=== PATIENT | female | born 1940 | race Hispanic/Latino ===

== ENCOUNTER 2017-06-08 06:16 | Day surgery (SDC) | payer MEDICARE ==
[2017-06-05 08:45] VITALS: BMI 17.8
[2017-06-08] MEDS ORDERED: Lidocaine 2% Inj (20ml) ONE ×3 (06:33→11:09)
[2017-06-08] MEDS ORDERED: Heparin 2,000 ML IV ONE (06:34)
[2017-06-08] MEDS ORDERED: Iodixanol 320 MG/ML 100 ML BOTTLE IV ONE ×2 (06:34→11:11)
[2017-06-08] MEDS ORDERED: Nitroglycerin 50mg in D5W 0 MG/0 ML BOTTLE IV ONE (06:34)
[2017-06-08] MEDS ORDERED: Phenylephrine 10 mg/ml Inj ONE (06:34)
[2017-06-08] MEDS ORDERED: Iodixanol 320 MG/ML 200 ML BOTTLE IV ONE ×2 (06:34→11:11)
[2017-06-08] MEDS ORDERED: Iohexol 350mgl/ml 50 ML ONE (06:34)
[2017-06-08 07:26] LABS: BASO # 0.03 K/mm3 (0.0-2.0); BASO % 0.6 % (0.0-3.0); EOS # 0.1 (0.0-0.7); EOS % 2.6 % (1.5-5.0); GRAN # 3.04 (1.4-6.5); GRAN % 61.6 % (50.0-68.0); HEMATOCRIT 35.4 % (36.0-48.0); LYMPH # 1.3 (1.2-3.4); LYMPH % 25.9 % (22.0-35.0); MEAN CELL VOLUME 95.2 fl (80.0-105.0); MEAN CORPUSCULAR HEMOGLOBIN 32.8 pg (25.0-35.0); MEAN CORPUSCULAR HGB CONC 34.5 g/dl (31.0-37.0); MEAN PLATELET VOLUME 9.6 fl (7.0-11.0); MONO # 0.5 (0.1-0.6); MONO % 9.3 % (1.0-6.0); RED CELL DISTRIBUTION WIDTH 13.3 % (11.5-14.5); WHITE BLOOD COUNT 4.9 10^3/ul (4.5-11.0)
[2017-06-08 07:35] LABS: BLOOD UREA NITROGEN 36 mg/dL (7-21); CALCIUM 9.5 mg/dL (8.4-10.5); CARBON DIOXIDE 40 mmol/L (21-33); CHLORIDE 88 mmol/L (98-107); CHOLESTEROL 169 mg/dL (130-200); GFR AFRICAN-AMERICAN > 60; GLUCOSE,RANDOM 95 mg/dL (70-110); SODIUM 134 mmol/L (132-148)
[2017-06-08 07:39] LABS: INR 1.08 (0.93-1.08); PARTIAL THROMBOPLASTIN TIME 29.1 Seconds (23.7-30.8)
[2017-06-08 07:49] LABS: POTASSIUM 2.6 mmol/L (3.6-5.0)
[2017-06-08] MEDS ORDERED: Potassium Chloride 20 mEq ER Tab PO ONE (07:55)
[2017-06-08] MEDS ORDERED: Midazolam 2 MG/2 ML VIAL ONE ×4 (08:29→12:36)
[2017-06-08] MEDS ORDERED: Sodium Chloride 0.9% 1,000 ML IV SCH (10:00)
[2017-06-08] MEDS ORDERED: Nitroglycerin 50mg in D5W 50 MG/250 ML BOTTLE IV ONE (11:11)
[2017-06-08] MEDS ORDERED: Sodium Chloride 0.45% 1,000 ML IV SCH (13:45)
--- NOTE | 2017-06-08 13:46 | CARDCATH ---
PROCEDURE DATE: 06/08/2017 HISTORY: The patient is a 76-year-old woman who presents with marked shortness of breath. She was found to have critical aortic stenosis on her echocardiogram. She suffers from severe peripheral vascular disease due to her heavy smoking. PROCEDURE: Right and left heart catheterization with coronary angiography and left ventriculogram. The patient accessed through the femoral arteries, unable due to marked calcification and marked atherosclerosis in the femoral arteries. The catheterization was performed with a 6-Irish sheath in the left brachial area. There were no complications. The findings on catheterization including hemodynamic data which revealed normal right heart pressures. No pulmonary retention was noted. Her left ventricle was visualized in the PERSON projection. In the PERSON projection, wall motion is within normal limits. Estimated ejection fraction of 60%. Simultaneous supra-aortic valvular measurement and LV measurement revealed a [id number] gradient of 20 mmHg. Her coronary anatomy revealed a right dominant circulation. The RCA was visualized and found to have intimal irregularities without significant stenoses. The left main artery was unremarkable. The LAD and diagonal vessels revealed intimal irregularities without significant stenoses. The circumflex artery revealed an eccentric and calcified 70% to 80% stenosis in its proximal portion. Manual compression was used to close the femoral artery site as well as left brachial site. 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 Mild aortic stenosis. Normal LV function. No pulmonary hypertension. Severe peripheral vascular disease. Given these findings, it was elected not to do angioplasty and stenting of the proximal circumflex artery. Given her need for eye surgery urgently. Her mild aortic stenosis, we will allow her to undergo the procedure at reasonable risk. I have put her on beta blockers for some cardial protective for anesthesia. I have discussed this with the patient and daughter in detail. The need to stop smoking was emphasized. Sanju Rich MD
[2017-06-08 16:03] VITALS: TEMP 98.4
[2017-06-08 16:44] VITALS: O2SAT 97
[2017-06-08 17:34] VITALS: BP 112/70; PULSE 94; RESP 18
--- NOTE | 2017-06-08 20:30 | VASCULAR ---
PROCEDURE: 1. Arch arteriogram 2. Selective left upper extremity arteriogram. HISTORY: Status post cardiac catheterization via brachial artery approach. Acute left hand ischemia. Evaluate brachial artery puncture site for occlusion. PHYSICIAN(S): Sanju Contrears M.D. TECHNIQUE: The relative risks and indications of the procedure were explained to the patient and consent obtained. The patient was hydrated prior to the procedure and the appropriate labs drawn. The patient was placed supine on the arteriogram table and the right groin prepped and draped in the usual sterile fashion. Conscious sedation and monitoring were provided throughout the procedure by a nurse. Via a right common femoral artery approach, a 5 Estonian sheath was placed in the right groin. Through the sheath and over a guidewire, a 5 Estonian flush catheter was placed in the aortic arch and an LATVIAN DSA arch arteriogram performed. The catheter was exchanged for a 5 Estonian day this catheter placed the origin of the subclavian artery. With some difficulty the elongated arch was negotiated in the catheter placed in the mid left subclavian artery. An overlapping DSA left upper extremity arteriogram was performed. Distal imaging was obtained. The sheath was removed hemostasis obtained. The patient tolerated the procedure well. FINDINGS: The arch and great vessels are heavily calcified. The arch is elongated. The images are degraded by motion. The great vessels appear patent. The left vertebral artery appears to arise directly from the arch. The left subclavian artery is patent. There is slow flow in the left brachial artery initially consistent with a distal occlusion. 0.035 J-wire was advanced distally. At this point the patient noted abrupt change in the perfusion the hand. Imaging revealed a widely patent left brachial artery. No evidence of focal trauma or thrombus was appreciated. Brisk flow is seen into the left radial and ulnar arteries. Distal imaging is normal. The pulmonic she is intact. The metacarpal arteries are normal. IMPRESSION: 1.Normal left upper extremity arteriogram. There is an abrupt change in the clinical dilatation of the left hand as a J wire was advanced into the distal left brachial artery. No thrombus or vessel trauma was appreciated. No distal emboli are seen.
--- NOTE | 2017-06-08 21:30 | CARD ---
APPROVED REPORT EKG Measurement Heart [id number] <Conclusion> Normal sinus rhythm Normal ECG
== END 2017-06-08 18:20 | disposition home or self-care (01) ==
LOC: CATH 06:16
PROVIDERS: ATTEND Internal Medicine Cardiovascular Disease
DX: I25.10 Atherosclerotic heart disease of native coronary artery without angina pectoris (principal); I35.0 Nonrheumatic aortic (valve) stenosis; I73.9 Peripheral vascular disease, unspecified
CPT/HCPCS: 36225; 36415; 80048; 80061; 85025; 85610; 85730; 86850; 86900; 93005; 93460; 99152; 99153; C1769 ×3; C1894; C2629; J1644; J2250; J2405; J3010; J3480; J7030; J7040 ×2; Q9967

== ENCOUNTER 2017-09-08 17:12 | Emergency (ER) | payer MEDICARE ==
[2017-09-08 17:19] VITALS: BMI 19.7
[2017-09-08 17:39] VITALS: RESP 18
--- NOTE | 2017-09-08 18:38 | RAD ---
HISTORY: cough/weakness COMPARISON: 06/16/2016 FINDINGS: LUNGS: Perihilar infiltrate, mass right upper lobe. The finding is marked on the study for review. PLEURA: No significant pleural effusion identified, no pneumothorax apparent. CARDIOVASCULAR: Normal. OSSEOUS STRUCTURES: Degenerative changes right shoulder. Findings related to kyphoplasty lower thoracic vertebral body. VISUALIZED UPPER ABDOMEN: Normal. OTHER FINDINGS: None. IMPRESSION: Right upper lobe infiltrate/ mass. Follow-up to resolution strongly recommended. Please note: If Neoplasm is suspected CT scan of the thorax advised. .
[2017-09-08 18:49] LABS: BASO # 0.01 K/mm3 (0.0-2.0); BASO % 0.1 % (0.0-3.0); GRAN # 9.4 (1.4-6.5); GRAN % 89.4 % (50.0-68.0); HEMOGLOBIN 13.1 g/dL (12.0-16.0); LYMPH # 0.6 (1.2-3.4); LYMPH % 5.2 % (22.0-35.0); MEAN CELL VOLUME 99.5 fl (80.0-105.0); MEAN CORPUSCULAR HEMOGLOBIN 33.6 pg (25.0-35.0); MEAN CORPUSCULAR HGB CONC 33.8 g/dl (31.0-37.0); MEAN PLATELET VOLUME 10.7 fl (7.0-11.0); MONO # 0.6 (0.1-0.6); MONO % 5.3 % (1.0-6.0); RBC 3.9 10^6/uL (3.5-6.1); RED CELL DISTRIBUTION WIDTH 13.2 % (11.5-14.5); WHITE BLOOD COUNT 10.5 10^3/ul (4.5-11.0)
[2017-09-08 19:05] LABS: ALB/GLOB RATIO 1.2 (1.1-1.8); ALBUMIN 4.5 g/dL (3.0-4.8); CALCIUM 10.6 mg/dL (8.4-10.5)
[2017-09-08 19:09] LABS: PARTIAL THROMBOPLASTIN TIME 66.8 Seconds (25.1-36.5); PROTHROMBIN TIME 74.4 SECONDS (9.4-12.5)
--- NOTE | 2017-09-08 19:11 | ED PDOC ---
"Arrival/HPI <Staci Soares - Last Filed: 09/09/17 01:30> - General Historian: Patient <Carolee Carrasquillo - Last Filed: 09/09/17 02:08> - General Chief Complaint: Back Pain Time Seen by Provider: 09/08/17 17:26 - History of Present Illness Narrative History of Present Illness (Text): 09/08/17 19:06 76yr old female presents today with chronic neck and back pain. pt states since she had eye surgery on jun 15 2017 and had to use her walker more she started to develop neck pain on the right side. Pt states over time pain has radiated into the right hand with decreased sensation. pt states she then developed pain to the left side of the neck and tingling sensation into the left hand. pt states he has been dealing with chronic back pain and is on percocet at home. pt states over the past week she has noticed that she has been becoming more weak in the bilateral lower extremities and yesterday had become constipated and noticed numbness to the buttock. pt states she has been having a tingling sensation in the lower legs bilaterally for the week, gradually worsening, and around 11am today the patient states that she has become incontinence of stool. pt denies fever/chill. pt with hx of cough. denies any other complaints. (Carolee Carrasquillo) Past Medical History - Provider Review Nursing Documentation Reviewed: Yes - Travel History Have you recently traveled outside [place] w/in the past 3 mons?: No - Infectious Disease Hx of Infectious Diseases: None - Tetanus Immunization Tetanus Immunization: Unknown - Reproductive Menopause: Yes - Cardiac Hx Pacemaker: No - Pulmonary Hx Chronic Obstructive Pulmonary Disease (COPD): Yes - Neurological Hx Paralysis: No - HEENT Hx Cataracts: Yes (b/l cataracts no sx) Other/Comment: sx for detached retina right eye 2 days ago 2nd sx same eye uses silicone oil, first sx used gas bubble which did not work, visually impaired right eye sees shadows and diminished peripheral vision - Renal Hx Renal Disorder: No - Endocrine/Metabolic Hx Endocrine Disorders: No - Hematological/Oncological Hx Blood Transfusions: Yes Hx Blood Transfusion Reaction: No - Integumentary Hx Dermatological Disorder: No Other/Comment: rle varicone veins, dry skin to feet, buttocks reddened, multiple brown spots on upper back - Musculoskeletal/Rheumatological Hx Musculoskeletal Disorders: Yes - Gastrointestinal Hx Gastrointestinal Disorders: No - Genitourinary/Gynecological Hx Reproductive Disorders: No - Psychiatric Hx Emotional Abuse: No Hx Physical Abuse: No Hx Substance Use: No - Surgical History Hx Musculoskeletal Surgery: Yes (left hip replacement) Other/Comment: kyphoplasty - Anesthesia Hx Anesthesia Reactions: No Hx Malignant Hyperthermia: No - Suicidal Assessment Feels Threatened In Home Enviroment: No <Carolee Carrasquillo - Last Filed: 09/09/17 02:08> Family/Social History - Physician Review Nursing Documentation Reviewed: Yes Family/Social History: Unknown Family HX Smoking Status: Heavy Smoker > 10 Cigarettes Daily Hx Alcohol Use: No Hx Substance Use: No Hx Substance Use Treatment: No <Carolee Carrasquillo - Last Filed: 09/09/17 02:08> Allergies/Home Meds <Staci Soares - Last Filed: 09/09/17 01:30> <Carolee Carrasquillo - Last Filed: 09/09/17 02:08> Allergies/Adverse Reactions: Allergies No Known Allergies Allergy (Verified 06/16/16 19:00) Home Medications: Home Meds Medication Instructions Recorded Confirmed Albuterol Sulfate 2.5 mg IH QID 09/08/17 09/08/17 Alprazolam [Xanax] 0.5 mg PO BID 09/08/17 09/08/17 Docusate [Colace] 100 mg PO DAILY 09/08/17 09/08/17 Furosemide [Lasix] 40 mg PO DAILY 09/08/17 09/08/17 Iron Ps Cmplx/Vit B12/FA 150 mg PO DAILY 09/08/17 09/08/17 [Poly-Iron 150 Forte Capsule] Oxycodone HCl/Acetaminophen 7.5 mg PO PRN PRN 09/08/17 09/08/17 [Percocet 7.5-325 mg Tablet] Potassium Chloride [Klor-Con] 50 mg PO DAILY 09/08/17 09/08/17 Simvastatin 10 mg PO DAILY 09/08/17 09/08/17 Warfarin [Coumadin] 6 mg PO DAILY 09/08/17 09/08/17 metOLazone [Zaroxolyn] 2.5 mg PO DAILY 09/08/17 09/08/17 Review of Systems - Review of Systems Systems not reviewed;Unavailable: Other (weakness) Constitutional: absent: Fatigue, Fevers Respiratory: Cough. absent: SOB, Wheezing Cardiovascular: absent: Chest Pain, Palpitations Gastrointestinal: Constipation, Diarrhea. absent: Abdominal Pain, Nausea, Vomiting Genitourinary Female: absent: Dysuria, Vaginal Bleeding, Vaginal Discharge Musculoskeletal: Arthralgias, Back Pain, Neck Pain Neurological: Gait Changes, Other (bilateral lower leg weakness, saddle paresthesias x2 days). absent: Headache, Dizziness, Speech Changes Psychiatric: absent: Anxiety, Depression <Azoia,Carolee T - Last Filed: 09/09/17 02:08> Physical Exam Vital Signs Reviewed: Yes Temperature: Afebrile Blood Pressure: Normal Pulse: Regular Respiratory Rate: Normal Appearance: Positive for: Well-Appearing, Non-Toxic, Comfortable Pain Distress: None Mental Status: Positive for: Alert and Oriented X 3 - Systems Exam Head: Present: Atraumatic Mouth: Present: Moist Mucous Membranes Neck: Present: Normal Range of Motion Respiratory/Chest: Present: Good Air Exchange, Rhonchi. No: Clear to Auscultation, Respiratory Distress, Accessory Muscle Use, Wheezes, Decreased Breath Sounds Cardiovascular: Present: Regular Rate and Rhythm. No: Murmurs, Tachycardic Abdomen: Present: Normal Bowel Sounds. No: Tenderness, Distention, Peritoneal Signs, Rebound, Guarding Rectal: Present: Other (no). No: Occult Blood, Rectal Tenderness, Melena, Hemorrhoids, Normal Rectal Tone (NO rectal tone), Fissures, Nodule/Mass/Lesions Back: Present: Normal Inspection, Midline Tenderness, Paraspinal Tenderness Upper Extremity: Present: Capillary Refill < 2s. No: Normal ROM (limited abduction of right arm with decreased brick grader strenght. full rom of left arm with limited brick grader strength and decreased sensation. ), Tenderness, Swelling, Erythema, Neurovascularly Intact (+ decreased sensation in both arms bilaterally ), Temperature Abnormalties Lower Extremity: Present: NORMAL PULSES, Capillary Refill < 2 s, Other ( decreased sensation bilaterally ). No: CALF TENDERNESS, Normal ROM, Tenderness , Swelling, Erythema, Deformity Neurological: Present: Speech Normal, Memory Normal. No: Motor Func Grossly Intact (bilateral weakness with straight leg; 3/5 bilateraly. decreased sensation bilaterally.), Normal Sensory Function Skin: Present: Warm, Dry, Normal Color. No: Rashes Psychiatric: Present: Alert, Oriented x 3 <Carolee Carrasquillo T - Last Filed: 09/09/17 02:08> Vital Signs Temp Pulse Resp BP Pulse Ox 09/09/17 00:00 71 18 97/53 L 96 09/08/17 22:47 92 H 18 91/56 L 94 L 09/08/17 22:00 80 18 110/61 95 09/08/17 17:38 98.0 F 78 18 122/78 99 Medical Decision Making <Staci Soares - Last Filed: 09/09/17 01:30> <Carolee Carrasquillo - Last Filed: 09/09/17 02:08> ED Course and Treatment: Dr. Bravo Neurosurgeon trail construction worker after reviewing images stated that there was a rotary subluxation component in her cervical vertebra that would likley demand special neurosurgical equipmant (such as neuro navigator not present at [facility] institution). Furthermore he opined that a spinal cord decompression +/- laminectomy will likley be necessary. He advised [facility] transfer. 09/09/17 01:31 Dr. Goodson, [facility] Neurosurgery resident stated that Dr. Celestin his attending will accept the case upon arrival to [facility] , Dr. Perera the ER doctor acepts the case as an ED to ED traser officially . Pt to be transferred promptly. Serial neurological exams corroborative of earlier noted. (Staci Soares) 76yr old female with chronic neck and back pain- progressively worsening over the past week. no with saddle paresthesias with constipation since yesterday with incontinence of stool today around 11 AM. pt takes coumadin for afib. pt with saddle paresthesias and weakness in the upper and lower extremities that has been chronically worsening. Due to bowel incontinence and no rectal tone MRI of the cervical lumbar and thoracic spines have been ordered. cbc: wnl cMP; bun55/ cr; 1.3 INR: 6.26 UA: + leukocytes cxr; FINDINGS: LUNGS: Perihilar infiltrate, mass right upper lobe. The finding is marked on the study for review. PLEURA: No significant pleural effusion identified, no pneumothorax apparent. CARDIOVASCULAR: Normal. OSSEOUS STRUCTURES: Degenerative changes right shoulder. Findings related to kyphoplasty lower thoracic vertebral body. VISUALIZED UPPER ABDOMEN: Normal. OTHER FINDINGS: None. IMPRESSION: Right upper lobe infiltrate/ mass. Follow-up to resolution strongly recommended. Please note: If Neoplasm is suspected CT scan of the thorax advised. . 09/08/17 19:38 pt with Right upper lobe infiltrate vs mass; will do CT. pt completed LSpine MRI but pt refused cervical and thoracic spine MRIs due to agitation/anxiety despite valium 09/08/17 20:46 pt now agreed to Cspine and T spine MRI. Lumbar MRI; FINDINGS: Vertebrae: There is grade 3, 2 cm anterolisthesis of L5 with bilateral pars defects. Moderate compression deformity of L5. Post vertebroplasty of T12 and L4. Mild L3 and L4 compression deformities without evidence of acuity. Biconcave severe endplate compression deformities of L1 with large Schmorl's nodes. There is 3 mm retropulsion of the bony fragments and mild posterior bone marrow edema of L1, suggesting a subacute component. Spinal cord: The conus terminates at L1-L2. The visualized cord signal is within normal limits. Soft tissues: Unremarkable. Kidneys and ureters: Bilateral renal cysts. Bladder: Significantly distended urinary bladder. DISCS/SPINAL CANAL/NEURAL FORAMINA: Moderate and severe degenerative disc disease in the visualized thoracic spine without significant posterior disc contour abnormality. SULEMA ROCHA | Preliminary Radiology Report L1-L2: No significant posterior disc contour abnormality. No spinal canal or foraminal stenosis. Mild bilateral facet arthropathy. L2-L3: Diffuse disc bulge with narrowing of the bilateral lateral recess, contacting the traversing right nerve root and approaching but not definite contacting the traversing left nerve. No spinal canal stenosis. Mild bilateral facet arthropathy. L3-L4: Posterior and right foraminal disc protrusion causing mild narrowing of the right neural foramen and effacement of the right lateral recess. No spinal canal stenosis. L4-L5: Diffuse disc bulge and superimposed left lateral recess and biforaminal disc protrusion causing mild right foraminal stenosis. Moderate bilateral facet arthropathy. No spinal canal stenosis. L5-S1: Significant disc uncovering and 2 cm L5 anterolisthesis combine to cause severe spinal canal stenosis at L5-S1. Moderate bilateral foraminal stenosis. IMPRESSION: 1. Significant disc uncovering and 2 cm L5 anterolisthesis combine to cause severe spinal canal stenosis at L5-S1. Other less severe degenerative changes are described above. 2. Biconcave severe endplate compression deformities of L1 with large superior and inferior endplate Schmorl's nodes. There is 3 mm retropulsion of the bony fragments and mild posterior bone marrow edema of L1, suggesting a subacute component. Small focus of posterior bone marrow edema of the L1 vertebral body suggests a subacute component. 3. Significantly distended urinary bladder. Please correlate clinically. 09/08/17 22:05 MRI thoracic; FINDINGS: Vertebrae: Moderate sigmoid scoliosis. No thoracic spinal listhesis. Multilevel mild superior endplate compression deformities, without evidence of acute fracture. Discs/spinal canal/neural foramina: No abnormal cord signal or spinal canal stenosis in the thoracic spine. No significant foraminal stenosis. Spinal cord: No abnormal cord signal or cord compression in the thoracic spine. Soft tissues: Unremarkable. Other findings: There is a focal right midlung opacity measuring approximately 2.4 cm, suspicious for mass or consolidation. IMPRESSION: No abnormal cord signal or spinal canal stenosis in the thoracic spine. There is a focal right midlung opacity measuring approximately 2.4 cm, suspicious for mass or consolidation. Please correlate with dedicated chest imaging such as CT or x- ray. MRI: cervical spine; FINDINGS: Vertebrae: 0.8 cm anterolisthesis of C3, without adjacent soft tissue swelling or bone marrow edema to suggest acuity. The neck is held in left lateral flexion and a degree of cervical scoliosis is not excluded. No acute fracture. Spinal cord: 0.4 cm focus of increased T2 signal in the cervical cord at the level of C4-C5 is not confirmed on the axial views, but a focus of compression related myelomalacia is considered, less likely an mass lesion. Soft tissues: No prevertebral soft tissue swelling. DISCS/SPINAL CANAL/NEURAL FORAMINA: C2-C3: No significant posterior disc contour abnormality. No spinal canal or foraminal stenosis. C3-C4: Disc uncovering. Mild spinal canal stenosis and deformity of the cervical cord. Mild bilateral foraminal stenosis. C4-C5: Multifactorial moderate spinal canal stenosis with mild compression of the cervical cord at C4-C5. No significant foraminal stenosis. C5-C6: Small posterior disc osteophyte complex without significant mass effect. C6-C7: Small posterior disc osteophyte complex without significant mass effect. C7-T1: No significant posterior disc contour abnormality. No spinal canal or foraminal stenosis. IMPRESSION: 1. 0.8 cm anterolisthesis of C3, without adjacent soft tissue swelling or bone marrow edema to suggest acuity. Please correlate clinically. 2. Mild compression of the cervical cord at C4-C5. 3. 0.4 cm focus of increased T2 signal in the cervical cord at the level of C4- C5 is not confirmed on the axial views, but a focus of compression related myelomalacia is considered, less likely a mass or other white matter lesion. CT chest FINDINGS: Lungs: Partial opacification tracheobronchial tree, predominantly within the left lower lobe. Moderate centrilobular emphysema. 3.4 x 3.0 CM mass containing foci of gas within the superior segment of the right lower lobe, highly suspicious for malignancy. Consider biopsy. Prominence of the interstitial markings at left lung base with filling of the left basilar bronchial system with mucous secretions. Atelectasis posteriorly at left lung base. Pleural space: No pneumothorax. No pleural effusion. Heart: Unremarkable. No cardiomegaly. No significant pericardial effusion. Bones/joints: Severe osteoporosis. Kyphoscoliosis. Multiple compression deformities, likely old. Previous vertebroplasty at approximately T. 12. No dislocation. Soft tissues: Unremarkable. Vasculature: Advanced carotid artery calcifications. Atherosclerotic vascular disease. No thoracic aortic aneurysm. Lymph nodes: No axillary adenopathy. Coronary artery calcifications. Heart size is normal. No pericardial effusion. Enlarged pulmonary artery consistent with pulmonary artery hypertension. No significant mediastinal, or hilar adenopathy. Upper abdomen: No significant abnormality in the upper abdomen. Other findings: No mass at the base of the neck. IMPRESSION: 1. 3.4 x 3.0 CM mass in superior segment right lower lobe with partial cavitation. Biopsy suggested to exclude the possibility of malignancy. 2. Moderate centrilobular emphysema. 3. Severe osteoporosis with multiple compression fractures. 4. Remainder of findings as above. 09/08/17 22:09 I discussed the results in depth with the patient and her daughter. Her daughter states that the patient had a known abnormal cervical spine x-ray and a known lung mass found on prior chest x-ray and was scheduled for a neurology appointment yesterday but due to the snow they canceled. pt given 10mg decadron IV. dr. soares; discussed case in depth with neurosurgeon dr. naylor who reviewed ALL MRI images. suggests transfer to [facility]. dr soares saw and evaluated patient at bedside. dr. soares spoke with neurosurgeon at [facility]. agrees to transfer. impression; cord compression, neck pain, back pain, bowel incontinence. transfer to [facility] (NeidaCarolee Estefania) - Lab Interpretations Lab Results: 09/08/17 18:15 09/08/17 18:15 Lab Results 09/08/17 19:35: Urine Color Yellow, Urine Appearance Sl cloudy, Urine pH 7.0, Ur Specific [place] 1.010, Urine Protein Negative, Urine Glucose (UA) Negative, Urine Ketones Negative, Urine Blood Small H, Urine Nitrate Negative, Urine Bilirubin Negative, Urine Urobilinogen 0.2, Ur Leukocyte Esterase Small H, Urine RBC 2 - 5, Urine WBC 2 - 5, Ur Epithelial Cells 0 - 2, Urine Bacteria Mod 09/08/17 19:00: Blood Type A POSITIVE, Antibody Screen Negative, BBK History Checked Patient has bt 09/08/17 18:15: WBC 10.5 D, RBC 3.90, Hgb 13.1, Hct 38.8, MCV 99.5 D, MCH 33.6 , MCHC 33.8, RDW 13.2, Plt Count 146, MPV 10.7, Gran % 89.4 H, Lymph % (Auto) 5.2 L, Barnes % (Auto) 5.3, Eos % (Auto) 0.0 L, Baso % (Auto) 0.1, Gran # 9.40 H, Lymph # 0.6 L, Barnes # 0.6, Eos # 0.0, Baso # 0.01 09/08/17 18:15: Sodium 139, Potassium 3.4 L, Chloride 94 L, Carbon Dioxide 32, Anion Gap 17, BUN 55 H, Creatinine 1.3 H, Est GFR ( Amer) 48, Est GFR ( Non-Af Amer) 40, Random Glucose 115 H, Calcium 10.6 H, Total Bilirubin 1.0, AST 26, ALT 30, Alkaline Phosphatase 60, Total Protein 8.0, Albumin 4.5, Globulin 3.6, Albumin/Globulin Ratio 1.2 09/08/17 18:15: PT 74.4 H, INR 6.29 H*, APTT 66.8 H - RAD Interpretation Radiology Orders: 09/08/17 17:57 SPINAL CANAL LUMBAR W/O CONT [MRI] Stat 09/08/17 18:08 CHEST PORTABLE [RAD] Stat 09/08/17 19:54 CHEST W/O CONTRAST [CT] Stat 09/08/17 20:02 SPINAL CANAL CERVICAL W/O CONT [MRI] Stat SPINAL CANAL THORACIC W/O CONT [MRI] Stat - Medication Orders Current Medication Orders: Sodium Chloride (Sodium Chloride 0.9%) 500 mls @ 100 mls/hr IV .Q5H ANUJA Discontinued Medications Alprazolam (Xanax) 1 mg PO ONCE ONE PRN Reason: Protocol Stop: 09/08/17 20:06 Last Admin: 09/08/17 20:20 Dose: 1 mg Dexamethasone (Decadron Inj) 10 mg IVP STAT STA Stop: 09/08/17 20:47 Last Admin: 09/08/17 21:30 Dose: 10 mg IVP Administration Document 09/08/17 21:30 JOL (Rec: 09/09/17 00:49 JOL [facility] [id number]) Charges for Administration # of IVP Administrations 1 Diazepam (Valium) 5 mg PO ONCE ONE Stop: 09/08/17 18:07 Last Admin: 09/08/17 18:19 Dose: 5 mg Oxycodone/Acetaminophen (Percocet 5/325 Mg Tab) 1 tab PO STAT STA Stop: 09/08/17 22:44 Last Admin: 09/08/17 22:55 Dose: Not Given Non-Admin Reason: Allergy - PA / INTERCHANGE AGENT / Resident Statement / has reviewed & agrees with the documentation as recorded. <Staci Soares - Last Filed: 09/09/17 01:30> Disposition/Present on Arrival <Staci Soares - Last Filed: 09/09/17 01:30> - Present on Arrival Any Indicators Present on Arrival: No History of DVT/PE: No History of Uncontrolled Diabetes: No Urinary Catheter: No History of Decub. Ulcer: No History Surgical Site Infection Following: None - Disposition Have Diagnosis and Disposition been Completed?: Yes Disposition Time: 02:00 Patient Plan: Other (transfer) <Carolee Carrasquillo - Last Filed: 09/09/17 02:08> - Disposition Diagnosis: Spinal cord compression, Neck pain, Bowel incontinence, Back pain, Lung mass, Supratherapeutic INR, Renal insufficiency Disposition: Transfer [facility] Patient Problems: Current Active Problems Problem Status Onset Back pain Acute Bowel incontinence Acute Lung mass Acute Neck pain Acute Renal insufficiency Acute Spinal cord compression Acute Supratherapeutic INR Acute Condition: CRITICAL Referrals: Hellen Shipman MD [Primary Care Provider] - Follow up with primary Forms: [employer] (Surinamese)"
[2017-09-08 19:12] LABS: INR 6.29 (0.93-1.08)
[2017-09-08 20:40] LABS: URINE BILIRUBIN NEGATIVE (NEGATIVE); URINE BLOOD SMALL (NEGATIVE); URINE GLUCOSE (UA) NEGATIVE (NEGATIVE); URINE LEUKOCYTE ESTERASE SMALL Leu/uL (NEGATIVE); URINE NITRATE NEGATIVE (NEGATIVE); URINE PROTEIN NEGATIVE mg/dL (<30 mg/dL); URINE UROBILINOGEN 0.2 E.U./dL (<1 E.U./dL)
[2017-09-08 20:56] LABS: URINE APPEARANCE SL CLOUDY (CLEAR); URINE COLOR YELLOW (YELLOW)
[2017-09-08 21:23] LABS: URINE BACTERIA MOD (NEG); URINE EPITHELIAL CELLS 0 - 2 /hpf (0-5)
--- NOTE | 2017-09-08 22:35 | CT ---
EXAM: CT Chest Without Intravenous Contrast CLINICAL HISTORY: 76 years old, female; Abnormal findings; Lung mass or nodule; Single or solitary nodule; Additional info: Right upper lung mass TECHNIQUE: Axial computed tomography images of the chest without intravenous contrast. All CT scans at this facility use one or more dose reduction techniques, viz.: automated exposure control; ma/kV adjustment per patient size (including targeted exams where dose is matched to indication; i.e. head); or iterative reconstruction technique. Coronal and sagittal reformatted images were created and reviewed. COMPARISON: CT - CHEST W/O CONTRAST 2016-06-19 17:23 FINDINGS: Lungs: Partial opacification tracheobronchial tree, predominantly within the left lower lobe. Moderate centrilobular emphysema. 3.4 x 3.0 CM mass containing foci of gas within the superior segment of the right lower lobe, highly suspicious for malignancy. Consider biopsy. Prominence of the interstitial markings at left lung base with filling of the left basilar bronchial system with mucous secretions. Atelectasis posteriorly at left lung base. Pleural space: No pneumothorax. No pleural effusion. Heart: Unremarkable. No cardiomegaly. No significant pericardial effusion. Bones/joints: Severe osteoporosis. Kyphoscoliosis. Multiple compression deformities, likely old. Previous vertebroplasty at approximately T. 12. No dislocation. Soft tissues: Unremarkable. Vasculature: Advanced carotid artery calcifications. Atherosclerotic vascular disease. No thoracic aortic aneurysm. Lymph nodes: No axillary adenopathy. Coronary artery calcifications. Heart size is normal. No pericardial effusion. Enlarged pulmonary artery consistent with pulmonary artery hypertension. No significant mediastinal, or hilar adenopathy. Upper abdomen: No significant abnormality in the upper abdomen. Other findings: No mass at the base of the neck. IMPRESSION: 1. 3.4 x 3.0 CM mass in superior segment right lower lobe with partial cavitation. Biopsy suggested to exclude the possibility of malignancy. 2. Moderate centrilobular emphysema. 3. Severe osteoporosis with multiple compression fractures. 4. Remainder of findings as above.
[2017-09-08] MEDS ORDERED: Oxycodone/Acetaminophen 5/325 mg Tab PO STA (22:43)
[2017-09-09 00:46] VITALS: PULSE 71
[2017-09-09] MEDS ORDERED: Sodium Chloride 0.9% 1,000 ML IV STA (01:22)
[2017-09-09] MEDS ORDERED: Sodium Chloride 0.9% 500 ML IV SCH (01:45)
[2017-09-09 04:30] VITALS: BP 96/50; O2SAT 98
[2017-09-09] MEDS ORDERED: Albuterol-Ipratrop 3 mg / 0.5 (3 ml) UD ONE (04:38)
[2017-09-09 05:21] VITALS: TEMP 98.2
--- NOTE | 2017-09-09 07:36 | MRI ---
PROCEDURE: MR LUMBAR SPINE WITHOUT CONTRAST HISTORY: weakness lower legs, incontinence COMPARISON: Comparison is made with the previous CT of the chest abdomen pelvis dated 10/09/2012 TECHNIQUE: Multiecho multiplanar sequences were performed through the lumbar spine without the use of intravenous contrast. FINDINGS: There is greatly 3 2.2 centimeter anterior spondylolisthesis of L5 relative to S1. There are multilevel moderate compression deformity noted at the lumbar spine more prominent at L1 and L5. The patient is again status post vertebroplasty of T12 and L4 there are [id number] compression deformity of L4. Jcmn-hr-aeniirmm compression deformities are also noted at the lower thoracic spine. Diffuse bone marrow heterogeneous signal noted. Focal bone marrow edema at the posterior aspect of L1 may represent subacute fracture. Conus medullaris unremarkable at the level of T12 There are multiple cystic lesions seen in the kidneys. The urinary bladder is distended. T12-L1: Small osteophyte disc bulging seen associated with mild posterior ligament hypertrophy without evidence of significant spinal or neural foraminal narrowing. L1-2: Small osteophyte disc bulge complex associated with posterior ligament and facet joint hypertrophy which resulting in mild spinal narrowing. L2-3: There is small osteophyte disc bulge complex associated with posterior ligament and facet joint hypertrophy without evidence of significant spinal or neural foraminal narrowing. L3-4: Small disc protrusion associated with posterior ligament and facet joint hypertrophy which resulting in mild thecal sac stenosis. No evidence of significant neural foraminal narrowing. L4-5: There is a central and right paracentral moderate-sized disc protrusion associated with posterior ligament and facet joint hypertrophy which resulting in [id number] right paracentral at spinal stenosis and moderate right neural foraminal narrowing L5-S1: There is large uncovered disc herniation associated with posterior ligament and facet joint hypertrophy which resulting in severe spinal stenosis. OTHER FINDINGS: None. IMPRESSION: Multilevel moderate compression deformities without evidence of significant bone marrow edema suggestive of old fractures. Foci of bone marrow edema noted at the posterior and superior aspect of L1 likely represents acute or subacute fracture. Large uncovered disc herniation at L5-S1 associated with severe narrowing of the spinal canal. Moderately distended urinary bladder. Please correlate clinically. Preliminary report was submitted by [facility].
--- NOTE | 2017-09-09 08:14 | MRI ---
PROCEDURE: MR CERVICAL SPINE WITHOUT CONTRAST HISTORY: r/o spinal cord compromise COMPARISON: None available. TECHNIQUE: Multiecho multiplanar sequences were performed through the cervical spine without the use of intravenous contrast. FINDINGS: There is moderate grade 2-3 anterior spondylolisthesis of C3 related to C4 measures 9.5 millimeter. Craniocervical junction unremarkable. Yhfd-bi-bizjwknt posterior C1-C2 articulation hypertrophy noted without evidence of significant spinal canal stenosis No evidence of acute compression deformity at the cervical spine. No evidence of significant bone marrow edema or destructive bony lesion. There is severe narrowing of the cervical canal at C4 level associated with heterogeneous mild increased T2 signal in the cervical cord at this level. Findings suspicious for cord compression and mild myelomalacia could be subacute or chronic. No paraspinal abnormality. C2-C3: No disc herniation, spinal canal stenosis or neural foraminal narrowing. C3-C4: There is small to moderate uncovered disc bulge associated with posterior ligament hypertrophy which resulting in moderate spinal stenosis. Severe narrowing at the level of C4 noted. C4-C5: Osteophyte disc protrusion at C4-C5 associated with posterior ligament hypertrophy which resulting in moderate spinal stenosis. C5-C6: Small osteophyte disc bulge complex associated with mild posterior ligament hypertrophy without evidence of significant spinal stenosis. Mild right neural from noted at this level. C6-C7: Small to moderate size osteophyte disc bulge complex associated with posterior ligament hypertrophy which resulting in zktf-ty-vyhiqcbo spinal and neural foraminal narrowing. C7-T1: No disc herniation, spinal canal stenosis or neural foraminal narrowing. OTHER FINDINGS: None. IMPRESSION: Moderate grade 2-3 anterior spondylolisthesis of C3 relative to C4, measures 9.5 millimeter. No MRI evidence of acute fracture. Severe narrowing of the spinal canal at C4 level associated with heterogeneous mild increased T2 signal in the cervical cord suggestive of cord compression with mild myelomalacia. Preliminary report was submitted by [facility].
--- NOTE | 2017-09-09 09:54 | MRI ---
PROCEDURE: MR THORACIC SPINE WITHOUT CONTRAST HISTORY: r/o spinal cord compromise COMPARISON: None available. TECHNIQUE: Multiecho multiplanar sequences were performed through the thoracic spine without the use of intravenous contrast. FINDINGS: ALIGNMENT: There is exaggeration of the thoracic kyphosis with a dextroscoliosis. VERTEBRA: No fracture is observed. MARROW: Marrow signal unremarkable. PARASPINAL SOFT TISSUES: Unremarkable. CORD: Unremarkable thoracic cord. No volume loss, signal abnormality or syrinx. DISCS: Multilevel disc dehydration and minimal disc bulge is noted particularly at T10-11 with posterior ridging. OTHER FINDINGS: None. IMPRESSION: Exaggeration of the thoracic kyphosis with severe dextroscoliosis. Multilevel disc dehydration and degenerative spondylosis. No disc herniation or significant stenosis.
== END 2017-09-09 04:45 | disposition short-term general hospital (02) ==
LOC: ED 17:12
DX: G95.20 Unspecified cord compression (principal); R91.8 Other nonspecific abnormal finding of lung field; N28.9 Disorder of kidney and ureter, unspecified; R79.1 Abnormal coagulation profile; M54.2 Cervicalgia; M54.9 Dorsalgia, unspecified; R15.9 Full incontinence of feces
CPT/HCPCS: 71045; 71250; 72141; 72146; 72148; 80053; 81001; 85025; 85610; 85730; 86850; 86900; 87086; 96374; 99285; J1100; J7040

== ENCOUNTER 2017-09-25 03:59 | Inpatient (IN) | payer MEDICARE ==
--- NOTE | 2017-09-25 04:16 | ED PDOC ---
Arrival/HPI <RalphNilesh - Last Filed: 09/25/17 17:53> - General Historian: Patient, Snf, EMS - History of Present Illness Symptom Onset: Gradual Symptom Course: Unchanged Activities at Onset: Light Context: Home (long-term) <Akin Bernard - Last Filed: 09/27/17 17:16> - General Time Seen by Provider: 09/25/17 04:03 - History of Present Illness Narrative History of Present Illness (Text): 09/25/17 04:15 Dalila Coles is a 76 year old female, whose past medical history includes recent cervical spine surgery at [facility], chronic atrial fibrillation, COPD, hypertension, hyperlipidemia, compression fracture of L1/L2, and osteoarthritis , who presents to the Emergency department transferred from skilled nursing for shortness of breath tonight. Limited HPI and ROS secondary to patient's acuity of condition. (Akin Bernard) Past Medical History - Provider Review Nursing Documentation Reviewed: Yes - Infectious Disease Hx of Infectious Diseases: None - Tetanus Immunization Tetanus Immunization: Unknown - Cardiac Hx Pacemaker: No - Pulmonary Hx Chronic Obstructive Pulmonary Disease (COPD): Yes - Neurological Hx Paralysis: No - HEENT Hx Cataracts: Yes (b/l cataracts no sx) Other/Comment: sx for detached retina right eye 2 days ago 2nd sx same eye uses silicone oil, first sx used gas bubble which did not work, visually impaired right eye sees shadows and diminished peripheral vision - Renal Hx Renal Disorder: No - Endocrine/Metabolic Hx Endocrine Disorders: No - Hematological/Oncological Hx Blood Transfusions: Yes Hx Blood Transfusion Reaction: No - Integumentary Hx Dermatological Disorder: No Other/Comment: rle varicone veins, dry skin to feet, buttocks reddened, multiple brown spots on upper back - Musculoskeletal/Rheumatological Hx Musculoskeletal Disorders: Yes - Gastrointestinal Hx Gastrointestinal Disorders: No - Genitourinary/Gynecological Hx Reproductive Disorders: No - Psychiatric Hx Emotional Abuse: No Hx Physical Abuse: No Hx Substance Use: No - Surgical History Hx Musculoskeletal Surgery: Yes (left hip replacement) Other/Comment: kyphoplasty - Anesthesia Hx Anesthesia Reactions: No Hx Malignant Hyperthermia: No - Suicidal Assessment Feels Threatened In Home Enviroment: No <Akin Bernard - Last Filed: 09/27/17 17:16> Family/Social History - Physician Review Nursing Documentation Reviewed: Yes Family/Social History: Unknown Family HX Smoking Status: Heavy Smoker > 10 Cigarettes Daily Hx Alcohol Use: No Hx Substance Use: No Hx Substance Use Treatment: No <Akin Bernard - Last Filed: 09/27/17 17:16> Allergies/Home Meds <RalphNilesh - Last Filed: 09/25/17 17:53> <Akin Bernard - Last Filed: 09/27/17 17:16> Allergies/Adverse Reactions: Allergies No Known Allergies Allergy (Verified 09/25/17 04:14) Home Medications: Home Meds Medication Instructions Recorded Confirmed Albuterol Sulfate 2.5 mg IH Q6 09/08/17 09/25/17 Alprazolam [Xanax] 0.5 mg PO Q8 09/08/17 09/25/17 Docusate [Colace] 200 mg PO HS 09/08/17 09/25/17 Potassium Chloride [Klor-Con] 50 mg PO DAILY 09/08/17 09/25/17 Warfarin [Coumadin] 5 mg PO DAILY 09/08/17 09/25/17 Acetaminophen [Non-Aspirin Pain 620 mg PO Q6 09/25/17 09/25/17 Relief] Aspirin [Adult Low Dose Aspirin EC] 81 mg PO DAILY 09/25/17 09/25/17 Atorvastatin [Lipitor] 40 mg PO HS 09/25/17 09/25/17 Budesonide/Formoterol Fumarate 2 puff INH BID 09/25/17 09/25/17 [Symbicort 160-4.5 Mcg Inhaler] Ferrous Sulfate [Ferosul] 300 mg PO DAILY 09/25/17 09/25/17 Folic Acid 1 mg PO DAILY 09/25/17 09/25/17 Sennosides [Senna] 8.6 mg PO HS 09/25/17 09/25/17 Thiamine HCl [Thiamine HCl] 100 mg PO DAILY 09/25/17 09/25/17 oxyCODONE/Acetaminophen [Percocet 1 tab PO Q6 09/25/17 09/25/17 5/325 mg Tab] Review of Systems - Review of Systems Systems not reviewed;Unavailable: Acuity of Condition Respiratory: SOB <Akin Bernard - Last Filed: 09/27/17 17:16> Physical Exam Vital Signs Reviewed: Yes Temperature: Febrile Blood Pressure: Normal Pulse: Regular Respiratory Rate: Normal Appearance: Positive for: Well-Appearing, Non-Toxic, Comfortable Pain Distress: None Mental Status: Positive for: other (Alert) - Systems Exam Head: Present: Atraumatic, Normocephalic Pupils: Present: PERRL Extroacular Muscles: Present: EOMI Conjunctiva: Present: Normal Mouth: Present: Moist Mucous Membranes Respiratory/Chest: Present: Decreased Breath Sounds. No: Respiratory Distress, Accessory Muscle Use Cardiovascular: Present: Regular Rate and Rhythm, Normal S1, S2. No: Murmurs Abdomen: Present: Normal Bowel Sounds. No: Tenderness, Distention, Peritoneal Signs Upper Extremity: Present: Normal Inspection. No: Cyanosis, Edema Lower Extremity: Present: Normal Inspection. No: Edema Neurological: Present: GCS=15, CN II-XII Intact, Speech Normal Skin: Present: Warm, Dry, Normal Color. No: Rashes <Akin Bernard - Last Filed: 09/27/17 17:16> Vital Signs Temp Pulse Resp BP Pulse Ox 09/25/17 19:49 76 18 93/49 L 100 09/25/17 17:55 90 20 99/78 L 100 09/25/17 08:18 98 F 104 H 20 104/57 L 97 09/25/17 07:22 108 H 20 109/62 97 09/25/17 06:25 91 H 96 H 107/68 18 L 09/25/17 05:09 137/66 09/25/17 04:55 20 96 09/25/17 04:14 100.2 F H 104 H 18 137/66 97 Medical Decision Making - Critical Care Critical Care Minutes: 30 minutes <Nilesh Rosas - Last Filed: 09/25/17 17:53> - Lab Interpretations I have reviewed the lab results: Yes - RAD Interpretation Contamination Consultant: ED Physician - EKG Interpretation Interpreted by ED Physician: Yes Type: 12 lead EKG <Akin Bernard - Last Filed: 09/27/17 17:16> ED Course and Treatment: 09/25/17 04:15 Impression: 76 year old female sent from skilled nursing for shortness of breath tonight. Differential Diagnosis included but are not limited to: CHF vs. pneumonia vs. COPD Plan: -- EKG -- CXR -- Labs, VBG, BNP, cardiac enzymes, blood cultures -- Reassess and disposition Progress Notes: 09/25/17 04:34 Reviewed EKG, sinus tachycardia at [address]/T wave changes. 09/25/17 04:45 CXR reviewed, shows CHF and pneumonia 09/25/17 05:[address] Campbell, who is aware and agrees with plan. Accepts pt in to his service. Pt admitted to Telemetry for CHF. (Akin Bernard) - Critical Care Narrative Critical Care (Text): 09/25/17 17:54 Called for pulseless patient, agonal respirations, very pale. Patient was emergently intubated with 7.5mm ETT. CPR started. Patient regained rhythm and pulse. Increasing responsiveness. Vent settings ordered and Portable cxr. (Nilesh Rosas) - Lab Interpretations Microbiology Results: Microbiology Results 09/25/17 04:35 Blood-Venous Blood Culture - Preliminary NO GROWTH AFTER 48 HOURS 09/25/17 04:23 Blood-Venous Blood Culture - Preliminary NO GROWTH AFTER 48 HOURS Lab Results: 09/25/17 04:23 09/25/17 04:23 Lab Results 09/25/17 04:23: Sodium 135, Chloride 99, Potassium 4.1, Carbon Dioxide 30, Anion Gap 11, BUN 14, Creatinine 0.5 L, Est GFR ( Amer) > 60, Est GFR ( Non-Af Amer) > 60, Random Glucose 156 H, Calcium 8.7, Total Bilirubin 0.4, AST 33, ALT 37, Alkaline Phosphatase 48, Lactate Dehydrogenase 695, Total Creatine Kinase 22 L, Troponin I 0.06 D, NT-Pro-B Natriuret Pep 5440 H, Total Protein 6.1, Albumin 3.0, Globulin 3.1, Albumin/Globulin Ratio 1.0 L 09/25/17 04:23: pO2 103 H, VBG pH 7.17 L*, VBG pCO2 97.0 H*, VBG HCO3 35.4 H, VBG Total CO2 38.4 H, VBG O2 Sat (Calc) 99.1 H, VBG Base Excess 3.5 H, VBG Potassium 3.9, Sodium 134.0, Chloride 103.0, Glucose 169 H, Lactate 0.6 L, FiO2 21.0, Venous Blood Potassium 3.9 09/25/17 04:23: PT 11.9, INR 1.04, APTT 31.9 09/25/17 04:23: WBC 10.2, RBC 2.60 L, Hgb 8.7 L D, Hct 26.6 L, MCV 102.3, MCH 33.5, MCHC 32.7, RDW 13.5, Plt Count 285, MPV 9.2, Gran % 92.2 H, Lymph % (Auto ) 3.9 L, Barrow % (Auto) 3.7, Eos % (Auto) 0.0 L, Baso % (Auto) 0.2, Gran # 9.43 H , Lymph # 0.4 L, Barrow # 0.4, Eos # 0.0, Baso # 0.02, Neutrophils % (Manual) 83 H , Band Neutrophils % 9 H, Lymphocytes % (Manual) 5 L, Monocytes % (Manual) 3, Platelet Evaluation Normal - RAD Interpretation Radiology Orders: 09/25/17 04:20 CHEST PORTABLE [RAD] Stat - Medication Orders Current Medication Orders: Acetylcysteine (Acetylcysteine 20%) 4 ml IH [id number] [facility] Last Admin: 09/27/17 13:35 Dose: 4 ml Albuterol Sulfate (Albuterol 0.083% Inhal Lesley (2.5 Mg/3 Ml) Ud) 2.5 mg IH [id number] [facility] Last Admin: 09/27/17 13:35 Dose: 2.5 mg Aspirin (Ecotrin) 81 mg PO DAILY [facility] Last Admin: 09/27/17 09:18 Dose: 81 mg Atorvastatin Calcium (Lipitor) 40 mg PO HS [facility] Last Admin: 09/26/17 22:00 Dose: 40 mg Budesonide (Pulmicort Respules) 0.5 mg IH [id number] [facility] Last Admin: 09/27/17 08:05 Dose: 0.5 mg Furosemide (Lasix) 40 mg IVP DAILY [facility] Last Admin: 09/27/17 09:20 Dose: 40 mg MAR Blood Pressure Document 09/27/17 09:20 AE (Rec: 09/27/17 09:21 AE [id number]) Blood Pressure Blood Pressure (100/60-150/90) 104/56 IVP Administration Document 09/27/17 09:20 AE (Rec: 09/27/17 09:21 AE [id number]) Charges for Administration # of IVP Administrations 1 Gabapentin (Neurontin) 300 mg PO HS ANUJA PRN Reason: Protocol Cefepime HCl (Maxipime 2gm) 2 gm in 100 mls @ 100 mls/hr IVPB Q8 ANUJA PRN Reason: Protocol Stop: 09/30/17 22:01 Last Admin: 09/27/17 15:47 Dose: 100 mls/hr eMAR Start Stop Document 09/27/17 15:47 AE (Rec: 09/27/17 15:47 AE [id number]) Intravenous Solution Start Date 09/27/17 Start Time 15:47 End Date 09/27/17 End time 16:57 Total Infusion Time 70 Heparin Sodium/Sodium Chloride (Heparin 14981 Units/250ml 1/2 Normal Saline) 25 ,000 units in 250 mls @ 8.073 mls/hr IV .Q24H ANUJA; 14 UNITS/KG/HR PRN Reason: Protocol Last Admin: 09/27/17 09:19 Dose: 14 units/kg/hr, 8.073 mls/hr eMAR Start Stop Document 09/27/17 09:19 AE (Rec: 09/27/17 09:19 AE [id number]) Intravenous Solution Start Date 09/27/17 Start Time 09:19 End Date 09/27/17 End time 23:00 Total Infusion Time 821 MAR aPTT Document 09/27/17 09:19 AE (Rec: 09/27/17 09:19 AE [id number]) aPTT aPTT (secs) 84.9 Titration Intervention Document 09/27/17 09:19 AE (Rec: 09/27/17 09:19 AE [id number]) Titration Intake Waste Amount 0 Container Volume 250 Titration Dosing Titration Dose 14 IV Rate 8.073 Intake/Decrease Started Doxycycline Hyclate 100 mg/ (Sodium Chloride) 100 mls @ 100 mls/hr IVPB Q12 ANUJA PRN Reason: Protocol Vancomycin HCl (Vancomycin 1gm) 1 gm in 250 mls @ 167 mls/hr IVPB Q12 ANUJA PRN Reason: Protocol Methylprednisolone (Solu-Medrol) 30 mg IVP Q12 ANUJA Last Admin: 09/27/17 09:21 Dose: 30 mg IVP Administration Document 09/27/17 09:21 AE (Rec: 09/27/17 09:21 AE [id number]) Charges for Administration # of IVP Administrations 1 Morphine Sulfate (Morphine) 1 mg IVP Q4H PRN PRN Reason: Pain, severe (8-10) Pantoprazole Sodium (Protonix Inj) 40 mg IVP DAILY [facility] Last Admin: 09/27/17 09:21 Dose: 40 mg IVP Administration Document 09/27/17 09:21 AE (Rec: 09/27/17 09:21 AE [id number]) Charges for Administration # of IVP Administrations 1 Discontinued Medications Acetylcysteine (Acetylcysteine 20%) 4 ml IH Q6 ANUJA Last Admin: 09/27/17 08:05 Dose: 4 ml Albuterol Sulfate (Albuterol 0.083% Inhal Lesley (2.5 Mg/3 Ml) Ud) 2.5 mg IH Q6 ANUJA Last Admin: 09/27/17 08:05 Dose: 2.5 mg Albuterol/Ipratropium (Duoneb 3 Mg/0.5 Mg (3 Ml) Ud) 3 ml IH Q15M ANUJA Stop: 09/25/17 05:16 Last Admin: 09/25/17 05:08 Dose: 3 ml Alprazolam (Xanax) 0.5 mg PO BID ANUJA PRN Reason: Protocol Last Admin: 09/25/17 17:10 Dose: 0.5 mg Behavioural Document 09/25/17 17:10 RDS (Rec: 09/25/17 17:10 RDS [id number]) Maintenance Maintenance Dose Yes Nonmedicinal Nonmedicinal Interventions Therapeutic Communication Behavior Behavior for Medication: Anxiety Epinephrine Bitartrate (Epinephrine) 1 mg IV STAT STA Stop: 09/25/17 17:59 Last Admin: 09/25/17 17:54 Dose: 1 mg eMAR Start Stop Document 09/25/17 17:54 WIRE RIGGER (Rec: 09/25/17 18:48 WIRE RIGGER [id number]) Intravenous Solution Start Date 09/25/17 Start Time 17:54 Folic Acid (Folic Acid) 1 mg PO DAILY [facility] Last Admin: 09/25/17 12:21 Dose: 1 mg Furosemide (Lasix) 20 mg IVP ONCE ONE Stop: 09/25/17 05:03 Last Admin: 09/25/17 05:09 Dose: 20 mg MAR Blood Pressure Document 09/25/17 05:09 IT (Rec: 09/25/17 05:09 IT [id number]) Blood Pressure Blood Pressure (100/60-150/90) 137/66 IVP Administration Document 09/25/17 05:09 IT (Rec: 09/25/17 05:09 IT [id number]) Charges for Administration # of IVP Administrations 1 Heparin Sodium (Porcine) (Heparin) 4,160 units IVP STAT STA PRN Reason: Protocol Stop: 09/26/17 07:05 Last Admin: 09/26/17 07:27 Dose: 4,160 units IVP Administration Document 09/26/17 07:27 MPD (Rec: 09/26/17 07:27 MPD [id number]) Charges for Administration # of IVP Administrations 1 Vancomycin HCl (Vancomycin 1gm) 1 gm in 250 mls @ 167 mls/hr IVPB STAT STA PRN Reason: Protocol Stop: 09/25/17 07:05 Last Admin: 09/25/17 07:29 Dose: 167 mls/hr eMAR Start Stop Document 09/25/17 07:29 IT (Rec: 09/25/17 07:29 IT [id number]) Intravenous Solution Start Date 09/25/17 Start Time 07:29 Piperacillin Sod/Tazobactam Sod (Zosyn 3.375 In Ns 100ml) 100 mls @ 200 mls/hr IVPB STAT STA PRN Reason: Protocol Stop: 09/25/17 06:05 Last Admin: 09/25/17 05:59 Dose: 200 mls/hr eMAR Start Stop Document 09/25/17 05:59 IT (Rec: 09/25/17 05:59 IT [id number]) Intravenous Solution Start Date 09/25/17 Start Time 05:59 End Date 09/25/17 Sodium Chloride (Sodium Chloride 0.9%) 500 mls @ 999 mls/hr IV .Q31M STA Stop: 09/25/17 18:29 Last Admin: 09/25/17 17:54 Dose: 999 mls/hr eMAR Start Stop Document 09/25/17 17:54 WIRE RIGGER (Rec: 09/25/17 18:49 WIRE RIGGER [id number]) Intravenous Solution Start Date 09/25/17 Start Time 17:54 End Date 09/25/17 End time 18:26 Total Infusion Time 32 Vancomycin HCl (Vancomycin 1gm) 1 gm in 250 mls @ 167 mls/hr IVPB DAILY ANUJA PRN Reason: Protocol Midazolam 100 mg/100ml in NS (Midazolam 100 Mg/100ml In Ns) 100 mg in 100 mls @ 1 mls/hr IV .Q24H PRN; Protocol; 1 MG/HR PRN Reason: Agitation Last Titration: 09/27/17 07:21 Dose: 1 mg/hr, 1 mls/hr Titration Intervention Document 09/27/17 07:21 JBO (Rec: 09/27/17 07:22 JBO [id number]) Titration Intake Titration Intake 24 Cumulative Intake 29 Cumulative Intake (Rx) 29 Waste Amount 0 Container Volume 71 Titration Dosing Titration Dose 1 IV Rate 1 Intake/Decrease Decreased Cumulative Dose 29 Azithromycin (Zithromax 500mg In Ns) 500 mg in 250 mls @ 167 mls/hr IVPB DAILY ANUJA PRN Reason: Protocol Last Admin: 09/27/17 09:22 Dose: 167 mls/hr eMAR Start Stop Document 09/27/17 09:22 AE (Rec: 09/27/17 09:23 AE [id number]) Intravenous Solution Start Date 09/27/17 Start Time 11:00 End Date 09/27/17 End time 12:30 Total Infusion Time 90 Sodium Chloride (Sodium Chloride 0.9%) 1,000 mls @ 100 mls/hr IV .Q10H ANUJA Last Admin: 09/27/17 02:00 Dose: 100 mls/hr eMAR Start Stop Document 09/27/17 02:00 JBO (Rec: 09/27/17 02:45 JBO [id number]) Intravenous Solution Start Date 09/27/17 Start Time 02:00 End Date 09/27/17 End time 12:00 Total Infusion Time 600 Heparin Sodium/Sodium Chloride (Heparin 72710 Units/250ml 1/2 Normal Saline) 25 ,000 units in 250 mls @ 9.36 mls/hr IV .Q24H PRN; Protocol; 18 UNITS/KG/HR PRN Reason: ADJUST RATE PER PROTOCOL Last Titration: 09/27/17 02:00 Dose: 16 units/kg/hr, 8.32 mls/hr Titration Intervention Document 09/27/17 02:00 JBO (Rec: 09/27/17 07:21 JBO [id number]) Titration Intake Titration Intake 0 Cumulative Intake 30 Cumulative Intake (Rx) 280 Waste Amount 0 Container Volume 220 Titration Dosing Titration Dose 16 IV Rate 8.32 Intake/Decrease Resumed/Decreased Cumulative Dose 25288 Sodium Chloride (Sodium Chloride 0.9%) 500 mls @ 999 mls/hr IV .Q31M STA Stop: 09/25/17 21:58 Last Admin: 09/25/17 21:15 Dose: 999 mls/hr eMAR Start Stop Document 09/25/17 21:15 MPD (Rec: 09/25/17 22:06 MPD [id number]) Intravenous Solution Start Date 09/25/17 Start Time 21:15 End Date 09/25/17 End time 21:45 Total Infusion Time 30 Vancomycin HCl (Vancomycin 1gm) 1 gm in 250 mls @ 167 mls/hr IVPB BID ANUJA PRN Reason: Protocol Last Admin: 09/27/17 09:22 Dose: 167 mls/hr eMAR Start Stop Document 09/27/17 09:22 AE (Rec: 09/27/17 09:22 AE [id number]) Intravenous Solution Start Date 09/27/17 Start Time 09:22 End Date 09/27/17 End time 11:00 Total Infusion Time 98 Potassium Chloride (Potassium Chloride 10 Meq/100 Ml) 10 meq in 100 mls @ 50 mls/hr IVPB ONCE ONE Stop: 09/26/17 10:48 Last Admin: 09/26/17 09:58 Dose: 50 mls/hr eMAR Start Stop Document 09/26/17 09:58 ID (Rec: 09/26/17 09:59 ID [id number]) Intravenous Solution Start Date 09/26/17 Start Time 09:59 End Date 09/26/17 Heparin Sodium/Sodium Chloride (Heparin 86162 Units/250ml 1/2 Normal Saline) 25 ,000 units in 250 mls @ 7.28 mls/hr IV .Q24H PRN; Protocol; 14 UNITS/KG/HR PRN Reason: ADJUST RATE PER PROTOCOL Last Admin: 09/27/17 08:47 Dose: 14 units/kg/hr, 7.28 mls/hr eMAR Start Stop Document 09/27/17 08:47 AE (Rec: 09/27/17 08:48 AE [id number]) Intravenous Solution Start Date 09/27/17 Start Time 08:48 End Date 09/27/17 End time 23:00 Total Infusion Time 852 MAR aPTT Document 09/27/17 08:47 AE (Rec: 09/27/17 08:48 AE [id number]) aPTT aPTT (secs) 84.9 Titration Intervention Document 09/27/17 08:47 AE (Rec: 09/27/17 08:48 AE [id number]) Titration Intake Waste Amount 0 Container Volume 250 Titration Dosing Titration Dose 14 IV Rate 7.28 Intake/Decrease Started Potassium Chloride (Potassium Chloride 10 Meq/100 Ml) 10 meq in 100 mls @ 50 mls/hr IVPB ONCE ONE Stop: 09/27/17 12:46 Last Admin: 09/27/17 11:12 Dose: 50 mls/hr eMAR Start Stop Document 09/27/17 11:12 AE (Rec: 09/27/17 11:12 AE [id number]) Intravenous Solution Start Date 09/27/17 Start Time 11:12 End Date 09/27/17 End time 12:12 Total Infusion Time 60 Oxycodone/Acetaminophen (Percocet 5/325 Mg Tab) 1 tab PO Q4H PRN PRN Reason: Pain, moderate (4-7) Stop: 09/28/17 14:20 Oxycodone/Acetaminophen (Percocet 5/325 Mg Tab) 1 tab PO Q6H PRN PRN Reason: Pain, moderate (4-7) Stop: 09/28/17 14:20 Last Admin: 09/25/17 14:43 Dose: 1 tab [facility] Pain Assessment Document 09/25/17 14:43 RDS (Rec: 09/25/17 14:43 RDS [facility] [place] [facility] Pain Reassessment Is this a pain reassessment? No Presence of Pain Presence of Pain Yes Pain Scale Used Pain Scale Used Numeric Location Pain Location Body Site Generalized Description Intensity of Pain at present 9 Re-Assess: [facility] Pain Assessment Document 09/25/17 15:43 RDS (Rec: 09/25/17 16:18 RDS [facility] [place] [facility] Pain Reassessment Is this a pain reassessment? Yes Sleep Is patient sleeping during reassessment? No Presence of Pain Presence of Pain No Potassium Chloride (Potassium Chloride Oral Soln) 40 meq PO ONCE ONE Stop: 09/27/17 07:53 Last Admin: 09/27/17 08:08 Dose: 40 meq <Nilesh Rosas - Last Filed: 09/25/17 17:53> - Scribe Statement The provider has reviewed the documentation as recorded by the Scribe <Akin Bernard - Last Filed: 09/27/17 17:16> - Scribe Statement Sana Arthur All medical record entries made by the Scribe were at my direction and personally dictated by me. I have reviewed the chart and agree that the record accurately reflects my personal performance of the history, physical exam, medical decision making, and the department course for this patient. I have also personally directed, reviewed, and agree with the discharge instructions and disposition. (Akin Benrard) Disposition/Present on Arrival <Nilesh Rosas - Last Filed: 09/25/17 17:53> - Present on Arrival Any Indicators Present on Arrival: No History of DVT/PE: No History of Uncontrolled Diabetes: No Urinary Catheter: No History Surgical Site Infection Following: None - Disposition Have Diagnosis and Disposition been Completed?: Yes Disposition Time: 06:00 <Akin Bernard - Last Filed: 09/27/17 17:16> - Disposition Diagnosis: Pneumonia, CHF (congestive heart failure) Disposition: HOSPITALIZED Condition: GOOD
[2017-09-25 04:36] LABS: VENOUS BLOOD GAS BASE EXCESS 3.5 mmol/L (0.0-2.0); VENOUS BLOOD GAS PO2 103 mm/Hg (30-55); VENOUS BLOOD PH 7.17 (7.32-7.43)
[2017-09-25 04:48] LABS: ALT/SGPT 37 U/L (7-56); AST/SGOT 33 U/L (14-36); BLOOD UREA NITROGEN 14 mg/dL (7-21); CALCIUM 8.7 mg/dL (8.4-10.5); GFR AFRICAN-AMERICAN > 60; GFR NON-AFRICAN AMERICAN > 60; INR 1.04 (0.93-1.08); PARTIAL THROMBOPLASTIN TIME 31.9 Seconds (25.1-36.5); PROTHROMBIN TIME 11.9 SECONDS (9.4-12.5)
[2017-09-25] MEDS: Albuterol-Ipratrop 3 mg / 0.5 (3 ml) UD IH SCH ×3 (04:48→05:08)
[2017-09-25 04:58] LABS: B-TYPE NATRIURETIC PEPTIDE 5440 pg/mL (0-450); TROPONIN I 0.06 ng/mL
[2017-09-25 05:10] LABS: BASO # 0.02 K/mm3 (0.0-2.0); BASO % 0.2 % (0.0-3.0); GRAN # 9.43 (1.4-6.5); GRAN % 92.2 % (50.0-68.0); LYMPH # 0.4 (1.2-3.4); LYMPH % 3.9 % (22.0-35.0); MEAN CELL VOLUME 102.3 fl (80.0-105.0); MEAN CORPUSCULAR HEMOGLOBIN 33.5 pg (25.0-35.0); MEAN CORPUSCULAR HGB CONC 32.7 g/dl (31.0-37.0); MEAN PLATELET VOLUME 9.2 fl (7.0-11.0); MONO # 0.4 (0.1-0.6); MONO % 3.7 % (1.0-6.0); PLATELET COUNT 285 10^3/uL (120.0-450.0); RED CELL DISTRIBUTION WIDTH 13.5 % (11.5-14.5); WHITE BLOOD COUNT 10.2 10^3/ul (4.5-11.0)
[2017-09-25 05:20] LABS: HEMOGLOBIN 8.7 g/dL (12.0-16.0)
[2017-09-25] MEDS ORDERED: Vancomycin 1gm in NS 250ml 1 GM/250 ML BAG IVPB STA (05:36)
[2017-09-25] MEDS ORDERED: Piperacillin/Tazobact 3.375 gm 100 ML IVPB STA (05:36)
[2017-09-25 06:31] LABS: BAND 9 % (0-2); LYMPHOCYTE 5 % (22.0-35.0); MONOCYTE 3 % (1.0-6.0); NEUTROPHIL 83 % (50.0-70.0); PLATELET ESTIMATE NORMAL (NORMAL)
--- NOTE | 2017-09-25 09:41 | RAD ---
HISTORY: sob COMPARISON: 09/08/2017 FINDINGS: LUNGS: The patient is rotated to the left. There are new bilateral infiltrates and effusions. Findings could be due to CHF or bilateral pneumonia PLEURA: No significant pleural effusion identified, no pneumothorax apparent. CARDIOVASCULAR: Normal. OSSEOUS STRUCTURES: No significant abnormalities. VISUALIZED UPPER ABDOMEN: Normal. OTHER FINDINGS: None. IMPRESSION: The patient is rotated to the left. There are new bilateral infiltrates and effusions. Findings could be due to CHF or bilateral pneumonia
[2017-09-25 12:34] LABS: ARTERIAL BLOOD GAS HCO3 35.3 mmol/L (21-28); ARTERIAL BLOOD GAS HEMOGLOBIN 8.3 g/dL (11.7-17.4); ARTERIAL BLOOD GAS O2 CAPACITY 11.5 mL/dl (16-24); ARTERIAL BLOOD GAS O2 CONTENT 11.5 ML/dl (15-23); ARTERIAL BLOOD GAS O2 SAT 99.7 % (95-98); ARTERIAL BLOOD GAS PCO2 64 mm/Hg (35-45); ARTERIAL BLOOD GAS PH 7.35 (7.35-7.45); ARTERIAL BLOOD GAS TCO2 37.3 mmol.L (22-28)
[2017-09-25] MEDS: Acetylcysteine 20% Inhal Soln (4ml) IH SCH ×2 (14:13→17:10)
[2017-09-25] MEDS: Albuterol 0.083% Inhal Sol (2.5 mg/3 mL) UD IH SCH ×2 (14:13→17:10)
[2017-09-25] MEDS ORDERED: Oxycodone/Acetaminophen 5/325 mg Tab PO PRN ×2 (14:19→14:21)
--- NOTE | 2017-09-25 16:45 | CARD ---
APPROVED REPORT EKG Measurement Heart [id number] <Conclusion> Sinus tachycardia with premature supraventricular complexes Otherwise normal ECG
[2017-09-25] MEDS ORDERED: Sodium Chloride 0.9% 500 ML IV STA ×2 (17:59→21:28)
[2017-09-25] MEDS ORDERED: Midazolam 100 mg/100ml in NS 100 MG/100 ML SOL IV PRN (18:42)
--- NOTE | 2017-09-25 18:54 | CP.PCM.CON ---
History of Present Illness - History of Present Illness History of Present Illness: CRITICAL CARE CONSULT NOTE HPI Patient is 76yo female, with PMHx of chronic atrial fibrillation, COPD, hypertension, hyperlipidemia, compression fracture of L1/L2, presented from [place] earlier this morning for SOB. Initially admitted to telemetry for presumed CHF and PNA. This evening patient became unresponsive, code blue was called, rhythm was asystole as per ER staff, 90second of CPR done, 1mg Epi given, patient then had ROSC. Currently the patient is awake, alert, intubated, following commands, in NAD. History is extremely limited. PMHx as above PSHx as above Allergies NKDA Meds as per EMR ROS as above FHx NC Review of Systems - Review of Systems Review of Systems: as per HPI Past Patient History - Infectious Disease Hx of Infectious Diseases: None - Tetanus Immunizations Tetanus Immunization: Unknown - Past Medical History & Family History Past Medical History?: Yes - Past Social History Smoking Status: Heavy Smoker > 10 Cigarettes Daily - CARDIAC Hx Pacemaker: No - PULMONARY Hx Chronic Obstructive Pulmonary Disease (COPD): Yes - NEUROLOGICAL Hx Paralysis: No - HEENT Hx Cataracts: Yes (b/l cataracts no sx) Other/Comment: sx for detached retina right eye 2 days ago 2nd sx same eye uses silicone oil, first sx used gas bubble which did not work, visually impaired right eye sees shadows and diminished peripheral vision - RENAL Hx Chronic Kidney Disease: No - ENDOCRINE/METABOLIC Hx Endocrine Disorders: No - HEMATOLOGICAL/ONCOLOGICAL Hx Blood Transfusions: Yes Hx Blood Transfusion Reaction: No - INTEGUMENTARY Hx Dermatological Problems: No Other/Comment: rle varicone veins, dry skin to feet, buttocks reddened, multiple brown spots on upper back - MUSCULOSKELETAL/RHEUMATOLOGICAL Hx Musculoskeletal Disorders: Yes - GASTROINTESTINAL Hx Gastrointestinal Disorders: No - GENITOURINARY/GYNECOLOGICAL Hx Reproductive Disorders: No - PSYCHIATRIC Hx Emotional Abuse: No Hx Physical Abuse: No Hx Substance Use: No - SURGICAL HISTORY Hx Musculoskeletal Surgery: Yes (left hip replacement) Other/Comment: kyphoplasty - ANESTHESIA Hx Anesthesia Reactions: No Hx Malignant Hyperthermia: No Meds Allergies/Adverse Reactions: Allergies Allergy/AdvReac Type Severity Reaction Status Date / Time No Known Allergies Allergy Verified 09/25/17 04:14 - Medications Medications: Current Medications Acetylcysteine (Acetylcysteine 20%) 4 ml IH Q6 [facility] Last Admin: 09/25/17 17:10 Dose: 4 ml Albuterol Sulfate (Albuterol 0.083% Inhal Lesley (2.5 Mg/3 Ml) Ud) 2.5 mg IH Q6 [facility] Last Admin: 09/25/17 17:10 Dose: 2.5 mg Alprazolam (Xanax) 0.5 mg PO BID [facility] PRN Reason: Protocol Last Admin: 09/25/17 17:10 Dose: 0.5 mg Aspirin (Ecotrin) 81 mg PO DAILY [facility] Last Admin: 09/25/17 12:21 Dose: 81 mg Atorvastatin Calcium (Lipitor) 40 mg PO HS [facility] Budesonide (Pulmicort Respules) 0.5 mg IH [id number] [facility] Docusate Sodium (Colace) 200 mg PO HS [facility] Folic Acid (Folic Acid) 1 mg PO DAILY [facility] Last Admin: 09/25/17 12:21 Dose: 1 mg Furosemide (Lasix) 40 mg IVP DAILY [facility] Cefepime HCl (Maxipime 1gm) 1 gm in 100 mls @ 100 mls/hr IVPB Q12 [facility] PRN Reason: Protocol Vancomycin HCl (Vancomycin 1gm) 1 gm in 250 mls @ 167 mls/hr IVPB DAILY [facility] PRN Reason: Protocol Midazolam 100 mg/100ml in NS (Midazolam 100 Mg/100ml In Ns) 100 mg in 100 mls @ 1 mls/hr IV .Q24H PRN; Protocol; 1 MG/HR PRN Reason: Agitation Azithromycin (Zithromax 500mg In Ns) 500 mg in 250 mls @ 167 mls/hr IVPB DAILY [facility] PRN Reason: Protocol Oxycodone/Acetaminophen (Percocet 5/325 Mg Tab) 1 tab PO Q6H PRN PRN Reason: Pain, moderate (4-7) Stop: 09/28/17 14:20 Last Admin: 09/25/17 14:43 Dose: 1 tab Pantoprazole Sodium (Protonix Inj) 40 mg IVP DAILY [facility] Physical Exam - Constitutional Appears: Non-toxic, No Acute Distress, Older Than Stated Age, Cachectic - Eye Exam Eye Exam: Normal appearance - ENT Exam ENT Exam: Mucous Membranes Moist - Respiratory Exam Respiratory Exam: NORMAL BREATHING PATTERN Additional comments: decreased breath sounds bilaterally - Cardiovascular Exam Cardiovascular Exam: REGULAR RHYTHM, +S1, +S2 - Extremities Exam Extremities exam: Positive for: normal inspection - Neurological Exam Neurological exam: Alert - Skin Skin Exam: Normal Color, Warm Results - Vital Signs Recent Vital Signs: Last Vital Signs Temp 98 F 09/25/17 08:18 Pulse 90 09/25/17 17:55 Resp 20 09/25/17 17:55 BP 99/78 L 09/25/17 17:55 Pulse Ox 100 09/25/17 17:55 - Labs Result Diagrams: 09/25/17 04:23 09/25/17 04:23 Labs: Laboratory Results - last 24 hr 09/25/17 09/25/17 05:50 12:31 pCO2 64 H pO2 103.0 H HCO3 35.3 H ABG pH 7.35 ABG Total CO2 37.3 H ABG O2 Saturation 99.7 H ABG O2 Content 11.5 L ABG Base Excess 8.4 H ABG Hemoglobin 8.3 L ABG Carboxyhemoglobin 2.4 H POC ABG HHb (Measured) 0.3 ABG Methemoglobin 0.8 ABG O2 Capacity 11.5 L Hgb O2 Saturation 96.5 FiO2 36.0 Blood Type A POSITIVE Antibody Screen Negative Crossmatch See Detail BBK History Checked Patient has bt Assessment & Plan - Assessment and Plan (Free Text) Assessment: 76yo female admitted s/p cardiac arrest Cardiac Arrest CHF PNA Severe Sepsis COPD Afib - currently afebrile, HD stable MAP 65, awake, alert, follows simple commands - labs pending, EKG pending - ABG pending - CT head pending - would likely not benefit from hypothermic protocol, as patient is awake, alert , and had asystole rhythm Recommend: - cont with ventilatory support, low tidal vol ventilation, obtain ABG - broad spectrum antibiotics, Vanco, Cefepime, Azithro - check Procal, Urine Lg, Strep - sputum culture - ID consult - Cardio consult - Obtain EKG, troponin - repeat CBC, CMP - Obtain CT head - Duonebs PRN - Sedation Versed - ECHO - FS control - GI ppx - DVT ppx - notify PMD - Admit to MICU Critically ill, remains at high risk for morbidity and mortality critical care time 45 minutes
--- NOTE | 2017-09-25 19:27 | CARD ---
APPROVED REPORT EKG Measurement Heart [id number] <Conclusion> Normal sinus rhythm Possible Anterior infarct, age undetermined Abnormal ECG
[2017-09-25 19:33] LABS: MEAN CELL VOLUME 104.1 fl (80.0-105.0); MEAN CORPUSCULAR HEMOGLOBIN 33.3 pg (25.0-35.0); MEAN PLATELET VOLUME 9.1 fl (7.0-11.0); RBC 2.19 10^6/uL (3.5-6.1); RED CELL DISTRIBUTION WIDTH 13.8 % (11.5-14.5); WHITE BLOOD COUNT 12.4 10^3/ul (4.5-11.0)
[2017-09-25 19:34] LABS: URINE BILIRUBIN NEGATIVE (NEGATIVE); URINE BLOOD SMALL (NEGATIVE); URINE GLUCOSE (UA) NEGATIVE (NEGATIVE); URINE LEUKOCYTE ESTERASE NEGATIVE Leu/uL (NEGATIVE); URINE NITRATE NEGATIVE (NEGATIVE); URINE PROTEIN 30 mg/dL (<30 mg/dL); URINE UROBILINOGEN 0.2 E.U./dL (<1 E.U./dL)
[2017-09-25 19:39] LABS: URINE APPEARANCE CLEAR (CLEAR); URINE COLOR LIGHT YELLOW (YELLOW)
[2017-09-25 19:51] LABS: HEMOGLOBIN 7.3 g/dL (12.0-16.0)
[2017-09-25 20:02] LABS: ALB/GLOB RATIO 0.9 (1.1-1.8); ALBUMIN 2.6 g/dL (3.0-4.8); ALT/SGPT 40 U/L (7-56); AST/SGOT 48 U/L (14-36); BLOOD UREA NITROGEN 13 mg/dL (7-21); CALCIUM 8.1 mg/dL (8.4-10.5); GFR AFRICAN-AMERICAN > 60; GFR NON-AFRICAN AMERICAN > 60; TROPONIN I 0.14 ng/mL
[2017-09-25] MEDS: Sodium Chloride 0.9% 1,000 ML IV SCH (20:28)
[2017-09-25] MEDS: Budesonide 0.5 mg/2 ml Inhal Susp UD IH SCH (20:30)
[2017-09-25 20:39] LABS: URINE BACTERIA MOD (NEG); URINE RBC 0 - 2 /hpf (0-2); URINE WBC 0 - 2 /hpf (0-6)
[2017-09-25] MEDS: Heparin25000 units/250ml 1/2NS 25,000 UNITS/250 ML BAG IV PRN (22:00)
[2017-09-25] MEDS ORDERED: Cefepime 1gm in NS 100ml 1 GM/100 ML BAG IVPB SCH (22:00)
[2017-09-25] MEDS: Cefepime IV 2 gm in NS 2 GM/100 ML BAG IVPB SCH (22:30)
[2017-09-25 23:06] LABS: ARTERIAL BLOOD GAS HCO3 28.2 mmol/L (21-28); ARTERIAL BLOOD GAS O2 SAT 100.2 % (95-98); ARTERIAL BLOOD GAS PCO2 51 mm/Hg (35-45); ARTERIAL BLOOD GAS PH 7.35 (7.35-7.45); ARTERIAL BLOOD GAS TCO2 29.8 mmol.L (22-28)
--- NOTE | 2017-09-26 00:27 | HP ---
HISTORY OF PRESENT ILLNESS: The patient is a 76-year-old known to me from previous admission, who was sent from [facility] because of spiking fever, cough, and congestion. She is also having shortness of breath. According to daughter who was at bedside, the patient has been increasingly lethargic, short of breath, and fever in the long-term. PAST MEDICAL HISTORY: Significant for; 1. Recent hospitalization for cervical spine diskectomy . 2. Chronic AFib. 3. COPD. 4. Hypertension. 5. Hyperlipidemia. 6. History of compression fracture of L1 and L2. 7. Generalized osteoarthritis. 8. History of congestive heart failure. 9. Chronic anemia. ALLERGIES: NOT ALLERGIC TO ANY MEDICATIONS. SOCIAL HISTORY: She is single and lives with her daughter. She usually heavy smoker and history of smoking from more than 50 years. MEDICATIONS AT HOME: She is on Symbicort, atorvastatin 40 mg daily, aspirin 81 mg daily, folic acid 1 mg daily, ferrous sulfate 300 daily, Percocet 1 tablet daily, thiamine 100 mg daily, Colace 200 daily, alprazolam 0.5 q. 8 h., and Coumadin 5 mg daily. REVIEW OF SYSTEMS: Generalized weakness, difficulty walking and shortness of breath. PHYSICAL EXAMINATION: GENERAL: She is lethargic, but response to verbal commands, shortness of breath. VITAL SIGNS: She is afebrile, pulse 91, respirations 18, and blood pressure 107/68. LUNGS: Bilaterally diffusely decreased breath sounds and soft crackles at bases. HEART: S1 and S2, audible, irregular. ABDOMEN: Soft, nontender. No rebound. No guarding. NEUROLOGIC: She is lethargic, but open eye on verbal commands. LABORATORY DATA: WBC 10.2, hemoglobin 8.7, hematocrit 26, platelets of 285. Chemistries; sodium 135, potassium 4.1, chloride 99, CO2 of 30, BUN 14, creatinine 0.5, blood sugar of 156. BNP 5450. X-ray of chest shows bilateral infiltrate and effusion consistent with bilateral infiltrate and congestive heart failure. EKG sinus tachycardia with premature supraventricular complexes. I saw the patient earlier in the ER; however, later on I got a call, the patient became unresponsive, pulseless, short of breath. Ej gonsalez was called. The patient was intubated and being transferred to ICU. ASSESSMENT: 1. Bilateral pneumonia. 2. Recent cervical diskectomy. 3. Chronic obstructive pulmonary disease. 4. Hypertension. 5. History of atrial fibrillation, currently has sinus tachycardia. PLAN: The patient will be transferred to ICU. She will be on vent support. We will start on her Zithromax. She is on vancomycin and cefepime. We will monitor her blood work. Continue nebulizer treatment. Cardiology consult by Dr. Rich, ID consult by Dr. Dawn, and pulmonary consult by Dr. Keys has been requested. We will followup this patient in a.m. Hellen Shipman MD
[2017-09-26 02:19] VITALS: BMI 19.5
[2017-09-26] MEDS: Acetylcysteine 20% Inhal Soln (4ml) IH SCH ×4 (03:20→19:34)
[2017-09-26] MEDS: Albuterol 0.083% Inhal Sol (2.5 mg/3 mL) UD IH SCH ×4 (03:20→19:35)
[2017-09-26] MEDS: Cefepime IV 2 gm in NS 2 GM/100 ML BAG IVPB SCH ×3 (06:11→22:15)
[2017-09-26 07:16] LABS: ARTERIAL BLOOD GAS HCO3 26.1 mmol/L (21-28); ARTERIAL BLOOD GAS HEMOGLOBIN 8.4 g/dL (11.7-17.4); ARTERIAL BLOOD GAS O2 CAPACITY 11.5 mL/dl (16-24); ARTERIAL BLOOD GAS O2 CONTENT 11.1 ML/dl (15-23); ARTERIAL BLOOD GAS O2 SAT 96.8 % (95-98); ARTERIAL BLOOD GAS PCO2 53 mm/Hg (35-45); ARTERIAL BLOOD GAS TCO2 27.7 mmol.L (22-28)
[2017-09-26 07:35] LABS: BASO # 0.01 K/mm3 (0.0-2.0); BASO % 0.1 % (0.0-3.0); GRAN # 8.29 (1.4-6.5); GRAN % 89.9 % (50.0-68.0); HEMOGLOBIN 9.5 g/dL (12.0-16.0); LYMPH # 0.6 (1.2-3.4); LYMPH % 6.2 % (22.0-35.0); MEAN CELL VOLUME 97.4 fl (80.0-105.0); MEAN CORPUSCULAR HEMOGLOBIN 31.5 pg (25.0-35.0); MEAN CORPUSCULAR HGB CONC 32.3 g/dl (31.0-37.0); MEAN PLATELET VOLUME 9.6 fl (7.0-11.0); MONO # 0.4 (0.1-0.6); MONO % 3.8 % (1.0-6.0); RBC 3.02 10^6/uL (3.5-6.1); RED CELL DISTRIBUTION WIDTH 16.7 % (11.5-14.5); WHITE BLOOD COUNT 9.2 10^3/ul (4.5-11.0)
[2017-09-26 07:40] LABS: INR 1.07 (0.93-1.08); PROTHROMBIN TIME 12.3 SECONDS (9.4-12.5)
[2017-09-26 07:41] LABS: PARTIAL THROMBOPLASTIN TIME 79.2 Seconds (25.1-36.5)
[2017-09-26 07:51] LABS: ALBUMIN 2.8 g/dL (3.0-4.8); ALT/SGPT 40 U/L (7-56); AST/SGOT 47 U/L (14-36); BLOOD UREA NITROGEN 14 mg/dL (7-21); CALCIUM 8.2 mg/dL (8.4-10.5); GFR AFRICAN-AMERICAN > 60; GFR NON-AFRICAN AMERICAN > 60
[2017-09-26 08:08] LABS: TROPONIN I 0.12 ng/mL
[2017-09-26] MEDS: Budesonide 0.5 mg/2 ml Inhal Susp UD IH SCH ×2 (08:41→19:35)
--- NOTE | 2017-09-26 08:55 | CT ---
PROCEDURE: CT HEAD WITHOUT CONTRAST. HISTORY: s/p cardiac arrest COMPARISON: None available. TECHNIQUE: Axial computed tomography images were obtained through the head/brain without intravenous contrast. Radiation dose: Total exam DLP = 1577.32 mGy-cm. This CT exam was performed using one or more of the following dose reduction techniques: Automated exposure control, adjustment of the mA and/or kV according to patient size, and/or use of iterative reconstruction technique. FINDINGS: HEMORRHAGE: No intracranial hemorrhage. BRAIN: No mass effect or edema. Mild diffuse atrophy. Mild to moderate periventricular white matter lucency consistent with chronic microvascular ischemic change. No evidence of acute infarct. VENTRICLES: Unremarkable. No hydrocephalus. CALVARIUM: Unremarkable. PARANASAL SINUSES: Chronic ethmoid sinusitis. MASTOID AIR CELLS: Unremarkable as visualized. No inflammatory changes. OTHER FINDINGS: Prosthetic right globe IMPRESSION: No evidence of acute infarct. No intracranial mass or hemorrhage. Age related involutional change. Chronic ethmoid sinusitis. Preliminary interpretation of this examination was reported by [facility] at 9:44 p.m. on 09/25/2017. There is concurrence of this report with the preliminary interpretation.
--- NOTE | 2017-09-26 09:27 | RAD ---
HISTORY: ETT COMPARISON: 09/25/2017 FINDINGS: LUNGS: Ill-defined opacity right upper steve thorax and right base. Possible pneumonia. PLEURA: Small bilateral pleural effusion. No pneumothorax. CARDIOVASCULAR: Normal heart size. No congestive change. Endotracheal tube appropriately positioned. OSSEOUS STRUCTURES: Deformity of right humeral head with coarse chronic calcification medial to humerus head, uncertain significance. VISUALIZED UPPER ABDOMEN: Normal. OTHER FINDINGS: None. IMPRESSION: Right upper and lower lobe opacity, possible pneumonia. Small bilateral pleural effusion.
--- NOTE | 2017-09-26 09:40 | RAD ---
HISTORY: intubation COMPARISON: 09/25/2017 at 4:34 a.m. FINDINGS: LUNGS: Extensive right-sided pulmonary opacity. No abnormal left-sided opacity. PLEURA: Small bilateral pleural effusion. No pneumothorax. CARDIOVASCULAR: ET tube appropriately positioned 3.0 cm above tracheal ryan. OSSEOUS STRUCTURES: No significant abnormalities. VISUALIZED UPPER ABDOMEN: Normal. OTHER FINDINGS: None. IMPRESSION: Extensive right-sided pulmonary opacity. Small bilateral pleural effusion. ET tube appropriately positioned.
[2017-09-26] MEDS: MethylPREDNISolone 40 mg Vial IVP SCH ×2 (09:59→21:42)
[2017-09-26] MEDS: Vancomycin 1gm in NS 250ml 1 GM/250 ML BAG IVPB SCH ×2 (10:00→19:00)
[2017-09-26] MEDS ORDERED: Vancomycin 1gm in NS 250ml 1 GM/250 ML BAG IVPB SCH (10:00)
--- NOTE | 2017-09-26 10:37 | CP.PCM.PN ---
Subjective - Date & Time of Evaluation Date of Evaluation: 09/26/17 Time of Evaluation: 07:30 - Subjective Subjective: Pt seen and examined, remains intubated, off sedation, follows simple commands. Objective - Vital Signs/Intake and Output Vital Signs (last 24 hours): Temp Pulse Resp BP Pulse Ox 98.9 F 90 23 108/49 L 93 L 09/26/17 06:00 09/26/17 06:00 09/26/17 06:00 09/26/17 09:58 09/26/17 06:00 Intake and Output: 09/26/17 09/26/17 06:59 18:59 Intake Total 781 Balance 781 - Medications Medications: Current Medications Acetylcysteine (Acetylcysteine 20%) 4 ml IH Q6 [facility] Last Admin: 09/26/17 08:40 Dose: 4 ml Albuterol Sulfate (Albuterol 0.083% Inhal Lesley (2.5 Mg/3 Ml) Ud) 2.5 mg IH Q6 [facility] Last Admin: 09/26/17 08:41 Dose: 2.5 mg Aspirin (Ecotrin) 81 mg PO DAILY [facility] Last Admin: 09/26/17 10:01 Dose: Not Given Atorvastatin Calcium (Lipitor) 40 mg PO HS [facility] Last Admin: 09/25/17 22:02 Dose: Not Given Budesonide (Pulmicort Respules) 0.5 mg IH [id number] [facility] Last Admin: 09/26/17 08:41 Dose: 0.5 mg Furosemide (Lasix) 40 mg IVP DAILY [facility] Last Admin: 09/26/17 09:58 Dose: 40 mg Midazolam 100 mg/100ml in NS (Midazolam 100 Mg/100ml In Ns) 100 mg in 100 mls @ 1 mls/hr IV .Q24H PRN; Protocol; 1 MG/HR PRN Reason: Agitation Azithromycin (Zithromax 500mg In Ns) 500 mg in 250 mls @ 167 mls/hr IVPB DAILY [facility] PRN Reason: Protocol Sodium Chloride (Sodium Chloride 0.9%) 1,000 mls @ 100 mls/hr IV .Q10H [facility] Last Admin: 09/25/17 20:28 Dose: 100 mls/hr Heparin Sodium/Sodium Chloride (Heparin 90979 Units/250ml 1/2 Normal Saline) 25 ,000 units in 250 mls @ 9.36 mls/hr IV .Q24H PRN; Protocol; 18 UNITS/KG/HR PRN Reason: ADJUST RATE PER PROTOCOL Last Titration: 09/26/17 06:57 Dose: 22 units/kg/hr, 11.44 mls/hr Vancomycin HCl (Vancomycin 1gm) 1 gm in 250 mls @ 167 mls/hr IVPB BID [facility] PRN Reason: Protocol Last Admin: 09/26/17 10:00 Dose: 167 mls/hr Cefepime HCl (Maxipime 2gm) 2 gm in 100 mls @ 100 mls/hr IVPB Q8 [facility] PRN Reason: Protocol Stop: 09/30/17 22:01 Last Admin: 09/26/17 06:11 Dose: 100 mls/hr Potassium Chloride (Potassium Chloride 10 Meq/100 Ml) 10 meq in 100 mls @ 50 mls/hr IVPB ONCE ONE Stop: 09/26/17 10:48 Last Admin: 09/26/17 09:58 Dose: 50 mls/hr Methylprednisolone (Solu-Medrol) 30 mg IVP Q12 [facility] Last Admin: 09/26/17 09:59 Dose: 30 mg Pantoprazole Sodium (Protonix Inj) 40 mg IVP DAILY [facility] Last Admin: 09/26/17 09:58 Dose: 40 mg Warfarin Sodium (Coumadin) 6 mg PO DAILY [facility] PRN Reason: Protocol - Labs Labs: 09/26/17 06:00 09/26/17 06:00 PT 12.3 SECONDS (9.4-12.5) 09/26/17 06:00 INR 1.07 (0.93-1.08) 09/26/17 06:00 APTT 79.2 Seconds (25.1-36.5) H 09/26/17 06:00 - Constitutional Appears: Non-toxic, Confused, Cachectic - Eye Exam Eye Exam: Normal appearance - ENT Exam ENT Exam: Mucous Membranes Moist - Respiratory Exam Respiratory Exam: Clear to Ausculation Bilateral, NORMAL BREATHING PATTERN - Cardiovascular Exam Cardiovascular Exam: Irregular Rhythm, +S1, +S2 - GI/Abdominal Exam GI & Abdominal Exam: Soft, Normal Bowel Sounds - Extremities Exam Extremities Exam: Normal Inspection - Neurological Exam Neurological Exam: Alert, Awake Assessment and Plan - Assessment and Plan (Free Text) Assessment: 76yo female admitted s/p cardiac arrest Cardiac Arrest CHF PNA Severe Sepsis COPD Afib - currently afebrile, HD stable awake, alert, follows simple commands - placed on CPAP trial earlier this morning Pressure Support 10, PEEP 5, failed , started becoming tachypneic, desaturated to 84%, placed back on PRVC - CT head negative Recommend: - cont with ventilatory support, low tidal vol ventilation, daily CPAP trials - antibiotics, Vanco, Cefepime, Azithro - check Procal, Urine Lg, Strep - sputum culture - Lasix 40mg IV daily - heparin drip for Afib, would hold bridging to Coumadin for now - ID consult - Cardio consult - Hema PRN - ECHO - FS control - GI ppx - DVT ppx Critical Care time 40 minutes
--- NOTE | 2017-09-26 11:20 | CON ---
DATE: 09/26/2017 PULMONARY CONSULTATION REASON FOR CONSULTATION: Chronic obstructive pulmonary disease. REFERRING PHYSICIAN: Hellen Shipman MD IDENTIFICATION DATA: History is obtained via extensive discussion with the night nurse (ICU). I also had a lengthy discussion with the daughter yesterday. I have also reviewed the chart at length. The patient is currently intubated. HISTORY OF PRESENT ILLNESS: The patient is a 76-year-old female, with past medical history significant for advanced chronic obstructive pulmonary disease, positive extensive smoking history - still smokes, chronic atrial fibrillation, hypertension, congestive heart failure, recent cervical disk surgery at [facility], right lower lobe lung mass (seen on outpatient CT scan), who presents to [facility] - transferred from [facility] - for increasing shortness of breath, cough, and fevers. The patient was also noted to be congested with minimal sputum production. There is no history of chest pain, coughing up of blood, or chest pain - made worse with deep respirations. The patient did present to [facility] with low grade fevers (100.2). No history of chills or infectious exposure. No history of night sweat, weight loss or appetite change prior to the above events. No history of leg or calf pains. No history of recent travel or trauma. Again, I did discuss the case with the night nurse at length. Apparently, the patient did lose blood pressure and pulse in the Emergency Room. She was successfully resuscitated and intubated. She was then transferred to the medical ICU for additional management. I am thus asked to evaluate on this case for additional management, treatment. REVIEW OF SYSTEMS: No history of nausea, vomiting or diarrhea. No acute urinary symptoms. Rest of the review of systems is negative. ALLERGIES: NO KNOWN ALLERGIES. SOCIAL HISTORY: Positive for extensive tobacco usage - still smokes, no alcohol. FAMILY HISTORY: No inheritable diseases. HOME MEDICATIONS: Include Symbicort Lipitor, Feosol, Percocet, thiamine albuterol sulfate, Colace, Xanax, potassium and warfarin. PHYSICAL EXAMINATION: GENERAL: The patient is currently intubated. She is awake and alert. She appears extremely weak. VITAL SIGNS: Temperature is 98.9, pulse is 90, respirations are 23/16, and blood pressure is 117/47. HEENT: Normocephalic and atraumatic. NECK: No JVD. CARDIOVASCULAR: Systolic ejection murmur at the lower left sternal border. Positive S3 gallop. LUNGS: Decreased breath sounds with crackles at both bases. Minimal bilateral rhonchi. No wheezing. EXTREMITIES: Positive for mild edema. No cyanosis and no clubbing. Calves are nontender to palpation. GASTROINTESTINAL: Abdomen is soft, nontender and nondistended. Bowel sounds are positive. SKIN: No acute rash. NEUROLOGIC: Exam is limited at the present time. PERTINENT LABORATORY DATA Pertinent laboratory data: Chest x-ray was done this morning and reviewed. There are bilateral pulmonary infiltrates noted - most consistent with pulmonary edema. However, I can not rule out underlying infiltrates/pneumonia.. Compared to the initial film done in the Emergency Room, there appears to be less pulmonary edema on today's film. The patient also had a CT scan of the chest done on 09/08/2017. There is a large right lower lobe lung mass noted. There is also minimal changes at the left base consistent with minimal atelectasis. There is no lymphadenopathy. There is moderately severe central lobular emphysema. Initial arterial blood gas - was done on nasal cannula. Results are: PH of 7.35, pCO2 of 64, and pO2 of 103. We are awaiting a repeat arterial blood gas this morning. CBC: White count of 12.4, hemoglobin of 7.3, hematocrit of 22.8, and platelets of 200,000. Complete metabolic profile: Creatinine of 0.6, glucose of 116, calcium of 8.1, and AST of 48. Troponin of 0.14. Total protein of 5.5 and albumin of 2.6. Rest of the metabolic profile is within normal limits. Initial B-type nature peptide - 5440. IMPRESSION 1. Status post cardiopulmonary resuscitation. 2. Respiratory failure. 3. Advanced chronic obstructive pulmonary disease. 4. Congestive heart failure. 5. Rule out underlying pneumonia. 6. Right lower lobe lung mass. 7. Anemia. PLAN: Again, I did discuss the case with the night nurse at length. I have also discussed the case with the daughter at length yesterday. I have also reviewed the chart at length. The patient presents to [facility] - transferred from [facility] - because of increasing pulmonary symptoms and fever. I did review the initial chest x-ray done in the Emergency Room. This x-ray was most consistent with congestive heart failure and bilateral pleural effusions. I have also reviewed the chest x-ray from this morning. The chest x-ray shows bilateral pulmonary infiltrates(somewhat less) most consistent with pulmonary edema. However, again, I cannot rule out underlying pneumonia. Procalcitonin has been ordered. The patient has been started on antibiotic therapy as per Infectious Diseases. Inputs are noted. On physical exam, there is mild bronchospasm noted. I will continue the current nebulizer treatments and inhaled steroids. I will also add low-dose intravenous steroids. Cardiology evaluation with Dr. Rich has also been ordered. As above, the patient did have an outpatient CT scan of the chest. The CT scan showed a large right lower lobe lung mass. At our meeting yesterday, the daughter is well aware of this lung mass. We are awaiting additional family decisions. Unfortunately, the overall status/prognosis for this patient is poor. I will discuss the above with the entire ICU team in the next few moments. I will also discuss the above with the attending physician later this morning. Thank you very much for this pulmonary consultation. Iván Keys MD MINDY
[2017-09-26] MEDS: Azithromycin 500MG/NS 250ml 500 MG/250 ML BAG IVPB SCH (11:41)
[2017-09-26 12:10] LABS: PROLACTIN 29.4 ng/mL (3.0-18.9)
[2017-09-26] MEDS: Sodium Chloride 0.9% 1,000 ML IV SCH (15:48)
--- NOTE | 2017-09-26 18:04 | CARD ---
APPROVED REPORT EXAM: Two-dimensional and M-mode echocardiogram with Doppler and color Doppler. INDICATION CODED IN ED/CHF 2D DIMENSIONS Left Atrium (2D)5.2 (1.6-4.0cm)IVSd0.9 (0.7-1.1cm) LVDd4.6 (3.9-5.9cm)LVOT Diameter1.7 (1.8-2.4cm) PWd1.1 (0.7-1.1cm)LVDs2.8 (2.5-4.0cm) FS (%) 38.7 %LVEF (%)69.1 (>50%) M-Mode DIMENSIONS Aortic Root2.70 (2.2-3.7cm)Aortic Cusp Exc.0.70 (1.5-2.0cm) Aortic Valve AoV Peak Nuvqejpb719.0cm/sAoV VTI94.3cmAO Peak GR.76mmHg LVOT Peak Cxripbsk427.0cm/sLVOT VTI23.90cmAO Mean GR.39mmHg ALEIDA (VMAX)0.62am4UFQ (VTI)0.58cm2 Mitral Valve MV E Qumuejef013.0cm/sMV A Fcfowqnq811.0cm/sMV GRA659th E/A ratio0.9MVA (PHT)2.02cm2 TDI Lateral E' Peak V8.09cm/sMedial E' Peak V5.26cm/sE/Lateral E'16.4 E/Medial E'25.3 Pulmonary Valve PV Peak Kekpqkum45.6cm/sPV Peak Grad.4mmHg Tricuspid Valve TR Peak Wabsxrui319rt/sRAP QYFHDORF92whNfWC Peak Gr.44mmHg [id number] LEFT VENTRICLE The left ventricle is normal size. There is borderline concentric left ventricular hypertrophy. The left ventricular function is normal. The left ventricular ejection fraction is within the normal range. There is normal LV segmental wall motion. Transmitral Doppler flow pattern is Grade I-abnormal relaxation pattern. RIGHT VENTRICLE The right ventricle is normal size. There is normal right ventricular wall thickness. The right ventricular systolic function is normal. ATRIA The left atrium is mildly dilated. The right atrium is mildly dilated. AORTIC VALVE The aortic valve is moderately calcified. There is severe valvular aortic stenosis. MITRAL VALVE Mitral annular calcification is severe Consider a mitral valve vegitation Mitral regurgitation is moderate. TRICUSPID VALVE There is moderate pulmonary hypertension. GREAT VESSELS The aortic root is normal in size. PERICARDIAL EFFUSION There is moderate left pleural effusion. There is a trace circumferential pericardial effusion. <Conclusion> The left ventricle is normal size. The left ventricular function is normal. The left ventricular ejection fraction is within the normal range. There is normal LV segmental wall motion. Transmitral Doppler flow pattern is Grade I-abnormal relaxation pattern. The aortic valve is moderately calcified. The aortic valve is moderately calcified. There is severe valvular aortic stenosis. Mitral regurgitation is moderate. Consider a mitral valve vegitation There is moderate pulmonary hypertension.
[2017-09-26] MEDS: Heparin25000 units/250ml 1/2NS 25,000 UNITS/250 ML BAG IV PRN (22:00)
--- NOTE | 2017-09-26 23:52 | CON ---
DATE: 09/26/2017 CARDIOLOGY CONSULTATION HISTORY OF PRESENT ILLNESS: The patient is a 76-year-old woman who presented to the emergency room with a cardiopulmonary arrest. She was placed on a ventilator. The patient's past medical history is notable for a recent spinal surgery. In addition, a cardiac catheterization performed in June of last year revealed mild aortic stenosis as well as single vessel CAD of the circumflex artery. Currently, the patient is on a ventilator and unresponsive. PHYSICAL EXAMINATION: VITAL SIGNS: Blood pressure 108/49, heart rate is in the 80s. NECK: Negative JVD. LUNGS: Decreased breath sounds bilaterally. HEART: Reveal S1, S2. 2/6 systolic ejection murmur. EXTREMITIES: Without edema. NEUROLOGIC: The patient is unresponsive. EKG reveals sinus rhythm with poor R-wave progression. LABORATORY DATA: Hemoglobin is 9.5. Chemistries, BUN and creatinine unremarkable. Troponin was 0.14. IMPRESSION: 1. [id number] myocardial infarction. 2. Status post cardiopulmonary arrest. 3. History of mild aortic stenosis. 4. Respiratory failure. Given these findings, the patient is currently a DNR. An echo was done. We will review the findings. Sanju Rich MD
[2017-09-27] MEDS: Acetylcysteine 20% Inhal Soln (4ml) IH SCH ×4 (01:42→20:05)
[2017-09-27] MEDS: Albuterol 0.083% Inhal Sol (2.5 mg/3 mL) UD IH SCH ×4 (01:42→20:06)
--- NOTE | 2017-09-27 01:57 | CON ---
DATE: 09/26/2017 LOCATION: The patient was seen early this morning in room 129, bed 1. CHIEF COMPLAINT: The patient is intubated on ventilator and was unable to give the history. HISTORY OF PRESENT ILLNESS: This is a 76-year-old female with past medical history significant for end-stage COPD and longtime smoker, atrial fibrillation, osteoarthritis, compression fracture L1 and L2, history of Streptococcus pneumonia, bacteremia, which is recurrent, bone marrow biopsy was done in the past, multiple myeloma was . The patient now admitted with a diagnosis of congestive heart failure, intubated on a ventilator, Infectious Disease consultation was requested. The patient was seen early this morning, intubated, on a ventilator and the patient was seen in the Emergency Room yesterday by Dr. Bernard, who stated that the patient had recent cervical spine surgery at [facility] and admitted to the Emergency Room from the half-way because of shortness of breath. The patient was intubated on ventilator. REVIEW OF SYSTEMS: A 12-point review of systems is noted. PAST MEDICAL HISTORY: Significant for end-stage chronic obstructive lung disease, atrial fibrillation, hypertension, hyperlipidemia, compression fracture in L1 and L2, history of recurrent strep pneumonia, bacteremia and history of osteoarthritis, anxiety, and tobacco use. PAST SURGICAL HISTORY: Significant for colonoscopy, bilateral cataract surgery and recent cervical spine surgery and left hip surgery. ALLERGIES: THE PATIENT HAS NO KNOWN ALLERGIES. MEDICATIONS: At home include; oxycodone inhalers, Xanax, Coumadin, Lipitor, and aspirin. PHYSICAL EXAMINATION GENERAL: The patient is seen, intubated on ventilator. Much, much older than her stated age. VITAL SIGNS: Temperature of 98, T-Max was 100.2, heart rate of 80, was up to 91, and in the Emergency Room it was up to 104, the patient had a respiratory rate of 25 to 30, blood pressure is 104/57. HEENT: Unremarkable. NECK: Supple. LUNGS: Decreased breath sounds. HEART: Normal S1 and S2. ABDOMEN: Soft, nontender. LABORATORY DATA: Revealed the white count of 4400, hemoglobin of 7 and platelets of 200, 9% bandemia, and coagulation is noted. Blood gases are noted. BUN of 14, creatinine 0.4. The patient's procalcitonin is 1.0 with troponin of 0.14, and BNP is 5440. Urinalysis is noted and unremarkable serology. Urine for legionella antigen is negative. Blood cultures have no growth. Sputum cultures are pending. The patient had an echo with an ejection fraction of 59% and chest x-ray that shows an ill-defined opacity in the right upper hemithorax, possible pneumonia, and another chest x-ray yesterday was reviewed. ASSESSMENT AND PLAN: A 76-year-old female with end-stage chronic obstructive lung disease, atrial fibrillation, osteoarthritis, hypertension, compression fracture L1 and L2, hypertension, Streptococcus bacteremia by history x2 and anxiety, admitted after recent surgery of cervical spine surgery, now with shortness of breath and low grade fevers. 1. Severe sepsis with healthcare hospital acquired probable gram-positive cocci versus gram-negative chapito and pneumonia in the right upper lobe because of elevated procalcitonin in the patient with an acute diastolic congestive heart failure on top of chronic congestive heart failure and we are currently treating the patient with cefepime and vancomycin. We will follow closely with you. The patient also on azithromycin. We also order influenza. Jean Dawn MD
[2017-09-27] MEDS: Sodium Chloride 0.9% 1,000 ML IV SCH (02:00)
[2017-09-27] MEDS: Cefepime IV 2 gm in NS 2 GM/100 ML BAG IVPB SCH ×3 (05:10→21:22)
[2017-09-27 05:42] LABS: ARTERIAL BLOOD GAS HCO3 25.1 mmol/L (21-28); ARTERIAL BLOOD GAS HEMOGLOBIN 8.8 g/dL (11.7-17.4); ARTERIAL BLOOD GAS O2 CAPACITY 12.4 mL/dl (16-24); ARTERIAL BLOOD GAS O2 CONTENT 12.4 ML/dl (15-23); ARTERIAL BLOOD GAS O2 SAT 100.2 % (95-98); ARTERIAL BLOOD GAS PCO2 51 mm/Hg (35-45); ARTERIAL BLOOD GAS TCO2 26.7 mmol.L (22-28)
[2017-09-27 06:28] LABS: BASO # 0.01 K/mm3 (0.0-2.0); BASO % 0.1 % (0.0-3.0); GRAN # 6.34 (1.4-6.5); GRAN % 88.7 % (50.0-68.0); HEMOGLOBIN 9.8 g/dL (12.0-16.0); LYMPH # 0.6 (1.2-3.4); LYMPH % 8.5 % (22.0-35.0); MEAN CELL VOLUME 95.4 fl (80.0-105.0); MEAN CORPUSCULAR HGB CONC 33.6 g/dl (31.0-37.0); MEAN PLATELET VOLUME 9.9 fl (7.0-11.0); MONO # 0.2 (0.1-0.6); MONO % 2.7 % (1.0-6.0); RBC 3.06 10^6/uL (3.5-6.1); WHITE BLOOD COUNT 7.2 10^3/ul (4.5-11.0)
[2017-09-27 06:49] LABS: ALBUMIN 2.7 g/dL (3.0-4.8); ALT/SGPT 40 U/L (7-56); AST/SGOT 36 U/L (14-36); BLOOD UREA NITROGEN 24 mg/dL (7-21); CALCIUM 8.7 mg/dL (8.4-10.5); GFR AFRICAN-AMERICAN > 60; GFR NON-AFRICAN AMERICAN > 60; INR 1.03 (0.93-1.08); PROTHROMBIN TIME 11.8 SECONDS (9.4-12.5)
[2017-09-27] MEDS ORDERED: Potassium Chloride 40 mEq/30 ml LIQ UD PO ONE (07:52)
--- NOTE | 2017-09-27 07:56 | PN ---
DATE: 09/27/2017(635am-725am) PULMONARY NOTE SUBJECTIVE: The patient remains on the ventilator. She is currently sedated. PHYSICAL EXAMINATION: VITAL SIGNS: Temperature is 97.8, pulse 74, respirations 17/16, blood pressure 100/50. HEENT: Normocephalic, atraumatic. NECK: No JVD. CARDIOVASCULAR: Systolic ejection murmur at the lower left sternal border. Positive S3 gallop. LUNGS: Decreased breath sounds with crackles at both bases. Less rhonchi. No wheezing. EXTREMITIES: Positive for mild edema. No cyanosis or clubbing. GI: Abdomen is soft, nondistended. Bowel sounds are positive. SKIN: No acute rash. NEUROLOGIC: Exam limited at the present time. PERTINENT LABORATORY DATA: Chest x-ray was done this morning and reviewed. There are less bilateral pulmonary infiltrates on today's film. There is less pulmonary edema. There are small bilateral pleural effusions. The right lower lobe mass remains. Arterial blood gas was done on assist control 16, tidal volume 400, FiO2 60%. Results are: pH 7.30, pCO2 of 51, pO2 of 157. IMPRESSION: 1. Status post cardiopulmonary resuscitation. 2. Respiratory failure. 3. Advanced chronic obstructive pulmonary disease. 4. Congestive heart failure. 5. Probable underlying pneumonia. 6. Non-ST elevation myocardial infarction. 7. Right lower lobe lung mass. PLAN: The patient remains on the ventilator. She is currently sedated. I discussed the case with the night nurse at length. The night nurse stated that the patient had an uneventful night. I have also reviewed the chest x-ray - as above. There are less pulmonary infiltrates on today's film. I have also reviewed the arterial blood gas. The arterial blood gas reveals a mild respiratory acidosis with quite adequate oxygenation. I would consider decreasing the FiO2 at this point in time. I have also reviewed the laboratory data from yesterday. The procalcitonin is slightly elevated. I would continue with the antibiotic coverage as per Infectious Disease. Input by Dr. Dawn is noted. The temperatures have now fully resolved. The leukocytosis has also fully resolved. Input by Cardiology (Dr. Rich) is also noted. On physical exam, there is less bronchospasm noted. I will continue with the current nebulizer treatments and low-dose intravenous steroids for now. The clinical status of the patient is certainly improved - compared to a few days ago. However, unfortunately, the future status/prognosis for this patient remains poor. I did discuss the case with Dr. Shipman at length yesterday. We are awaiting additional family decisions. The patient is now a DNR/DNI status. I will also discuss the above with the entire ICU team in the next few moments. Iván Keys MD [id number]
[2017-09-27] MEDS: Budesonide 0.5 mg/2 ml Inhal Susp UD IH SCH ×2 (08:05→20:06)
--- NOTE | 2017-09-27 08:35 | CP.PCM.PN ---
Addendum entered and electronically signed by Mora Morales DO 09/27/17 11: 05: Once patient was extubated patient reports that she changed her mind and wants to have CPR done if her heart were to stop. She reports she is not sure about being re-intubated. Patient will be full code as of now. She states she wants to discuss her code status again once her children are present. Daughter is aware. Original Note: <Mora Morales - Last Filed: 09/27/17 10:44> Subjective - Date & Time of Evaluation Date of Evaluation: 09/27/17 Time of Evaluation: 08:32 - Subjective Subjective: ICU Progress Note for Xochitl Aguilar PGY2 Patient seen and examined at bedside. As per nursing staff, there were no acute overnight events. Patient is intubated and on mild sedation. ROS was limited. Patient was nodding yes and no to ROS. She reports having pain in her neck, but is able to follow commands. She denies chest pain, shortness of breath, fever/ chills, nausea/vomiting or diarrhea. Objective - Vital Signs/Intake and Output Vital Signs (last 24 hours): Temp Pulse Resp BP Pulse Ox 97.8 F 74 17 100/50 L 100 09/27/17 06:00 09/27/17 06:00 09/27/17 06:00 09/27/17 06:00 09/27/17 06:00 Intake and Output: 09/27/17 09/27/17 06:59 18:59 Intake Total 2465 24 Output Total 2700 Balance -235 24 - Medications Medications: Current Medications Acetylcysteine (Acetylcysteine 20%) 4 ml IH Q6 [facility] Last Admin: 09/27/17 08:05 Dose: 4 ml Albuterol Sulfate (Albuterol 0.083% Inhal Lesley (2.5 Mg/3 Ml) Ud) 2.5 mg IH Q6 [facility] Last Admin: 09/27/17 08:05 Dose: 2.5 mg Aspirin (Ecotrin) 81 mg PO DAILY [facility] Last Admin: 09/26/17 10:01 Dose: Not Given Atorvastatin Calcium (Lipitor) 40 mg PO HS [facility] Last Admin: 09/26/17 22:00 Dose: 40 mg Budesonide (Pulmicort Respules) 0.5 mg IH [id number] [facility] Last Admin: 09/27/17 08:05 Dose: 0.5 mg Furosemide (Lasix) 40 mg IVP DAILY [facility] Last Admin: 09/26/17 09:58 Dose: 40 mg Midazolam 100 mg/100ml in NS (Midazolam 100 Mg/100ml In Ns) 100 mg in 100 mls @ 1 mls/hr IV .Q24H PRN; Protocol; 1 MG/HR PRN Reason: Agitation Last Titration: 09/27/17 07:21 Dose: 1 mg/hr, 1 mls/hr Azithromycin (Zithromax 500mg In Ns) 500 mg in 250 mls @ 167 mls/hr IVPB DAILY [facility] PRN Reason: Protocol Last Admin: 09/26/17 11:41 Dose: 167 mls/hr Sodium Chloride (Sodium Chloride 0.9%) 1,000 mls @ 100 mls/hr IV .Q10H [facility] Last Admin: 09/27/17 02:00 Dose: 100 mls/hr Heparin Sodium/Sodium Chloride (Heparin 69859 Units/250ml 1/2 Normal Saline) 25 ,000 units in 250 mls @ 9.36 mls/hr IV .Q24H PRN; Protocol; 18 UNITS/KG/HR PRN Reason: ADJUST RATE PER PROTOCOL Last Titration: 09/27/17 02:00 Dose: 16 units/kg/hr, 8.32 mls/hr Vancomycin HCl (Vancomycin 1gm) 1 gm in 250 mls @ 167 mls/hr IVPB BID [facility] PRN Reason: Protocol Last Admin: 09/26/17 19:00 Dose: 167 mls/hr Cefepime HCl (Maxipime 2gm) 2 gm in 100 mls @ 100 mls/hr IVPB Q8 [facility] PRN Reason: Protocol Stop: 09/30/17 22:01 Last Admin: 09/27/17 05:10 Dose: 100 mls/hr Methylprednisolone (Solu-Medrol) 30 mg IVP Q12 [facility] Last Admin: 09/26/17 21:42 Dose: 30 mg Pantoprazole Sodium (Protonix Inj) 40 mg IVP DAILY [facility] Last Admin: 09/26/17 09:58 Dose: 40 mg Warfarin Sodium (Coumadin) 6 mg PO DAILY [facility] PRN Reason: Protocol - Labs Labs: 09/27/17 06:00 09/27/17 06:00 PT 11.8 SECONDS (9.4-12.5) 09/27/17 06:00 INR 1.03 (0.93-1.08) 09/27/17 06:00 APTT 84.9 Seconds (25.1-36.5) H 09/27/17 07:05 - Constitutional Appears: No Acute Distress, Chronically Ill - Head Exam Head Exam: ATRAUMATIC, NORMAL INSPECTION, NORMOCEPHALIC - Eye Exam Eye Exam: Normal appearance Pupil Exam: NORMAL ACCOMODATION, PERRL - ENT Exam ENT Exam: Mucous Membranes Moist - Neck Exam Neck Exam: Tenderness (to posterior palpation ) Additional comments: sutures in posterior cervical spine in place- crusted over. - Respiratory Exam Respiratory Exam: Rhonchi (bilateral ), NORMAL BREATHING PATTERN. absent: Rales , Wheezes, Stridor - Cardiovascular Exam Cardiovascular Exam: Irregular Rhythm, +S1, +S2. absent: Gallop, Rubs, Murmur - GI/Abdominal Exam GI & Abdominal Exam: Soft, Normal Bowel Sounds. 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 She is also found to have NSTEMI as well as R lower lung mass. Plan: Neuro: Pt intubated and sedated- but awake alert and following commands B/L upper extremity weakness which is chronic Head CT negative for acute pathology Continue neuro check Maintain normothermia CV: Hx of a.fib and CHF NSTEMI Pt on Hep drip Was not on Coumadin due to recent surgery consider starting eliquis once swallow eval done Monitor PTT and INR Continue Lasix IVP Monitor I&O Maintain MAP >65 Echo showed EF of 69% with severe aortic stenosis, mild MR, mod pulm HTN and possible mitral valve vegetation? Cardio Consulted- recs appreciated Pulm: Hx of COPD R lung mass found on CXR Intubated on PRVC- will extubate today Continue Pulmicort, Albuterol, Mucomyst Continue Solumedrol- will wean as tolerated Protective lung ventilation strategy Aspiration precaution Maintain SpO2>92% Pulm consulted- recs appreciated GI: Swallow eval pending Continue GI ppx Heme: Hx of chronic anemia s/p 2U PRBC Hgb stable- no overt signs of bleeding Nephro: Mild hypokalemia Will continue to monitor electrolytes and replace as needed ID: Sepsis secondary to HCAP Afebrile, no leukocytosis ID consulted- recs appreciated Continue cefepime and Vanco Will change zithromax to doxycycline for prolonged Qtc Legionella negative Influenza pending Endo: Maintain euglycemia GI ppx: PTX DVT ppx: Heparin drip Dispo: Patient is DNR/DNI as per patient and family. Palliative on consult. Prognosis is guarded. Case seen, discussed and reviewed with attending. Xochitl Morales PGY2 <Jaiden Gregory - Last Filed: 09/27/17 12:25> Objective - Vital Signs/Intake and Output Vital Signs (last 24 hours): Temp Pulse Resp BP Pulse Ox 97.3 F L 90 17 104/56 L 100 09/27/17 12:00 09/27/17 11:04 09/27/17 06:00 09/27/17 09:20 09/27/17 06:00 Intake and Output: 09/27/17 09/27/17 06:59 18:59 Intake Total 2465 24 Output Total 2700 Balance -235 24 - Medications Medications: Current Medications Acetylcysteine (Acetylcysteine 20%) 4 ml IH [id number] [facility] Albuterol Sulfate (Albuterol 0.083% Inhal Lesley (2.5 Mg/3 Ml) Ud) 2.5 mg IH [id number] [facility] Aspirin (Ecotrin) 81 mg PO DAILY [facility] Last Admin: 09/27/17 09:18 Dose: 81 mg Atorvastatin Calcium (Lipitor) 40 mg PO HS [facility] Last Admin: 09/26/17 22:00 Dose: 40 mg Budesonide (Pulmicort Respules) 0.5 mg IH [id number] [facility] Last Admin: 09/27/17 08:05 Dose: 0.5 mg Furosemide (Lasix) 40 mg IVP DAILY [facility] Last Admin: 09/27/17 09:20 Dose: 40 mg Vancomycin HCl (Vancomycin 1gm) 1 gm in 250 mls @ 167 mls/hr IVPB BID [facility] PRN Reason: Protocol Last Admin: 09/27/17 09:22 Dose: 167 mls/hr Cefepime HCl (Maxipime 2gm) 2 gm in 100 mls @ 100 mls/hr IVPB Q8 [facility] PRN Reason: Protocol Stop: 09/30/17 22:01 Last Admin: 09/27/17 05:10 Dose: 100 mls/hr Heparin Sodium/Sodium Chloride (Heparin 10976 Units/250ml 1/2 Normal Saline) 25 ,000 units in 250 mls @ 8.073 mls/hr IV .Q24H [facility]; 14 UNITS/KG/HR PRN Reason: Protocol Last Admin: 09/27/17 09:19 Dose: 14 units/kg/hr, 8.073 mls/hr Doxycycline Hyclate 100 mg/ (Sodium Chloride) 100 mls @ 100 mls/hr IVPB Q12 [facility] PRN Reason: Protocol Potassium Chloride (Potassium Chloride 10 Meq/100 Ml) 10 meq in 100 mls @ 50 mls/hr IVPB ONCE ONE Stop: 09/27/17 12:46 Last Admin: 09/27/17 11:12 Dose: 50 mls/hr Methylprednisolone (Solu-Medrol) 30 mg IVP Q12 [facility] Last Admin: 09/27/17 09:21 Dose: 30 mg Pantoprazole Sodium (Protonix Inj) 40 mg IVP DAILY [facility] Last Admin: 09/27/17 09:21 Dose: 40 mg - Labs Labs: 09/27/17 06:00 09/27/17 06:00 PT 11.8 SECONDS (9.4-12.5) 09/27/17 06:00 INR 1.03 (0.93-1.08) 09/27/17 06:00 APTT 84.9 Seconds (25.1-36.5) H 09/27/17 07:05 Attending/Attestation - Attestation I have personally seen and examined this patient.: Yes I have fully participated in the care of the patient.: Yes I have reviewed all pertinent clinical information, including history, physical exam and plan: Yes Notes (Text): 09/27/17 12:21 The patient was seen and examined at the bedside. Patient care was discussed with resident Medical records, lab studies, and imaging were reviewed and management issues were discussed and formulated. Last 24H events reviewed. Agree with above treatment plans as outlined in 's note with addition of the following: -hemodynamic monitoring to maintain MAP>65; cardiology team f\u; consider STEFANO -mechanical ventilation and o2 supplementation to maintain Spo2 >90 Pao2>60 -monitor for TV 6ml\kg IBW and plateau pressure <30 -ABG in AM reviewed and CXR reviewed -pt tolerated PS and we will proceed with extubation directly to Bipap as pt has a h\o chronic COPD -continue nebs and steroids -continue broad spectrum Abx as per ID team ; f\u cultures -f\u Bun\Cr and U\o; d\c IVF; continue diuresis with lasix -NPO pending dysphagia eval if successfully extubated; continue aspiration precautions -heparin drip and monitor PTT and for bleeding -DVT \ PUD prophylaxis CCM time 35min
[2017-09-27] MEDS ORDERED: Heparin25000 units/250ml 1/2NS 25,000 UNITS/250 ML BAG IV PRN (08:44)
[2017-09-27] MEDS: Heparin25000 units/250ml 1/2NS 25,000 UNITS/250 ML BAG IV SCH (09:19)
[2017-09-27] MEDS: MethylPREDNISolone 40 mg Vial IVP SCH ×2 (09:21→21:27)
[2017-09-27] MEDS: Azithromycin 500MG/NS 250ml 500 MG/250 ML BAG IVPB SCH (09:22)
[2017-09-27] MEDS: Vancomycin 1gm in NS 250ml 1 GM/250 ML BAG IVPB SCH ×2 (09:22→21:25)
--- NOTE | 2017-09-27 09:26 | PN ---
DATE: 09/26/2017 SUBJECTIVE: The patient is 76 years old, seen and examined in ICU, intubated, daughter by the bedside, seems to be awake and alert. PHYSICAL EXAMINATION: VITAL SIGNS: She is afebrile, pulse 90, respirations 23, blood pressure 117/47. LUNGS: Bilateral soft crackles at bases. HEART: S1 and S2 audible. ABDOMEN: Soft, nontender, no rebound, no guarding. NEUROLOGIC: The patient is awake and alert, but not communicative because of intubation. EXTREMITIES: Bilateral leg, no edema. SCDs in place. LABORATORY DATA: WBC is 9.2, hemoglobin 9.5, hematocrit 29.4, platelet of 198. Chemistry: Sodium 138, potassium 3.3, chloride 104, CO2 of 29, BUN 14, creatinine 0.5, blood sugar 74. Blood cultures are negative. X-ray of chest shows bilateral infiltrate also in the right upper and lower lobe with bilateral pleural effusion. ASSESSMENT: 1. Respiratory failure, on ventilation. 2. Right upper and lower lobe pneumonia. 3. Hypoxia. 4. Chronic atrial fibrillation. PLAN: The patient's potassium is being supplemented. Currently she is on Zithromax, vancomycin and cefepime and continue that. Continue vent support. Continue nebulizer treatment. Daughter by the bedside, she made DNR. Recent cervical discectomy seems to be healing. We will continue her on diuretics and we will re-evaluate the patient in a.m. Hellen Shipman MD
--- NOTE | 2017-09-27 11:31 | CP.PCM.CON ---
<Pam Levy - Last Filed: 09/27/17 14:05> History of Present Illness - History of Present Illness History of Present Illness: PGY-[address] Presley Consult: Cervical radiculopathy Ms Dalila Coles, 76 F, heavy smoker with PMHx of chronic atrial fibrillation , COPD, hypertension, hyperlipidemia, recent cervical spine diskectomy due to C4 cord compression, compression fracture of L1/L2, and anemia presented from [place] c/o fever, cough, and increasing SOB. Initially admitted to telemetry for healthcare associated pneumona. Patient later became unresponsive, code blue was called, rhythm was asystole as per ER staff, 90 second of CPR done, 1mg Epi given, patient then had ROSC. Currently, Pt is status post cardiopulmonary resuscitation. Pt has a NSTEMI and on heparin gtt. She is just extubated to Bipap. PMH C4 spinal cord compression s/p diskectomy Chronic A fib, THN, HLD CHF COPD, end stage Chronic anemia Compression fracture L1, L2 Hx R lower lobe lung mass PSH cervical spine diskectomy due to C4 cord compression, 09/08/2017, [facility], rehab at [facility] Non-contributory SH Single, live with daughter Heavy smoker, more than 50 years Allergies NKDA Meds ASA 81. Atorvastatin 40 thiamine 100 dailyt Alprazolam Coumadin Past Patient History - Infectious Disease Hx of Infectious Diseases: None - Tetanus Immunizations Tetanus Immunization: Unknown - Past Medical History & Family History Past Medical History?: Yes - Past Social History Smoking Status: Never Smoked - CARDIAC Hx Congestive Heart Failure: Yes Hx Pacemaker: No - PULMONARY Hx Chronic Obstructive Pulmonary Disease (COPD): Yes - NEUROLOGICAL Hx Neurological Disorder: No - HEENT Hx Cataracts: Yes (b/l cataracts no sx) Other/Comment: sx for detached retina right eye 2 days ago 2nd sx same eye uses silicone oil, first sx used gas bubble which did not work, visually impaired right eye sees shadows and diminished peripheral vision - RENAL Hx Chronic Kidney Disease: No - ENDOCRINE/METABOLIC Hx Endocrine Disorders: No - HEMATOLOGICAL/ONCOLOGICAL Hx Anemia: No (pt denies) - INTEGUMENTARY Hx Dermatological Problems: No Other/Comment: rle varicone veins, dry skin to feet, buttocks reddened, multiple brown spots on upper back - MUSCULOSKELETAL/RHEUMATOLOGICAL Hx Falls: Yes - GASTROINTESTINAL Hx Gastrointestinal Disorders: No - GENITOURINARY/GYNECOLOGICAL Hx Incontinence: Yes - PSYCHIATRIC Hx Emotional Abuse: No Hx Physical Abuse: No - SURGICAL HISTORY Hx Musculoskeletal Surgery: Yes (left hip replacement) Other/Comment: kyphoplasty. history of cervical surgery for cord compression fracture - ANESTHESIA Hx Anesthesia Reactions: No Hx Malignant Hyperthermia: No Meds Allergies/Adverse Reactions: Allergies Allergy/AdvReac Type Severity Reaction Status Date / Time No Known Allergies Allergy Verified 09/25/17 04:14 - Medications Medications: Current Medications Acetylcysteine (Acetylcysteine 20%) 4 ml IH Q6 [facility] Last Admin: 09/27/17 08:05 Dose: 4 ml Albuterol Sulfate (Albuterol 0.083% Inhal Lesley (2.5 Mg/3 Ml) Ud) 2.5 mg IH [id number] [facility] Aspirin (Ecotrin) 81 mg PO DAILY [facility] Last Admin: 09/27/17 09:18 Dose: 81 mg Atorvastatin Calcium (Lipitor) 40 mg PO HS [facility] Last Admin: 09/26/17 22:00 Dose: 40 mg Budesonide (Pulmicort Respules) 0.5 mg IH [id number] [facility] Last Admin: 09/27/17 08:05 Dose: 0.5 mg Furosemide (Lasix) 40 mg IVP DAILY [facility] Last Admin: 09/27/17 09:20 Dose: 40 mg Vancomycin HCl (Vancomycin 1gm) 1 gm in 250 mls @ 167 mls/hr IVPB BID [facility] PRN Reason: Protocol Last Admin: 09/27/17 09:22 Dose: 167 mls/hr Cefepime HCl (Maxipime 2gm) 2 gm in 100 mls @ 100 mls/hr IVPB Q8 [facility] PRN Reason: Protocol Stop: 09/30/17 22:01 Last Admin: 09/27/17 05:10 Dose: 100 mls/hr Heparin Sodium/Sodium Chloride (Heparin 00085 Units/250ml 1/2 Normal Saline) 25 ,000 units in 250 mls @ 8.073 mls/hr IV .Q24H [facility]; 14 UNITS/KG/HR PRN Reason: Protocol Last Admin: 09/27/17 09:19 Dose: 14 units/kg/hr, 8.073 mls/hr Doxycycline Hyclate 100 mg/ (Sodium Chloride) 100 mls @ 100 mls/hr IVPB Q12 [facility] PRN Reason: Protocol Potassium Chloride (Potassium Chloride 10 Meq/100 Ml) 10 meq in 100 mls @ 50 mls/hr IVPB ONCE ONE Stop: 09/27/17 12:46 Last Admin: 09/27/17 11:12 Dose: 50 mls/hr Methylprednisolone (Solu-Medrol) 30 mg IVP Q12 [facility] Last Admin: 09/27/17 09:21 Dose: 30 mg Pantoprazole Sodium (Protonix Inj) 40 mg IVP DAILY [facility] Last Admin: 09/27/17 09:21 Dose: 40 mg Physical Exam - Constitutional Appears: No Acute Distress Additional comments: On bipap - Head Exam Head Exam: ATRAUMATIC, NORMAL INSPECTION, NORMOCEPHALIC - Eye Exam Eye Exam: EOMI, Normal appearance, PERRL. absent: Scleral icterus Pupil Exam: NORMAL ACCOMODATION - ENT Exam ENT Exam: Mucous Membranes Dry - Neck Exam Additional comments: supple. sutures intact - Respiratory Exam Respiratory Exam: Rhonchi - Cardiovascular Exam Cardiovascular Exam: REGULAR RHYTHM, +S1, +S2 - GI/Abdominal Exam GI & Abdominal Exam: Normal Bowel Sounds, Soft. absent: Tenderness - Neurological Exam Neurological exam: Alert, CN II-XII Intact Additional comments: Speech: Hypophonic voice with hoarseness, extubated to bipap. Hypervonic. 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 Sensory: intact Reflex: 2+ thoughout except 1+ ankles - Psychiatric Exam Psychiatric exam: Flat Affect, Normal Mood - Skin Skin Exam: Dry, Warm Results - Vital Signs Recent Vital Signs: Last Vital Signs Temp 97.8 F 09/27/17 06:00 Pulse 90 09/27/17 11:04 Resp 17 09/27/17 06:00 BP 104/56 L 09/27/17 09:20 Pulse Ox 100 09/27/17 06:00 - Labs Result Diagrams: 09/27/17 06:00 09/27/17 06:00 Labs: Laboratory Results - last 24 hr 09/25/17 09/25/17 09/26/17 19:20 19:20 06:00 WBC RBC Hgb Hct MCV MCH MCHC RDW Plt Count MPV Gran % Lymph % (Auto) [place] % (Auto) Eos % (Auto) Baso % (Auto) Gran # Lymph # [place] # Eos # Baso # PT INR APTT pCO2 pO2 HCO3 ABG pH ABG Total CO2 ABG O2 Saturation ABG O2 Content ABG Base Excess ABG Hemoglobin ABG Carboxyhemoglobin POC ABG HHb (Measured) ABG Methemoglobin ABG O2 Capacity Hgb O2 Saturation FiO2 Sodium Potassium Chloride Carbon Dioxide Anion Gap BUN Creatinine Est GFR ( Amer) Est GFR (Non-Af Amer) Random Glucose Calcium Total Bilirubin AST ALT Alkaline Phosphatase Total Protein Albumin Globulin Albumin/Globulin Ratio Procalcitonin 1.00 H Prolactin 29.4 H Ur L.pneumophila Ag Negative 09/26/17 09/27/17 09/27/17 16:35 00:20 05:25 WBC RBC Hgb Hct MCV MCH MCHC RDW Plt Count MPV Gran % Lymph % (Auto) [place] % (Auto) Eos % (Auto) Baso % (Auto) Gran # Lymph # [place] # Eos # Baso # PT INR APTT 252.4 H* 164.1 H* pCO2 51 H pO2 157.0 H HCO3 25.1 ABG pH 7.30 L ABG Total CO2 26.7 ABG O2 Saturation 100.2 H ABG O2 Content 12.4 L ABG Base Excess -1.5 ABG Hemoglobin 8.8 L ABG Carboxyhemoglobin 1.8 H POC ABG HHb (Measured) -0.2 L ABG Methemoglobin 0.9 ABG O2 Capacity 12.4 L Hgb O2 Saturation 97.5 FiO2 60.0 Sodium Potassium Chloride Carbon Dioxide Anion Gap BUN Creatinine Est GFR ( Amer) Est GFR (Non-Af Amer) Random Glucose Calcium Total Bilirubin AST ALT Alkaline Phosphatase Total Protein Albumin Globulin Albumin/Globulin Ratio Procalcitonin Prolactin Ur L.pneumophila Ag 09/27/17 09/27/17 09/27/17 06:00 06:00 06:00 WBC 7.2 D RBC 3.06 L Hgb 9.8 L Hct 29.2 L MCV 95.4 MCH 32.0 MCHC 33.6 RDW 17.0 H Plt Count 181 MPV 9.9 Gran % 88.7 H Lymph % (Auto) 8.5 L [place] % (Auto) 2.7 Eos % (Auto) 0.0 L Baso % (Auto) 0.1 Gran # 6.34 Lymph # 0.6 L [place] # 0.2 Eos # 0.0 Baso # 0.01 PT 11.8 INR 1.03 APTT pCO2 pO2 HCO3 ABG pH ABG Total CO2 ABG O2 Saturation ABG O2 Content ABG Base Excess ABG Hemoglobin ABG Carboxyhemoglobin POC ABG HHb (Measured) ABG Methemoglobin ABG O2 Capacity Hgb O2 Saturation FiO2 Sodium 140 Potassium 3.5 L Chloride 106 Carbon Dioxide 24 Anion Gap 14 BUN 24 H Creatinine 0.7 Est GFR ( Amer) > 60 Est GFR (Non-Af Amer) > 60 Random Glucose 74 Calcium 8.7 Total Bilirubin 0.5 AST 36 D ALT 40 Alkaline Phosphatase 44 Total Protein 5.5 L Albumin 2.7 L Globulin 2.8 Albumin/Globulin Ratio 1.0 L Procalcitonin Prolactin Ur L.pneumophila Ag 09/27/17 07:05 WBC RBC Hgb Hct MCV MCH MCHC RDW Plt Count MPV Gran % Lymph % (Auto) [place] % (Auto) Eos % (Auto) Baso % (Auto) Gran # Lymph # [place] # Eos # Baso # PT INR APTT 84.9 H pCO2 pO2 HCO3 ABG pH ABG Total CO2 ABG O2 Saturation ABG O2 Content ABG Base Excess ABG Hemoglobin ABG Carboxyhemoglobin POC ABG HHb (Measured) ABG Methemoglobin ABG O2 Capacity Hgb O2 Saturation FiO2 Sodium Potassium Chloride Carbon Dioxide Anion Gap BUN Creatinine Est GFR ( Amer) Est GFR (Non-Af Amer) Random Glucose Calcium Total Bilirubin AST ALT Alkaline Phosphatase Total Protein Albumin Globulin Albumin/Globulin Ratio Procalcitonin Prolactin Ur L.pneumophila Ag Assessment & Plan - Assessment and Plan (Free Text) Plan: Consult: Cervical radiculopathy Ms Dalila Coles, 76 F, has a recent cervical spine diskectomy due to C4 cord compression on 09/08/17 and went to [facility] rehab. She is a heavy smoker with PMHx of chronic atrial fibrillation, COPD, hypertension, hyperlipidemia, anemia and compression fracture of L1/L2. She was admitted to the hospital for HCAP. Patient has a code blue for asystole possibly due to CHF vs respiratory failure vs NSTEMI. Pt was ROSC after 90 seconds of CPR. Pt is now status post cardiopulmonary resuscitation, just extubated to bipap this morning. Acute on chronic cervical radiculopathy s/p cervical spine diskectomy - Gabapentin 300 HS for neuropathic pain - PT/OT eval for muscle stretching, therapeutic exercise and TENS unit - Continue underlying treatment of CHF and medical conditions - continue ASA 81 and Atorvastatin 40. s/r/d/w Dr. Presley <Odin Presley - Last Filed: 09/27/17 15:06> Meds - Medications Medications: Current Medications Acetylcysteine (Acetylcysteine 20%) 4 ml IH [id number] [facility] Last Admin: 09/27/17 13:35 Dose: 4 ml Albuterol Sulfate (Albuterol 0.083% Inhal Lesley (2.5 Mg/3 Ml) Ud) 2.5 mg IH [id number] [facility] Last Admin: 09/27/17 13:35 Dose: 2.5 mg Aspirin (Ecotrin) 81 mg PO DAILY [facility] Last Admin: 09/27/17 09:18 Dose: 81 mg Atorvastatin Calcium (Lipitor) 40 mg PO HS [facility] Last Admin: 09/26/17 22:00 Dose: 40 mg Budesonide (Pulmicort Respules) 0.5 mg IH [id number] [facility] Last Admin: 09/27/17 08:05 Dose: 0.5 mg Furosemide (Lasix) 40 mg IVP DAILY [facility] Last Admin: 09/27/17 09:20 Dose: 40 mg Gabapentin (Neurontin) 300 mg PO HS [facility] PRN Reason: Protocol Cefepime HCl (Maxipime 2gm) 2 gm in 100 mls @ 100 mls/hr IVPB Q8 [facility] PRN Reason: Protocol Stop: 09/30/17 22:01 Last Admin: 09/27/17 05:10 Dose: 100 mls/hr Heparin Sodium/Sodium Chloride (Heparin 67129 Units/250ml 1/2 Normal Saline) 25 ,000 units in 250 mls @ 8.073 mls/hr IV .Q24H [facility]; 14 UNITS/KG/HR PRN Reason: Protocol Last Admin: 09/27/17 09:19 Dose: 14 units/kg/hr, 8.073 mls/hr Doxycycline Hyclate 100 mg/ (Sodium Chloride) 100 mls @ 100 mls/hr IVPB Q12 [facility] PRN Reason: Protocol Vancomycin HCl (Vancomycin 1gm) 1 gm in 250 mls @ 167 mls/hr IVPB Q12 [facility] PRN Reason: Protocol Methylprednisolone (Solu-Medrol) 30 mg IVP Q12 [facility] Last Admin: 09/27/17 09:21 Dose: 30 mg Pantoprazole Sodium (Protonix Inj) 40 mg IVP DAILY [facility] Last Admin: 09/27/17 09:21 Dose: 40 mg Results - Vital Signs Recent Vital Signs: Last Vital Signs Temp 97.3 F L 09/27/17 12:00 Pulse 85 09/27/17 13:40 Resp 25 H 09/27/17 12:50 BP 104/43 L 09/27/17 12:31 Pulse Ox 96 09/27/17 12:50 - Labs Result Diagrams: 09/27/17 06:00 09/27/17 06:00 Labs: Laboratory Results - last 24 hr 09/26/17 09/27/17 09/27/17 16:35 00:20 05:25 WBC RBC Hgb Hct MCV MCH MCHC RDW Plt Count MPV Gran % Lymph % (Auto) [place] % (Auto) Eos % (Auto) Baso % (Auto) Gran # Lymph # [place] # Eos # Baso # PT INR APTT 252.4 H* 164.1 H* pCO2 51 H pO2 157.0 H HCO3 25.1 ABG pH 7.30 L ABG Total CO2 26.7 ABG O2 Saturation 100.2 H ABG O2 Content 12.4 L ABG Base Excess -1.5 ABG Hemoglobin 8.8 L ABG Carboxyhemoglobin 1.8 H POC ABG HHb (Measured) -0.2 L ABG Methemoglobin 0.9 ABG O2 Capacity 12.4 L Hgb O2 Saturation 97.5 FiO2 60.0 Sodium Potassium Chloride Carbon Dioxide Anion Gap BUN Creatinine Est GFR ( Amer) Est GFR (Non-Af Amer) Random Glucose Calcium Total Bilirubin AST ALT Alkaline Phosphatase Total Protein Albumin Globulin Albumin/Globulin Ratio 09/27/17 09/27/17 09/27/17 06:00 06:00 06:00 WBC 7.2 D RBC 3.06 L Hgb 9.8 L Hct 29.2 L MCV 95.4 MCH 32.0 MCHC 33.6 RDW 17.0 H Plt Count 181 MPV 9.9 Gran % 88.7 H Lymph % (Auto) 8.5 L [place] % (Auto) 2.7 Eos % (Auto) 0.0 L Baso % (Auto) 0.1 Gran # 6.34 Lymph # 0.6 L [place] # 0.2 Eos # 0.0 Baso # 0.01 PT 11.8 INR 1.03 APTT pCO2 pO2 HCO3 ABG pH ABG Total CO2 ABG O2 Saturation ABG O2 Content ABG Base Excess ABG Hemoglobin ABG Carboxyhemoglobin POC ABG HHb (Measured) ABG Methemoglobin ABG O2 Capacity Hgb O2 Saturation FiO2 Sodium 140 Potassium 3.5 L Chloride 106 Carbon Dioxide 24 Anion Gap 14 BUN 24 H Creatinine 0.7 Est GFR ( Amer) > 60 Est GFR (Non-Af Amer) > 60 Random Glucose 74 Calcium 8.7 Total Bilirubin 0.5 AST 36 D ALT 40 Alkaline Phosphatase 44 Total Protein 5.5 L Albumin 2.7 L Globulin 2.8 Albumin/Globulin Ratio 1.0 L 09/27/17 07:05 WBC RBC Hgb Hct MCV MCH MCHC RDW Plt Count MPV Gran % Lymph % (Auto) [place] % (Auto) Eos % (Auto) Baso % (Auto) Gran # Lymph # [place] # Eos # Baso # PT INR APTT 84.9 H pCO2 pO2 HCO3 ABG pH ABG Total CO2 ABG O2 Saturation ABG O2 Content ABG Base Excess ABG Hemoglobin ABG Carboxyhemoglobin POC ABG HHb (Measured) ABG Methemoglobin ABG O2 Capacity Hgb O2 Saturation FiO2 Sodium Potassium Chloride Carbon Dioxide Anion Gap BUN Creatinine Est GFR ( Amer) Est GFR (Non-Af Amer) Random Glucose Calcium Total Bilirubin AST ALT Alkaline Phosphatase Total Protein Albumin Globulin Albumin/Globulin Ratio Attending/Attestation - Attestation I have personally seen and examined this patient.: Yes I have fully participated in the care of the patient.: Yes I have reviewed all pertinent clinical information: Yes
--- NOTE | 2017-09-27 11:58 | CP.PCM.CON ---
History of Present Illness - History of Present Illness History of Present Illness: Palliative consult requested by copied to Dr Shipman Reason: Goals of care 76 year old female with history of COPD, A Fib, HTN who was sent from [facility] with shortness of breath,weakness. She later become unresponsive and progressed to cardiopulmonary arrest> CPR> Epi> ROSC in 2 minutes. Chest x ray RUL pneumonia, bilateral lower lobe infiltrates.EKG possible anterior wall WI, age undetermined. CT findings of 3.4cm X 3.0 cm mass in superior segment of RLL with partial cavitation revealed CT of chest done 09/08/17. PMHx: COPD,CHF, A Fib, HTN, HLD, compression fracture of L1 and L2, cervical stenosis s/p kyphoplasty, left hip replacement, right eye visually impaired.. Social History:Former heavy smoker, no alcohol or drug abuse. Lives with daughter, Carolee Valencia Family History: Non contributory. Advance Care Planning: The patient does not have an Advanced Directive. Review of Systems: As per HPI, complains of low back pain and cervical neck pain , ROS otherwise limited Past Patient History - Infectious Disease Hx of Infectious Diseases: None - Tetanus Immunizations Tetanus Immunization: Unknown - Past Medical History & Family History Past Medical History?: Yes - Past Social History Smoking Status: Never Smoked - CARDIAC Hx Congestive Heart Failure: Yes Hx Pacemaker: No - PULMONARY Hx Chronic Obstructive Pulmonary Disease (COPD): Yes - NEUROLOGICAL Hx Neurological Disorder: No - HEENT Hx Cataracts: Yes (b/l cataracts no sx) Other/Comment: sx for detached retina right eye 2 days ago 2nd sx same eye uses silicone oil, first sx used gas bubble which did not work, visually impaired right eye sees shadows and diminished peripheral vision - RENAL Hx Chronic Kidney Disease: No - ENDOCRINE/METABOLIC Hx Endocrine Disorders: No - HEMATOLOGICAL/ONCOLOGICAL Hx Anemia: No (pt denies) - INTEGUMENTARY Hx Dermatological Problems: No Other/Comment: rle varicone veins, dry skin to feet, buttocks reddened, multiple brown spots on upper back - MUSCULOSKELETAL/RHEUMATOLOGICAL Hx Falls: Yes - GASTROINTESTINAL Hx Gastrointestinal Disorders: No - GENITOURINARY/GYNECOLOGICAL Hx Incontinence: Yes - PSYCHIATRIC Hx Emotional Abuse: No Hx Physical Abuse: No - SURGICAL HISTORY Hx Musculoskeletal Surgery: Yes (left hip replacement) Other/Comment: kyphoplasty. history of cervical surgery for cord compression fracture - ANESTHESIA Hx Anesthesia Reactions: No Hx Malignant Hyperthermia: No Meds Allergies/Adverse Reactions: Allergies Allergy/AdvReac Type Severity Reaction Status Date / Time No Known Allergies Allergy Verified 09/25/17 04:14 - Medications Medications: Current Medications Acetylcysteine (Acetylcysteine 20%) 4 ml IH Q6 [facility] Last Admin: 09/27/17 08:05 Dose: 4 ml Albuterol Sulfate (Albuterol 0.083% Inhal Lesley (2.5 Mg/3 Ml) Ud) 2.5 mg IH [id number] [facility] Aspirin (Ecotrin) 81 mg PO DAILY [facility] Last Admin: 09/27/17 09:18 Dose: 81 mg Atorvastatin Calcium (Lipitor) 40 mg PO HS [facility] Last Admin: 09/26/17 22:00 Dose: 40 mg Budesonide (Pulmicort Respules) 0.5 mg IH [id number] [facility] Last Admin: 09/27/17 08:05 Dose: 0.5 mg Furosemide (Lasix) 40 mg IVP DAILY [facility] Last Admin: 09/27/17 09:20 Dose: 40 mg Vancomycin HCl (Vancomycin 1gm) 1 gm in 250 mls @ 167 mls/hr IVPB BID [facility] PRN Reason: Protocol Last Admin: 09/27/17 09:22 Dose: 167 mls/hr Cefepime HCl (Maxipime 2gm) 2 gm in 100 mls @ 100 mls/hr IVPB Q8 [facility] PRN Reason: Protocol Stop: 09/30/17 22:01 Last Admin: 09/27/17 05:10 Dose: 100 mls/hr Heparin Sodium/Sodium Chloride (Heparin 39223 Units/250ml 1/2 Normal Saline) 25 ,000 units in 250 mls @ 8.073 mls/hr IV .Q24H [facility]; 14 UNITS/KG/HR PRN Reason: Protocol Last Admin: 09/27/17 09:19 Dose: 14 units/kg/hr, 8.073 mls/hr Doxycycline Hyclate 100 mg/ (Sodium Chloride) 100 mls @ 100 mls/hr IVPB Q12 [facility] PRN Reason: Protocol Potassium Chloride (Potassium Chloride 10 Meq/100 Ml) 10 meq in 100 mls @ 50 mls/hr IVPB ONCE ONE Stop: 09/27/17 12:46 Last Admin: 09/27/17 11:12 Dose: 50 mls/hr Methylprednisolone (Solu-Medrol) 30 mg IVP Q12 [facility] Last Admin: 09/27/17 09:21 Dose: 30 mg Pantoprazole Sodium (Protonix Inj) 40 mg IVP DAILY [facility] Last Admin: 09/27/17 09:21 Dose: 40 mg Physical Exam - Constitutional Appears: Chronically Ill - Head Exam Head Exam: NORMAL INSPECTION - Eye Exam Eye Exam: Normal appearance, PERRL - ENT Exam ENT Exam: Mucous Membranes Moist, Normal Oropharynx - Neck Exam Neck exam: Positive for: Normal Inspection - Respiratory Exam Respiratory Exam: Decreased Breath Sounds - Cardiovascular Exam Cardiovascular Exam: Irregular Rhythm, +S1, +S2 - GI/Abdominal Exam GI & Abdominal Exam: Normal Bowel Sounds, Soft - Extremities Exam Extremities exam: Positive for: normal capillary refill, normal inspection - Back Exam Back exam: vertebral tenderness - Neurological Exam Neurological exam: Alert - Skin Skin Exam: Dry, Pallor - Additional Findings Additional findings: Palliative performance scale rating 30 % Results - Vital Signs Recent Vital Signs: Last Vital Signs Temp 97.8 F 09/27/17 06:00 Pulse 90 09/27/17 11:04 Resp 17 09/27/17 06:00 BP 104/56 L 09/27/17 09:20 Pulse Ox 100 09/27/17 06:00 - Labs Result Diagrams: 09/27/17 06:00 09/27/17 06:00 Labs: Laboratory Results - last 24 hr 09/25/17 09/25/17 09/26/17 19:20 19:20 06:00 WBC RBC Hgb Hct MCV MCH MCHC RDW Plt Count MPV Gran % Lymph % (Auto) [place] % (Auto) Eos % (Auto) Baso % (Auto) Gran # Lymph # [place] # Eos # Baso # PT INR APTT pCO2 pO2 HCO3 ABG pH ABG Total CO2 ABG O2 Saturation ABG O2 Content ABG Base Excess ABG Hemoglobin ABG Carboxyhemoglobin POC ABG HHb (Measured) ABG Methemoglobin ABG O2 Capacity Hgb O2 Saturation FiO2 Sodium Potassium Chloride Carbon Dioxide Anion Gap BUN Creatinine Est GFR ( Amer) Est GFR (Non-Af Amer) Random Glucose Calcium Total Bilirubin AST ALT Alkaline Phosphatase Total Protein Albumin Globulin Albumin/Globulin Ratio Procalcitonin 1.00 H Prolactin 29.4 H Ur L.pneumophila Ag Negative 09/26/17 09/27/17 09/27/17 16:35 00:20 05:25 WBC RBC Hgb Hct MCV MCH MCHC RDW Plt Count MPV Gran % Lymph % (Auto) [place] % (Auto) Eos % (Auto) Baso % (Auto) Gran # Lymph # [place] # Eos # Baso # PT INR APTT 252.4 H* 164.1 H* pCO2 51 H pO2 157.0 H HCO3 25.1 ABG pH 7.30 L ABG Total CO2 26.7 ABG O2 Saturation 100.2 H ABG O2 Content 12.4 L ABG Base Excess -1.5 ABG Hemoglobin 8.8 L ABG Carboxyhemoglobin 1.8 H POC ABG HHb (Measured) -0.2 L ABG Methemoglobin 0.9 ABG O2 Capacity 12.4 L Hgb O2 Saturation 97.5 FiO2 60.0 Sodium Potassium Chloride Carbon Dioxide Anion Gap BUN Creatinine Est GFR ( Amer) Est GFR (Non-Af Amer) Random Glucose Calcium Total Bilirubin AST ALT Alkaline Phosphatase Total Protein Albumin Globulin Albumin/Globulin Ratio Procalcitonin Prolactin Ur L.pneumophila Ag 09/27/17 09/27/17 09/27/17 06:00 06:00 06:00 WBC 7.2 D RBC 3.06 L Hgb 9.8 L Hct 29.2 L MCV 95.4 MCH 32.0 MCHC 33.6 RDW 17.0 H Plt Count 181 MPV 9.9 Gran % 88.7 H Lymph % (Auto) 8.5 L [place] % (Auto) 2.7 Eos % (Auto) 0.0 L Baso % (Auto) 0.1 Gran # 6.34 Lymph # 0.6 L [place] # 0.2 Eos # 0.0 Baso # 0.01 PT 11.8 INR 1.03 APTT pCO2 pO2 HCO3 ABG pH ABG Total CO2 ABG O2 Saturation ABG O2 Content ABG Base Excess ABG Hemoglobin ABG Carboxyhemoglobin POC ABG HHb (Measured) ABG Methemoglobin ABG O2 Capacity Hgb O2 Saturation FiO2 Sodium 140 Potassium 3.5 L Chloride 106 Carbon Dioxide 24 Anion Gap 14 BUN 24 H Creatinine 0.7 Est GFR ( Amer) > 60 Est GFR (Non-Af Amer) > 60 Random Glucose 74 Calcium 8.7 Total Bilirubin 0.5 AST 36 D ALT 40 Alkaline Phosphatase 44 Total Protein 5.5 L Albumin 2.7 L Globulin 2.8 Albumin/Globulin Ratio 1.0 L Procalcitonin Prolactin Ur L.pneumophila Ag 09/27/17 07:05 WBC RBC Hgb Hct MCV MCH MCHC RDW Plt Count MPV Gran % Lymph % (Auto) [place] % (Auto) Eos % (Auto) Baso % (Auto) Gran # Lymph # [place] # Eos # Baso # PT INR APTT 84.9 H pCO2 pO2 HCO3 ABG pH ABG Total CO2 ABG O2 Saturation ABG O2 Content ABG Base Excess ABG Hemoglobin ABG Carboxyhemoglobin POC ABG HHb (Measured) ABG Methemoglobin ABG O2 Capacity Hgb O2 Saturation FiO2 Sodium Potassium Chloride Carbon Dioxide Anion Gap BUN Creatinine Est GFR ( Amer) Est GFR (Non-Af Amer) Random Glucose Calcium Total Bilirubin AST ALT Alkaline Phosphatase Total Protein Albumin Globulin Albumin/Globulin Ratio Procalcitonin Prolactin Ur L.pneumophila Ag Assessment & Plan - Assessment and Plan (Free Text) Assessment: 76 year old female with history of COPD,HTN, A Fib, cervical spine stenosis, L1 & L2 compression fractures, RLL lung mass who is admitted with pneumonia, NSTEMI , s/p cardiopulmonary arrest. The patient is alert, able to follow commands. Prior to extubation both Dr. Brantley and Lynette spoke with patient. She nodded her head "No" when asked if she wanted to be intubated again in future or have CPR performed. She was asked this question more than once and was consistent in her response. After being extubated, Dr. Morales and Lynette spoke with the patient again. She is now unsure as to wether she wants CPR or intubation in the future. Burdens of CPR/intubation explained. Patient will remain Full code status. Reassured. Will revisit advance care planning discursion in the presence of patients daughters. Time spent in advance care panning discussion, 20 minutes Plan: Advance care planning
--- NOTE | 2017-09-27 12:05 | RAD ---
HISTORY: ETT COMPARISON: Comparison chest dated 09/26/2017 FINDINGS: In situ ETT, tip of which lies approximately 7 cm above ryan. Situ feeding tube tip of which overlies left parasagittal upper abdomen. LUNGS: Re- demonstrated are patchy infiltrate changes seen in the right mid to lower and left lower lung feels. Bilateral effusions are felt be present. No obvious pneumothorax. Suspect underlying emphysematous changes. PLEURA: As above. No pneumothorax apparent. CARDIOVASCULAR: Cardiac silhouette stable. OSSEOUS STRUCTURES: Re- demonstrated deformity and right shoulder girdle with secondary DJD. VISUALIZED UPPER ABDOMEN: Normal. OTHER FINDINGS: None. IMPRESSION: Support lines and tubes as above Re- demonstrated are patchy infiltrate changes seen in the right mid to lower and left lower lung feels. Bilateral effusions are felt be present. No obvious pneumothorax. Suspect underlying emphysematous changes.
--- NOTE | 2017-09-27 18:38 | PN ---
DATE: 09/27/2017 CARDIOLOGY FOLLOWUP NOTE SUBJECTIVE: The patient was extubated today. She no longer wants to be a DNR and wants to continue full aggressive care. OBJECTIVE: On physical exam, VITAL SIGNS: Blood pressure is 104/43, heart rate in the 70s. NECK: Negative JVD. LUNGS: Bilateral rhonchi. HEART: Reveals S1 and S2 with 2/6 systolic ejection murmur. EXTREMITIES: Without edema. LABORATORY DATA: BUN and creatinine are 14 and 0.7, hemoglobin is 9.8. IMPRESSION: 1. Status post cardiopulmonary arrest. 2. Non-ST elevation myocardial infarction. 3. History of mild aortic stenosis. 4. Documented critical lesions in the circumflex artery. 5. Chronic obstructive pulmonary disease. Given these findings, we will allow the patient to recover from her most recent event. We will reevaluate tomorrow aggressive to be in terms of her coronary artery disease and her aortic valve. Sanju Rich MD
[2017-09-27] MEDS: Morphine 2 mg/ml ISec IVP PRN (21:01)
--- NOTE | 2017-09-28 01:21 | PN ---
DATE: 09/27/2017 SUBJECTIVE: The patient is in bed, in no acute distress, nontoxic. PHYSICAL EXAMINATION: VITAL SIGNS: Temperature is 98, blood pressure is 104/40, and respiratory rate is 18. HEENT: Unremarkable. NECK: Supple. LUNGS: Have decreased breath sounds. HEART: Normal S1 and S2. ABDOMEN: Soft. LABORATORY DATA: There is a white count of 7.2, hemoglobin of 9, platelets of 181. Chemistry reveals BUN of 24, creatinine of 0.7. LFTs are noted. Urinalysis is noted. Serology is noted. Blood cultures are negative, urine cultures are negative. Sputum cultures are pending. ASSESSMENT AND PLAN: This is a 76-year-old female, who was seen earlier this morning with, 1. Severe sepsis and healthcare-associated hospital-acquired possible gram-positive cocci and possible gram-negative chapito right upper lobe pneumonia with an elevated procalcitonin in a patient with acute diastolic congestive heart failure on top of chronic congestive heart failure and as for the blood and urine cultures are negative, urine for Legionella antigen is negative, influenza is pending, and the patient is on doxycycline and cefepime day #3 and vancomycin. We will follow with you. Jean Dawn MD
--- NOTE | 2017-09-28 01:58 | PN ---
DATE: SUBJECTIVE: The patient is a 76-year-old seen and examined, and was just extubated on BiPAP, awake and alert, able to make eye contact. PHYSICAL EXAMINATION VITAL SIGNS: She is afebrile, pulse 91, respirations 35, blood pressure 104/43. LUNGS: Bilateral fair airflow. No rhonchi. Lower lung region has soft crackle. HEART: S1 and S2 audible. NEUROLOGIC: She is awake and alert, able to communicate. LABORATORY DATA: WBC 7.2, hemoglobin 9.8, hematocrit 29, and platelet of 181. PTT is 86. Chemistry; sodium 140, potassium 3.5, chloride 106, CO2 of 24, BUN 34, creatinine of 0.7, and blood sugar of 74. X-ray of chest infiltrate seen in the right mid and lower left lung kay. ASSESSMENT: 1. Respiratory failure. 2. Chronic obstructive pulmonary disease exacerbation. 3. Multilobar pneumonia. 4. Chronic atrial fibrillation. 5. Generalized weakness. 6. Electrolyte imbalance. 7. Hypokalemia. 8. Chronic anemia. PLAN: The patient is currently DNR. We will continue nebulizer treatment. Continue on IV fluids and continue on IV antibiotics. Currently, she is on doxycycline. She is on heparin. We will supplement potassium. She is on IV steroid and we will follow up the patient in the a.m. We will follow up electrolyte in a.m. Hellen Shipman MD
[2017-09-28] MEDS: Acetylcysteine 20% Inhal Soln (4ml) IH SCH ×4 (02:43→21:05)
[2017-09-28] MEDS: Albuterol 0.083% Inhal Sol (2.5 mg/3 mL) UD IH SCH ×4 (02:43→21:05)
[2017-09-28 03:30] LABS: BASO # 0.01 K/mm3 (0.0-2.0); BASO % 0.1 % (0.0-3.0); GRAN # 6.09 (1.4-6.5); GRAN % 91.1 % (50.0-68.0); HEMOGLOBIN 9.4 g/dL (12.0-16.0); LYMPH # 0.3 (1.2-3.4); LYMPH % 5.1 % (22.0-35.0); MEAN CELL VOLUME 97.6 fl (80.0-105.0); MEAN CORPUSCULAR HEMOGLOBIN 31.9 pg (25.0-35.0); MEAN CORPUSCULAR HGB CONC 32.6 g/dl (31.0-37.0); MEAN PLATELET VOLUME 9.4 fl (7.0-11.0); MONO # 0.3 (0.1-0.6); MONO % 3.7 % (1.0-6.0); RBC 2.95 10^6/uL (3.5-6.1); RED CELL DISTRIBUTION WIDTH 16.3 % (11.5-14.5); WHITE BLOOD COUNT 6.7 10^3/ul (4.5-11.0)
[2017-09-28 06:50] LABS: ALBUMIN 2.9 g/dL (3.0-4.8); ALT/SGPT 42 U/L (7-56); AST/SGOT 38 U/L (14-36); BLOOD UREA NITROGEN 31 mg/dL (7-21); CALCIUM 9.2 mg/dL (8.4-10.5); GFR AFRICAN-AMERICAN > 60; GFR NON-AFRICAN AMERICAN > 60
[2017-09-28] MEDS: Cefepime IV 2 gm in NS 2 GM/100 ML BAG IVPB SCH ×3 (07:00→21:01)
[2017-09-28] MEDS: Budesonide 0.5 mg/2 ml Inhal Susp UD IH SCH ×2 (07:18→21:05)
--- NOTE | 2017-09-28 07:50 | PN ---
DATE: 09/28/2017(620am-715am) PULMONARY PROGRESS NOTE SUBJECTIVE: The patient is now extubated. She is moderately short of breath. She appears very weak. PHYSICAL EXAMINATION: VITAL SIGNS: Her temperature is 98.6, pulse is 89, respirations are 26/28, and blood pressure is 119/61. Oxygen saturation on nasal cannula is 97%. HEENT: Normocephalic and atraumatic. NECK: No JVD. CARDIOVASCULAR: Systolic ejection murmur at the lower left sternal border. Positive S3 gallop LUNGS: Decreased breath sounds with crackles at both bases (left worse than right). Mild bilateral rhonchi. No wheezing. EXTREMITIES: Positive for mild edema. No cyanosis or clubbing. Calves are nontender to palpation. GASTROINTESTINAL: Abdomen is soft, nontender and nondistended. Bowel sounds are positive. SKIN: No acute rash. NEUROLOGIC: Exam is limited at the present time. PERTINENT LABORATORY DATA Pertinent laboratory data:. Chest x-ray was done this morning and reviewed. There is increasing opacification noted in the left lower lung. Findings may be consistent with atelectasis and/or effusion. IMPRESSION: 1. Status post cardiopulmonary resuscitation. 2. Respiratory failure. 3. Advanced chronic obstructive pulmonary disease. 4. Congestive heart failure. 5. Probable underlying pneumonia. 6. Non-ST elevation myocardial infarction. 7. Right lower lobe lung mass. 8. Atelectasis versus effusion - left lower lobe. PLAN: The patient is now extubated. She is moderately short of breath. She is very weak appearing. I discussed the case with the night nurse at length. The night nurse stated that the patient is doing poorly overall. I have also reviewed the chest x-ray. The chest x-ray reveals increasing opacification in the left lower lobe. Again, these findings may be consistent with atelectasis, effusion or both. I will discuss the chest x-ray findings with the ICU team. They may be able to proceed with ultrasound to see if an effusion is present. I will continue with the nebulizer treatments, chest percussion therapy and suctioning. for now Overall status/prognosis for this patient remains very poor. All are aware. The patient is now a DNR/DNI status. Again, I will discuss the above with the entire ICU team the next few moments. I will also discuss the above with the attending physician. Iván Keys MD [facility] # [id number] MINDY
--- NOTE | 2017-09-28 08:20 | CP.PCM.PN ---
<Mora Morales - Last Filed: 09/28/17 10:12> Subjective - Date & Time of Evaluation Date of Evaluation: 09/28/17 Time of Evaluation: 08:10 - Subjective Subjective: ICU Progress Note for Xochitl Barton PGY2 Patient seen and examined at bedside. As per nursing staff, patient refused BiPAP overnight. She is resting comfortably in bed. Patient complains of neck pain, which is chronic. She denies chest pain, shortness of breath, fever/chills , numbness/tingling, nausea/vomiting/diarrhea, constipation, dysuria. Objective - Vital Signs/Intake and Output Vital Signs (last 24 hours): Temp Pulse Resp BP Pulse Ox 98.6 F 89 35 H 133/58 L 97 09/28/17 04:00 09/28/17 04:39 09/27/17 21:50 09/28/17 07:34 09/27/17 21:50 Intake and Output: 09/28/17 09/28/17 06:59 18:59 Intake Total 534 Output Total 700 Balance -166 - Medications Medications: Current Medications Acetylcysteine (Acetylcysteine 20%) 4 ml IH [id number] [facility] Last Admin: 09/28/17 07:18 Dose: 4 ml Albuterol Sulfate (Albuterol 0.083% Inhal Lesley (2.5 Mg/3 Ml) Ud) 2.5 mg IH [id number] [facility] Last Admin: 09/28/17 07:18 Dose: 2.5 mg Aspirin (Ecotrin) 81 mg PO DAILY [facility] Last Admin: 09/27/17 09:18 Dose: 81 mg Atorvastatin Calcium (Lipitor) 40 mg PO HS [facility] Last Admin: 09/27/17 21:07 Dose: Not Given Budesonide (Pulmicort Respules) 0.5 mg IH [id number] [facility] Last Admin: 09/28/17 07:18 Dose: 0.5 mg Furosemide (Lasix) 40 mg IVP DAILY [facility] Last Admin: 09/27/17 09:20 Dose: 40 mg Cefepime HCl (Maxipime 2gm) 2 gm in 100 mls @ 100 mls/hr IVPB Q8 [facility] PRN Reason: Protocol Stop: 09/30/17 22:01 Last Admin: 09/28/17 07:00 Dose: 100 mls/hr Heparin Sodium/Sodium Chloride (Heparin 50849 Units/250ml 1/2 Normal Saline) 25 ,000 units in 250 mls @ 8.073 mls/hr IV .Q24H [facility]; 14 UNITS/KG/HR PRN Reason: Protocol Last Titration: 09/27/17 21:00 Dose: 12 units/kg/hr, 6.92 mls/hr Doxycycline Hyclate 100 mg/ (Sodium Chloride) 100 mls @ 100 mls/hr IVPB Q12 [facility] PRN Reason: Protocol Last Admin: 09/27/17 21:23 Dose: 100 mls/hr Vancomycin HCl (Vancomycin 1gm) 1 gm in 250 mls @ 167 mls/hr IVPB Q12 [facility] PRN Reason: Protocol Last Admin: 09/27/17 21:25 Dose: 167 mls/hr Potassium Chloride (Potassium Chloride 10 Meq/100 Ml) 10 meq in 100 mls @ 50 mls/hr IVPB ONCE ONE Stop: 09/28/17 09:12 Last Admin: 09/28/17 07:35 Dose: 50 mls/hr Methylprednisolone (Solu-Medrol) 30 mg IVP Q12 [facility] Last Admin: 09/27/17 21:27 Dose: 30 mg Morphine Sulfate (Morphine) 1 mg IVP Q4H PRN PRN Reason: Pain, severe (8-10) Last Admin: 09/27/17 21:01 Dose: 1 mg Pantoprazole Sodium (Protonix Inj) 40 mg IVP DAILY [facility] Last Admin: 09/27/17 09:21 Dose: 40 mg - Labs Labs: 09/28/17 03:05 09/28/17 05:20 PT 11.8 SECONDS (9.4-12.5) 09/27/17 06:00 INR 1.03 (0.93-1.08) 09/27/17 06:00 APTT 76.1 Seconds (25.1-36.5) H 09/28/17 03:05 - Constitutional Appears: No Acute Distress, Older Than Stated Age - Head Exam Head Exam: ATRAUMATIC, NORMAL INSPECTION, NORMOCEPHALIC - Eye Exam Eye Exam: Normal appearance, PERRL Pupil Exam: PERRL - ENT Exam ENT Exam: Mucous Membranes Dry - Neck Exam Neck Exam: Tenderness (to palpation ) Additional comments: sutures in place- clean and dry. - Respiratory Exam Respiratory Exam: Decreased Breath Sounds (on L ), Rales (on R base ), NORMAL BREATHING PATTERN. absent: Rhonchi, Stridor - Cardiovascular Exam Cardiovascular Exam: REGULAR RHYTHM, +S1, +S2, Murmur (systolic ejection murmur ). absent: Gallop, Rubs - GI/Abdominal Exam GI & Abdominal Exam: Soft, Normal Bowel Sounds. absent: Rigid, Tenderness, Mass , Rebound - Extremities Exam Extremities Exam: Normal Inspection. absent: Calf Tenderness, Pedal Edema - Neurological Exam Neurological Exam: Alert, Awake, CN II-XII Intact, Oriented x3 Neuro motor strength exam: Left Upper Extremity: 3, Right Upper Extremity: 3, Left Lower Extremity: 5, Right Lower Extremity: 5 - Psychiatric Exam Psychiatric exam: Normal Affect, Normal Mood - Skin Skin Exam: Dry, Warm Assessment and Plan - Assessment and Plan (Free Text) Assessment: This is a 76yo F with PMH chronic a.fib, chronic anemia, CAD, HLD, severe COPD, CHF, cervical spine radicuopathy s/p fusion with residual b/l arm weakness admitted for respiratory failure secondary to pneumonia and CHF exacerbation s/ p cardiac arrest with ROSC. She is also found to have NSTEMI as well as R lower lung mass. Patient is extubated and off of sedation. Plan: Neuro: Awake, alert- off of sedation Cervical radiculopathy s/p diskectomy Neuro consulted per PMD- added neurontin but pt refused medication Continue pain control Maintain normothermia CV: Hx of a.fib and CHF NSTEMI Pt on Hep drip- consider placing pt on Eliquis Continue Lasix IVP Monitor I&O Maintain MAP >65 Echo showed EF of 69% with severe aortic stenosis, mild MR, mod pulm HTN Cardio Consulted- recs appreciated Pulm: Pt extubated and on NC Pt refused BiPAP at night Today CXR showed increased effusion in L lung v atelectasis Pulm on consult- recommended Pulmicort, Albuterol, Mucomyst and chest physiotherapy Will give 20mg lasix IVP Hx of COPD R lung mass found on CXR Continue Solumedrol- will wean as tolerated Aspiration precaution Maintain SpO2>92% GI: Pt did not pass swallow eval Consider placing Dobhoff for tube feeds and PO meds Continue GI ppx Heme: Hx of chronic anemia Hgb stable- no overt signs of bleeding Nephro: Mild hypokalemia, K: 3.4 Will continue to monitor electrolytes and replace as needed ID: Sepsis secondary to HCAP Pt is Afebrile without leukocytosis ID consulted- recs appreciated Continue Cefepime, Doxy and Vanco Legionella and S. pneumo negative Influenza pending Endo: Maintain euglycemia GI ppx: PTX DVT ppx: Heparin drip Dispo: Palliative is on consult. Patient is DNR/DNI as per POLST form. Prognosis is guarded. Patient is hemodynamically stable at this time and will be transferred to telemetry. Case seen, discussed and reviewed with attending. Xochitl Morales PGY2 <Deven Weems - Last Filed: 09/28/17 16:29> Objective - Vital Signs/Intake and Output Vital Signs (last 24 hours): Temp Pulse Resp BP Pulse Ox 98.4 F 92 H 35 H 119/55 L 97 09/28/17 08:00 09/28/17 14:09 09/27/17 21:50 09/28/17 14:09 09/27/17 21:50 Intake and Output: 09/28/17 09/28/17 06:59 18:59 Intake Total 534 Output Total 700 Balance -166 - Medications Medications: Current Medications Acetylcysteine (Acetylcysteine 20%) 4 ml IH [id number] [facility] Last Admin: 09/28/17 13:00 Dose: 4 ml Albuterol Sulfate (Albuterol 0.083% Inhal Lesley (2.5 Mg/3 Ml) Ud) 2.5 mg IH [id number] [facility] Last Admin: 09/28/17 13:01 Dose: 2.5 mg Alprazolam (Xanax) 0.25 mg PO TID PRN; Protocol PRN Reason: Anxiety Stop: 10/05/17 14:01 Aspirin (Ecotrin) 81 mg PO DAILY [facility] Last Admin: 09/28/17 09:10 Dose: Not Given Atorvastatin Calcium (Lipitor) 40 mg PO HS [facility] Last Admin: 09/27/17 21:07 Dose: Not Given Budesonide (Pulmicort Respules) 0.5 mg IH [id number] [facility] Last Admin: 09/28/17 07:18 Dose: 0.5 mg Diltiazem HCl (Cardizem) 60 mg PO TID [facility] Last Admin: 09/28/17 14:09 Dose: 60 mg Doxycycline Hyclate (Doryx) 100 mg PO Q12 [facility] PRN Reason: Protocol Stop: 10/07/17 22:01 Duloxetine HCl (Cymbalta) 30 mg PO HS [facility] Furosemide (Lasix) 40 mg IVP DAILY [facility] Last Admin: 09/28/17 09:10 Dose: 40 mg Cefepime HCl (Maxipime 2gm) 2 gm in 100 mls @ 100 mls/hr IVPB Q8 [facility] PRN Reason: Protocol Stop: 09/30/17 22:01 Last Admin: 09/28/17 14:09 Dose: 100 mls/hr Heparin Sodium/Sodium Chloride (Heparin 68104 Units/250ml 1/2 Normal Saline) 25 ,000 units in 250 mls @ 8.073 mls/hr IV .Q24H [facility]; 14 UNITS/KG/HR PRN Reason: Protocol Last Titration: 09/27/17 21:00 Dose: 12 units/kg/hr, 6.92 mls/hr Methylprednisolone (Solu-Medrol) 30 mg IVP Q12 [facility] Last Admin: 09/28/17 09:11 Dose: 30 mg Morphine Sulfate (Morphine) 1 mg IVP Q4H PRN PRN Reason: Pain, severe (8-10) Last Admin: 09/28/17 14:25 Dose: 1 mg Pantoprazole Sodium (Protonix Inj) 40 mg IVP DAILY [facility] Last Admin: 09/28/17 09:10 Dose: 40 mg Saliva Substitute (Saliva Substitute) 1 ml PO BID [facility] Last Admin: 09/28/17 12:00 Dose: 1 ml - Labs Labs: 09/28/17 03:05 09/28/17 05:20 PT 11.8 SECONDS (9.4-12.5) 09/27/17 06:00 INR 1.03 (0.93-1.08) 09/27/17 06:00 APTT 75.9 Seconds (25.1-36.5) H 09/28/17 09:41 Attending/Attestation - Attestation I have personally seen and examined this patient.: Yes I have fully participated in the care of the patient.: Yes I have reviewed all pertinent clinical information, including history, physical exam and plan: Yes Notes (Text): 09/28/17 16:28 76 yo female with now resolved respiratory failure, s/p extubation. cont abx, steroid taper, bronchodilators, OOB to chair, IS, chest PT, PT, pulm toilet, repeat speech and swallow eval. ccm time 40 min
[2017-09-28] MEDS: Vancomycin 1gm in NS 250ml 1 GM/250 ML BAG IVPB SCH (09:11)
[2017-09-28] MEDS: MethylPREDNISolone 40 mg Vial IVP SCH ×2 (09:11→21:00)
--- NOTE | 2017-09-28 09:16 | RAD ---
HISTORY: follow up COMPARISON: Chest x-ray performed 09/27/17 TECHNIQUE: Chest, one view. FINDINGS: LUNGS: Diffuse opacification of the left steve thorax minimal aeration at the left lung apex. Hazy opacity within the right hemithorax may reflect layering pleural effusion and associated consolidation. No definite pneumothorax. CARDIOVASCULAR: Obscured. OSSEOUS STRUCTURES: Degenerative changes. VISUALIZED UPPER ABDOMEN: Unremarkable. OTHER FINDINGS: None. IMPRESSION: Diffuse opacification of the left steve thorax minimal aeration at the left lung apex. Hazy opacity within the right hemithorax may reflect layering pleural effusion and associated consolidation.
[2017-09-28] MEDS: Morphine 2 mg/ml ISec IVP PRN ×2 (09:38→14:25)
[2017-09-28] MEDS ORDERED: Magnesium Sulfate 1 gm in D5W 1 GM/100 ML BAG IVPB ONE (11:20)
[2017-09-28] MEDS: Saliva Substitute 44.3 ML PO SCH ×2 (12:00→17:29)
--- NOTE | 2017-09-28 13:01 | CP.PCM.PN ---
<Pam Levy - Last Filed: 09/28/17 13:02> Subjective - Date & Time of Evaluation Date of Evaluation: 09/28/17 Time of Evaluation: 09:00 - Subjective Subjective: Neurology PGY-[address] Presley Pt states that gabapentin will give her hallucination. Pt states that she has occasional R arm pain but currently is pain free Objective - Vital Signs/Intake and Output Vital Signs (last 24 hours): Temp Pulse Resp BP Pulse Ox 98.6 F 88 35 H 132/65 97 09/28/17 04:00 09/28/17 08:08 09/27/17 21:50 09/28/17 09:10 09/27/17 21:50 Intake and Output: 09/28/17 09/28/17 06:59 18:59 Intake Total 534 Output Total 700 Balance -166 - Medications Medications: Current Medications Acetylcysteine (Acetylcysteine 20%) 4 ml IH [id number] [facility] Last Admin: 09/28/17 07:18 Dose: 4 ml Albuterol Sulfate (Albuterol 0.083% Inhal Lesley (2.5 Mg/3 Ml) Ud) 2.5 mg IH [id number] [facility] Last Admin: 09/28/17 07:18 Dose: 2.5 mg Alprazolam (Xanax) 0.25 mg PO TID PRN; Protocol PRN Reason: Anxiety Stop: 10/05/17 14:01 Aspirin (Ecotrin) 81 mg PO DAILY [facility] Last Admin: 09/28/17 09:10 Dose: Not Given Atorvastatin Calcium (Lipitor) 40 mg PO HS [facility] Last Admin: 09/27/17 21:07 Dose: Not Given Budesonide (Pulmicort Respules) 0.5 mg IH [id number] [facility] Last Admin: 09/28/17 07:18 Dose: 0.5 mg Diltiazem HCl (Cardizem) 60 mg PO TID [facility] Duloxetine HCl (Cymbalta) 30 mg PO HS [facility] Furosemide (Lasix) 40 mg IVP DAILY [facility] Last Admin: 09/28/17 09:10 Dose: 40 mg Cefepime HCl (Maxipime 2gm) 2 gm in 100 mls @ 100 mls/hr IVPB Q8 [facility] PRN Reason: Protocol Stop: 09/30/17 22:01 Last Admin: 09/28/17 07:00 Dose: 100 mls/hr Heparin Sodium/Sodium Chloride (Heparin 03711 Units/250ml 1/2 Normal Saline) 25 ,000 units in 250 mls @ 8.073 mls/hr IV .Q24H [facility]; 14 UNITS/KG/HR PRN Reason: Protocol Last Titration: 09/27/17 21:00 Dose: 12 units/kg/hr, 6.92 mls/hr Doxycycline Hyclate 100 mg/ (Sodium Chloride) 100 mls @ 100 mls/hr IVPB Q12 [facility] PRN Reason: Protocol Last Admin: 09/28/17 09:12 Dose: 100 mls/hr Vancomycin HCl (Vancomycin 1gm) 1 gm in 250 mls @ 167 mls/hr IVPB Q12 [facility] PRN Reason: Protocol Last Admin: 09/28/17 09:11 Dose: 167 mls/hr Methylprednisolone (Solu-Medrol) 30 mg IVP Q12 [facility] Last Admin: 09/28/17 09:11 Dose: 30 mg Morphine Sulfate (Morphine) 1 mg IVP Q4H PRN PRN Reason: Pain, severe (8-10) Last Admin: 09/28/17 09:38 Dose: 1 mg Pantoprazole Sodium (Protonix Inj) 40 mg IVP DAILY [facility] Last Admin: 09/28/17 09:10 Dose: 40 mg Saliva Substitute (Saliva Substitute) 1 ml PO BID [facility] - Labs Labs: 09/28/17 03:05 09/28/17 05:20 PT 11.8 SECONDS (9.4-12.5) 09/27/17 06:00 INR 1.03 (0.93-1.08) 09/27/17 06:00 APTT 75.9 Seconds (25.1-36.5) H 09/28/17 09:41 - Constitutional Appears: No Acute Distress - Head Exam Head Exam: ATRAUMATIC, NORMAL INSPECTION, NORMOCEPHALIC Additional comments: bandage on nose. with NC - Eye Exam Eye Exam: EOMI, Normal appearance, PERRL. absent: Scleral icterus Pupil Exam: NORMAL ACCOMODATION - ENT Exam ENT Exam: Mucous Membranes Moist - Neck Exam Additional comments: supple - Respiratory Exam Respiratory Exam: Clear to Ausculation Bilateral, Rhonchi, NORMAL BREATHING PATTERN. absent: Wheezes - Cardiovascular Exam Cardiovascular Exam: REGULAR RHYTHM, +S1, +S2, Murmur - GI/Abdominal Exam GI & Abdominal Exam: Soft. absent: Tenderness - Neurological Exam Neurological Exam: Alert, Awake, CN II-XII Intact Additional comments: CN II-XII Intact Speech: Hypophonic voice. Hoarseness improves Mental: able to follow commands Motor: move all extremities, good hand work order clerk b/l. Neck is rotated to left. ROM limited s/p surgery Sensory: intact Reflex: 2+ thoughout except 1+ ankles Assessment and Plan - Assessment and Plan (Free Text) Plan: Consult: Cervical radiculopathy Ms Dalila Coles, 76 F, has a recent cervical spine diskectomy due to C4 cord compression on 09/08/17 and went to [facility] rehab. She is a heavy smoker with PMHx of chronic atrial fibrillation, COPD, hypertension, hyperlipidemia, anemia and compression fracture of L1/L2. She was admitted to the hospital for HCAP. Patient has a code blue for asystole possibly due to CHF vs respiratory failure vs NSTEMI. Pt was ROSC after 90 seconds of CPR. Pt is now status post cardiopulmonary resuscitation, just extubated to bipap yesterday, currently on NC. Acute on chronic cervical radiculopathy s/p cervical spine diskectomy - cymbalta 30 HS for neuropathic pain - PT/OT eval for muscle stretching, therapeutic exercise and TENS unit - Continue underlying treatment of CHF and medical conditions - continue ASA 81 and Atorvastatin 40. s/r/d/w Dr. Presley <Odin Presley - Last Filed: 09/28/17 14:35> Objective - Vital Signs/Intake and Output Vital Signs (last 24 hours): Temp Pulse Resp BP Pulse Ox 98.4 F 92 H 35 H 119/55 L 97 09/28/17 08:00 09/28/17 14:09 09/27/17 21:50 09/28/17 14:09 09/27/17 21:50 Intake and Output: 09/28/17 09/28/17 06:59 18:59 Intake Total 534 Output Total 700 Balance -166 - Medications Medications: Current Medications Acetylcysteine (Acetylcysteine 20%) 4 ml IH [id number] [facility] Last Admin: 09/28/17 13:00 Dose: 4 ml Albuterol Sulfate (Albuterol 0.083% Inhal Lesley (2.5 Mg/3 Ml) Ud) 2.5 mg IH [id number] [facility] Last Admin: 09/28/17 13:01 Dose: 2.5 mg Alprazolam (Xanax) 0.25 mg PO TID PRN; Protocol PRN Reason: Anxiety Stop: 10/05/17 14:01 Aspirin (Ecotrin) 81 mg PO DAILY [facility] Last Admin: 09/28/17 09:10 Dose: Not Given Atorvastatin Calcium (Lipitor) 40 mg PO HS [facility] Last Admin: 09/27/17 21:07 Dose: Not Given Budesonide (Pulmicort Respules) 0.5 mg IH [id number] [facility] Last Admin: 09/28/17 07:18 Dose: 0.5 mg Diltiazem HCl (Cardizem) 60 mg PO TID [facility] Last Admin: 09/28/17 14:09 Dose: 60 mg Doxycycline Hyclate (Doryx) 100 mg PO Q12 [facility] PRN Reason: Protocol Stop: 10/07/17 22:01 Duloxetine HCl (Cymbalta) 30 mg PO HS [facility] Furosemide (Lasix) 40 mg IVP DAILY [facility] Last Admin: 09/28/17 09:10 Dose: 40 mg Cefepime HCl (Maxipime 2gm) 2 gm in 100 mls @ 100 mls/hr IVPB Q8 [facility] PRN Reason: Protocol Stop: 09/30/17 22:01 Last Admin: 09/28/17 14:09 Dose: 100 mls/hr Heparin Sodium/Sodium Chloride (Heparin 55651 Units/250ml 1/2 Normal Saline) 25 ,000 units in 250 mls @ 8.073 mls/hr IV .Q24H [facility]; 14 UNITS/KG/HR PRN Reason: Protocol Last Titration: 09/27/17 21:00 Dose: 12 units/kg/hr, 6.92 mls/hr Methylprednisolone (Solu-Medrol) 30 mg IVP Q12 [facility] Last Admin: 09/28/17 09:11 Dose: 30 mg Morphine Sulfate (Morphine) 1 mg IVP Q4H PRN PRN Reason: Pain, severe (8-10) Last Admin: 09/28/17 14:25 Dose: 1 mg Pantoprazole Sodium (Protonix Inj) 40 mg IVP DAILY [facility] Last Admin: 09/28/17 09:10 Dose: 40 mg Saliva Substitute (Saliva Substitute) 1 ml PO BID [facility] Last Admin: 09/28/17 12:00 Dose: 1 ml - Labs Labs: 09/28/17 03:05 09/28/17 05:20 PT 11.8 SECONDS (9.4-12.5) 09/27/17 06:00 INR 1.03 (0.93-1.08) 09/27/17 06:00 APTT 75.9 Seconds (25.1-36.5) H 09/28/17 09:41 Attending/Attestation - Attestation I have personally seen and examined this patient.: Yes I have fully participated in the care of the patient.: Yes I have reviewed all pertinent clinical information, including history, physical exam and plan: Yes
--- NOTE | 2017-09-28 14:15 | PN ---
DATE: 09/28/2017 SUBJECTIVE: The patient is in bed in no acute distress, and nontoxic. She was seen early this morning in the ICU 129, bed 1, comfortable. The patient is now on extubated. PHYSICAL EXAMINATION: VITAL SIGNS: On exam, temperature is 98, blood pressure is 130/70, and respiratory rate of 18. HEENT: Examination of HEENT is unremarkable. NECK: Supple. LUNGS: Have decreased breath sounds. HEART: Normal S1 and S2. GASTROINTESTINAL: Abdominal examination is soft. LABORATORY DATA: Laboratory examination is reviewed and Dr. Keys's note is reviewed and chest x-ray is reviewed. note is reviewed. The patient's white count of 6.7 today and hemoglobin of 10. Chemistries are noted. Last procalcitonin is 1.0. Urinalysis is noted and influenza is negative. Urine for Legionella antigen negative. Urine strep pneumoniae antigen is negative. Microbiology reveals blood cultures are negative and urine cultures are negative. Nasal MRSA is negative. The yeast in the sputum is noted. MEDICATIONS: Review of orders reveals the patient to be on doxycycline, cefepime and vancomycin. ASSESSMENT AND PLAN: This is a 76-year-old female with severe sepsis, healthcare-associated and hospital-acquired pneumonia with possible Gram-positive cocci, possible Gram-negative chapito and elevated procalcitonin in the patient with face of acute diastolic congestive heart failure on top of chronic congestive heart failure with negative blood and urine cultures. Currently on day number 4 of doxycycline and cefepime. We will discontinue the vancomycin and cultures are negative and nasal MRSA screen is negative. Today is day number 4 of cefepime with doxycycline. We will recommend 4 to 7 days, we will switch the o doxycycline to p.o. and complete therapy. Overall prognosis quite poor for this patient who appears much older than her stated age. Jean Dawn MD
--- NOTE | 2017-09-28 15:12 | PN ---
DATE: 09/28/2017 CARDIOLOGY FOLLOWUP SUBJECTIVE: The patient is awake in no respiratory distress, is weak. She had multiple episodes of narrow complex tachycardia, which is consistent with SVT. PHYSICAL EXAMINATION VITAL SIGNS: Blood pressure 132/65, heart rate is in the 80s. NECK: Negative JVD. LUNGS: Decreased breath sounds. HEART: Reveal S1, S2 EXTREMITIES: Without edema. LABORATORY: Hemoglobin is 9.4. Chemistries, BUN and creatinine 31 and 0.8. IMPRESSION: 1. Status post respiratory failure. 2. Status post [id number] myocardial infarction. 3. Lung mass. 4. Smm-DH-yohhtqufr myocardial infarction. 5. Coronary artery disease. 6. Severe chronic obstructive pulmonary disease. Given these findings, we will add Cardizem 60 t.i.d. There were no plans for angioplasty of her circumflex artery at this time. Sanju Rich MD
[2017-09-28] MEDS: Heparin25000 units/250ml 1/2NS 25,000 UNITS/250 ML BAG IV SCH (16:47)
--- NOTE | 2017-09-28 19:22 | PN ---
DATE: SUBJECTIVE: The patient is a 76-year-old seen and examined, lying in bed, seems to be comfortable. Awake and alert. Eating, swallowing evaluation and was recommended give her pureed diet. No acute shortness of breath. PHYSICAL EXAMINATION: VITAL SIGNS: She is afebrile, pulse 92, respirations 20, and blood pressure 119/55. LUNGS: Bilateral soft crackle at bases. HEART: S1 and S2 audible. Irregular rate control. ABDOMEN: Soft and nontender. No rebound. No guarding. NEUROLOGIC: She is awake, alert and oriented. Able to communicate. Has generalized weakness. EXTREMITIES: Bilateral legs, edema. LABORATORY DATA: WBC 6.7, hemoglobin 9.4, hematocrit 28.8, and platelets 172. PTT 75.9. Chemistry; sodium 142, potassium 3.4, chloride 106, CO2 of 27, BUN 31, creatinine 0.8 and blood sugar of 120. Troponin 0.14. Sputum has yeast. Blood cultures are negative. ASSESSMENT: 1. Bilateral community acquired pneumonia. 2. Status post cervical discectomy. 3. Chronic atrial fibrillation. 4. Hypertension. 5. Hyperlipidemia. 6. Chronic obstructive pulmonary disease. PLAN: Currently, the patient is on IV antibiotics that is doxycycline. She is on anxiolytic. She is getting nebulizer treatment. She is on heparin. She is on cefepime. Electrolyte will be monitored. We will followup the patient in a.m. Hellen Shipman MD
[2017-09-28] MEDS: Oxycodone/Acetaminophen 5/325 mg Tab PO PRN (20:57)
[2017-09-29] MEDS: Acetylcysteine 20% Inhal Soln (4ml) IH SCH ×4 (01:43→20:40)
[2017-09-29] MEDS: Albuterol 0.083% Inhal Sol (2.5 mg/3 mL) UD IH SCH ×4 (01:44→20:40)
[2017-09-29] MEDS: Cefepime IV 2 gm in NS 2 GM/100 ML BAG IVPB SCH ×3 (05:59→21:29)
[2017-09-29] MEDS: Budesonide 0.5 mg/2 ml Inhal Susp UD IH SCH ×2 (07:25→20:40)
[2017-09-29 07:26] LABS: BASO # 0.01 K/mm3 (0.0-2.0); BASO % 0.2 % (0.0-3.0); GRAN # 4.16 (1.4-6.5); GRAN % 90.1 % (50.0-68.0); LYMPH # 0.3 (1.2-3.4); LYMPH % 6.7 % (22.0-35.0); MEAN CELL VOLUME 97.5 fl (80.0-105.0); MEAN CORPUSCULAR HEMOGLOBIN 31.7 pg (25.0-35.0); MEAN CORPUSCULAR HGB CONC 32.5 g/dl (31.0-37.0); MEAN PLATELET VOLUME 10.1 fl (7.0-11.0); MONO # 0.1 (0.1-0.6); PLATELET COUNT 141 10^3/uL (120.0-450.0); RBC 2.84 10^6/uL (3.5-6.1); RED CELL DISTRIBUTION WIDTH 15.9 % (11.5-14.5); WHITE BLOOD COUNT 4.6 10^3/ul (4.5-11.0)
[2017-09-29 07:47] LABS: ALB/GLOB RATIO 1.1 (1.1-1.8); ALBUMIN 3.1 g/dL (3.0-4.8); ALT/SGPT 35 U/L (7-56); AST/SGOT 32 U/L (14-36); BLOOD UREA NITROGEN 35 mg/dL (7-21); CALCIUM 9.2 mg/dL (8.4-10.5); GFR AFRICAN-AMERICAN > 60; GFR NON-AFRICAN AMERICAN 54
[2017-09-29] MEDS ORDERED: Potassium Chloride 40 mEq/30 ml LIQ UD PO ONE (08:27)
[2017-09-29 08:35] LABS: BAND 2 % (0-2); LYMPHOCYTE 11 % (22.0-35.0); MONOCYTE 2 % (1.0-6.0); NEUTROPHIL 85 % (50.0-70.0); PLATELET ESTIMATE NORMAL (NORMAL)
[2017-09-29] MEDS: Oxycodone/Acetaminophen 5/325 mg Tab PO PRN ×2 (08:46→17:22)
--- NOTE | 2017-09-29 08:46 | PN ---
DATE: 09/29/2017(7ooam-750am) PULMONARY PROGRESS NOTE SUBJECTIVE: The patient appears much more comfortable this morning. She is not short of breath at rest. She remains extremely weak appearing. PHYSICAL EXAMINATION: VITAL SIGNS: Temperature is 98.8, pulse is 61, respirations are 16, and blood pressure is 112/43. Oxygen saturation on nasal cannula is 99%. HEENT: Normocephalic and atraumatic. NECK: No JVD. CARDIOVASCULAR: Systolic ejection murmur at the lower left sternal border. Positive S3 gallop. LUNGS: Improved breath sounds-- left lung. Decreased breath sounds with crackles at both bases. Less rhonchi. No wheezing. EXTREMITIES: Positive for mild edema. No cyanosis and no clubbing. Calves are nontender to palpation. GASTROINTESTINAL: Abdomen is soft, nontender and nondistended. Bowel sounds are positive. SKIN: No acute rash. NEUROLOGIC: Exam is limited at the present time. PERTINENT LABORATORY DATA: Chest x-ray was done this morning and reviewed. The chest x-ray is a very poor, rotated film. However, the x-ray does show increased aeration to the left lung. IMPRESSION 1. Status post cardiopulmonary resuscitation. 2. Respiratory failure. 3. Advanced chronic obstructive pulmonary disease. 4. Congestive heart failure. 5. Probable underlying pneumonia. 6. Non-ST elevation myocardial infarction. 7. Right lower lobe lung mass. 8. Atelectasis, effusion - left lower lobe. 9. Cardiac arrhythmias. PLAN: The patient remains off the ventilator. She is much more comfortable this morning. She is not short of breath. She remains very, very weak appearing. I did discuss the case with the night nurse at length. The night nurse stated that the patient had an uneventful night. I also discussed the case with the hospitalist medical director at length. Apparently, the hospitalist medical director has had numerous talks with the daughter (power of commonwealth attorney). The daughter/family are very well aware of the patient's overall very poor prognosis. They do not want any aggressive procedures done. I also discussed the case with the respiratory therapist at length. Apparently, the patient had multiple runs of supraventricular tachycardia yesterday, with oxygen desaturation. Obviously, she is very very frail at this point in time. On physical exam, there is less bronchospasm noted. I will continue the current nebulizer treatments and low-dose intravenous steroids for now. I will also continue with the aggressive pulmonary toilet and appreciate the respiratory therapy input. I did discuss the case again with the respiratory therapist today. Again, I did review the chest x-ray from this morning. It is a poor portable film, but does show increased aeration to the left lung. I will continue with the current pulmonary plan for now. Inputs by Infectious Diseases, Neurology, and Cardiology are noted. Overall status/prognosis for this patient remains very poor. All are aware. I will discuss the above with the entire ICU team in the next few moments. I will also discuss the above with the attending physician later this morning. Iván Keys MD MTDD
[2017-09-29] MEDS: Heparin25000 units/250ml 1/2NS 25,000 UNITS/250 ML BAG IV SCH (08:55)
[2017-09-29] MEDS: MethylPREDNISolone 40 mg Vial IVP SCH ×2 (09:33→21:30)
[2017-09-29] MEDS: Saliva Substitute 44.3 ML PO SCH ×2 (09:44→17:30)
--- NOTE | 2017-09-29 10:11 | CP.PCM.PN ---
Subjective - Date & Time of Evaluation Date of Evaluation: 09/29/17 Time of Evaluation: 09:40 - Subjective Subjective: Patient is breathing well, no fevers overnight, eating when fed, no diarrhea. Objective - Vital Signs/Intake and Output Vital Signs (last 24 hours): Temp Pulse Resp BP Pulse Ox 98.8 F 61 16 112/43 L 99 09/29/17 03:46 09/29/17 03:30 09/29/17 03:30 09/29/17 03:30 09/29/17 03:30 Intake and Output: 09/29/17 09/29/17 06:59 18:59 Intake Total 934 Output Total 1000 Balance -66 - Medications Medications: Current Medications Acetylcysteine (Acetylcysteine 20%) 4 ml IH [id number] [facility] Last Admin: 09/29/17 07:25 Dose: 4 ml Albuterol Sulfate (Albuterol 0.083% Inhal Lesley (2.5 Mg/3 Ml) Ud) 2.5 mg IH [id number] [facility] Last Admin: 09/29/17 07:25 Dose: 2.5 mg Alprazolam (Xanax) 0.25 mg PO TID PRN; Protocol PRN Reason: Anxiety Stop: 10/05/17 14:01 Last Admin: 09/28/17 21:00 Dose: 0.25 mg Aspirin (Ecotrin) 81 mg PO DAILY [facility] Last Admin: 09/28/17 09:10 Dose: Not Given Atorvastatin Calcium (Lipitor) 40 mg PO [facility] Last Admin: 09/28/17 21:00 Dose: 40 mg Budesonide (Pulmicort Respules) 0.5 mg IH [id number] [facility] Last Admin: 09/29/17 07:25 Dose: 0.5 mg Diltiazem HCl (Cardizem) 60 mg PO TID [facility] Last Admin: 09/28/17 17:29 Dose: 60 mg Doxycycline Hyclate (Doryx) 100 mg PO Q12 [facility] PRN Reason: Protocol Stop: 10/07/17 22:01 Last Admin: 09/28/17 21:00 Dose: 100 mg Duloxetine HCl (Cymbalta) 30 mg PO [facility] Last Admin: 09/28/17 21:00 Dose: 30 mg Furosemide (Lasix) 40 mg IVP DAILY [facility] Last Admin: 09/28/17 09:10 Dose: 40 mg Cefepime HCl (Maxipime 2gm) 2 gm in 100 mls @ 100 mls/hr IVPB Q8 [facility] PRN Reason: Protocol Stop: 09/30/17 22:01 Last Admin: 09/29/17 05:59 Dose: 100 mls/hr Heparin Sodium/Sodium Chloride (Heparin 70826 Units/250ml 1/2 Normal Saline) 25 ,000 units in 250 mls @ 8.073 mls/hr IV .Q24H [facility]; 14 UNITS/KG/HR PRN Reason: Protocol Last Admin: 09/28/17 16:47 Dose: 12 units/kg/hr, 6.92 mls/hr Potassium Chloride (Potassium Chloride 10 Meq/100 Ml) 10 meq in 100 mls @ 50 mls/hr IVPB Q2H [facility] Stop: 09/29/17 12:29 Methylprednisolone (Solu-Medrol) 30 mg IVP Q12 [facility] Last Admin: 09/28/17 21:00 Dose: 30 mg Oxycodone/Acetaminophen (Percocet 5/325 Mg Tab) 1 tab PO Q6H PRN PRN Reason: Pain, moderate (4-7) Stop: 10/01/17 20:08 Last Admin: 09/28/17 20:57 Dose: 1 tab Pantoprazole Sodium (Protonix Inj) 40 mg IVP DAILY [facility] Last Admin: 09/28/17 09:10 Dose: 40 mg Saliva Substitute (Saliva Substitute) 1 ml PO BID [facility] Last Admin: 09/28/17 17:29 Dose: 1 ml - Labs Labs: 09/29/17 06:50 09/29/17 06:50 PT 11.8 SECONDS (9.4-12.5) 09/27/17 06:00 INR 1.03 (0.93-1.08) 09/27/17 06:00 APTT 95.1 Seconds (25.1-36.5) H 09/29/17 08:00 - Constitutional Appears: Non-toxic, Chronically Ill - Head Exam Head Exam: NORMAL INSPECTION - ENT Exam ENT Exam: Mucous Membranes Moist - Neck Exam Neck Exam: absent: Meningismus - Respiratory Exam Respiratory Exam: Decreased Breath Sounds - Cardiovascular Exam Cardiovascular Exam: +S1, +S2 - GI/Abdominal Exam GI & Abdominal Exam: Soft. absent: Tenderness Assessment and Plan - Assessment and Plan (Free Text) Plan: Assessment severe sepsis due to HCAP with possible gram positive cocci and/or gram negative bacilli on top of acute diastolic heart failure atrial fibrillation COPD HTN dyslipidemia history of compression fracture L1-L2 Plan Will continue Cefepime and Doxycycline day 5 - since patient is doing, we should be able to discontinue antibiotics in the next 24-48 hours will continue to monitor clinically
--- NOTE | 2017-09-29 10:24 | RAD ---
HISTORY: follow up COMPARISON: 09/28/2017 FINDINGS: LUNGS: There is persistent airspace disease in the right lower lobe. There is also consolidation in the left lower lobe. PLEURA: Moderate right and large left pleural effusions, no pneumothorax apparent. CARDIOVASCULAR: Normal. OSSEOUS STRUCTURES: Stable. Multiple calcifications medial to the right humeral head. VISUALIZED UPPER ABDOMEN: Normal. OTHER FINDINGS: None. IMPRESSION: No significant change in moderate right and large left pleural effusions and bilateral lower lobe atelectasis/pneumonia.
--- NOTE | 2017-09-29 11:59 | PN ---
DATE: 09/29/2017 CARDIOLOGY FOLLOWUP SUBJECTIVE: The patient is awake, still weak without dyspnea. PHYSICAL EXAMINATION: VITAL SIGNS: Blood pressure 129/54, heart rate in the 60s, pulse oximetry on nasal O2 is 96. NECK: Negative JVD. LUNGS: Decreased breath sounds. HEART: Reveal S1, S2. EXTREMITIES: Without edema. LABORATORY DATA: Potassium is 2.9, creatinine is 1.0 with hemoglobin of 9.0. IMPRESSION: 1. Status post non-ST elevation myocardial infarction. 2. Documented coronary artery disease. 3. Status post respiratory failure. 4. Anemia. 5. Weakness. 6. Severe chronic obstructive pulmonary disease. 7. Lung mass. PLAN: Given these findings, the patient is hemodynamically stable. The patient is currently a DNR. We will transfer the patient to Med-Surg floor for continued supportive care. Sanju Rich MD
--- NOTE | 2017-09-29 22:21 | PN ---
DATE: 09/29/2017 SUBJECTIVE: The patient is 76-year-old, seen and examined, lying in bed, seems to be comfortable, lethargic, eating fair. No shortness of breath. PHYSICAL EXAMINATION: VITAL SIGNS: She is afebrile, pulse 62, respirations 16, blood pressure 129/54. LUNGS: Bilateral fair airflow. Diffusely decreased breath sounds. Soft crackle at bases. HEART: S1 and S2 audible. ABDOMEN: Soft and nontender. No rebound. No guarding. NEUROLOGIC: She is awake, alert, able to communicate, but has generalized weakness. LABORATORY DATA: WBC is 12.6, hemoglobin 9, hematocrit 27, platelets 141. PTT is 66. Chemistry: Sodium 141, potassium 2.9, chloride 100, CO2 of 38, BUN 35, creatinine 1.0, blood sugar of 160. ASSESSMENT: 1. Chronic obstructive pulmonary disease exacerbation. 2. Congestive heart failure exacerbation. 3. Chronic atrial fibrillation. 4. Status post respiratory failure, on extubation. 5. Right and left pleural effusion and bilateral lower lobe infiltrate. 6. Anemia. PLAN: The patient is currently on nebulizer treatment. She is on doxycycline and aspirin. She is on heparin. She is on Lasix. Potassium is supplemented. Continue on cefepime. She is on IV steroids. We will follow up with the patient. CBC and CMP in a.m. Hellen Shipman MD
[2017-09-30] MEDS: Oxycodone/Acetaminophen 5/325 mg Tab PO PRN ×4 (00:02→18:06)
[2017-09-30] MEDS: Albuterol 0.083% Inhal Sol (2.5 mg/3 mL) UD IH SCH ×4 (01:44→20:06)
[2017-09-30] MEDS: Acetylcysteine 20% Inhal Soln (4ml) IH SCH ×4 (01:44→20:05)
[2017-09-30] MEDS: Cefepime IV 2 gm in NS 2 GM/100 ML BAG IVPB SCH ×3 (05:27→22:22)
[2017-09-30 05:48] LABS: BASO # 0.01 K/mm3 (0.0-2.0); BASO % 0.2 % (0.0-3.0); GRAN # 4.99 (1.4-6.5); GRAN % 88.5 % (50.0-68.0); HEMOGLOBIN 8.7 g/dL (12.0-16.0); LYMPH # 0.4 (1.2-3.4); LYMPH % 6.2 % (22.0-35.0); MEAN CELL VOLUME 97.5 fl (80.0-105.0); MEAN CORPUSCULAR HEMOGLOBIN 31.4 pg (25.0-35.0); MEAN CORPUSCULAR HGB CONC 32.2 g/dl (31.0-37.0); MEAN PLATELET VOLUME 10.3 fl (7.0-11.0); MONO # 0.3 (0.1-0.6); MONO % 5.1 % (1.0-6.0); RBC 2.77 10^6/uL (3.5-6.1); RED CELL DISTRIBUTION WIDTH 15.4 % (11.5-14.5); WHITE BLOOD COUNT 5.6 10^3/ul (4.5-11.0)
[2017-09-30 05:51] LABS: ALB/GLOB RATIO 1.1 (1.1-1.8); ALBUMIN 3.1 g/dL (3.0-4.8); CALCIUM 9.5 mg/dL (8.4-10.5)
--- NOTE | 2017-09-30 07:31 | PN ---
DATE: 09/30/2017(620am-710am) PULMONARY PROGRESS NOTE SUBJECTIVE: The patient appears comfortable this morning. She is not short of breath at rest. She remains very weak appearing. PHYSICAL EXAMINATION: VITAL SIGNS: Temperature is 97.9, pulse is 63, respirations are 16, and blood pressure is 115/56. Oxygen saturation on nasal cannula is 97%. HEENT: Normocephalic and atraumatic. NECK: No JVD. CARDIOVASCULAR: Systolic ejection murmur at the lower left sternal border. Positive S3 gallop. LUNGS: Decreased breath sounds with crackles at both bases. Less rhonchi. No wheezing. EXTREMITIES: Positive for mild edema. No cyanosis and no clubbing. Calves are nontender to palpation. GASTROINTESTINAL: Abdomen is soft, nontender and nondistended. Bowel sounds are positive. SKIN: No acute rash. NEUROLOGIC: Exam is limited at the present time. PERTINENT LABORATORY DATA: CBC: White count of 5.6, hemoglobin of 8.7, hematocrit of 27.0, and platelets of 123,000. IMPRESSION 1. Status post cardiopulmonary resuscitation. 2. Respiratory failure. 3. Advanced chronic obstructive pulmonary disease. 4. Congestive heart failure. 5. Probable underlying pneumonia. 6. Non-ST elevation myocardial infarction. 7. Right lower lobe lung mass. 8. Atelectasis, effusion - left lower lobe. 9. Cardiac arrhythmias. PLAN: The patient remains comfortable this morning. She is not short of breath at rest. I did discuss the case with the night nurse at length. The night nurse stated that the patient had a pretty good night overall. However, the patient continues to refuse her BiPAP at night. In addition, as per the nurse, the patient did have several episodes of bradycardia (into the 40's) during the last shift. On physical exam, there is less bronchospasm noted. In addition, there is a significant decrease in the alveolar-arterial gradient. I will continue the current nebulizer treatments and low-dose intravenous steroids for now. The patient remains on antibiotic therapy - as per infectious disease. Temperatures have resolved. The leukocytosis has resolved. Input by Dr. Rich (Cardiology) is also noted. The patient is certainly clinically improved - compared to her initial status. However, again, unfortunately, her overall status/prognosis remains very poor. She continues to appear very very weak, and is certainly very fragile. I will discuss the above with the entire ICU team in the next few moments. I will also discuss the above with the attending physician. Iván Kesy MD MTDJulia
[2017-09-30] MEDS: Budesonide 0.5 mg/2 ml Inhal Susp UD IH SCH ×2 (07:59→20:06)
[2017-09-30] MEDS: Pantoprazole 40 mg EC Tab PO SCH (10:50)
[2017-09-30] MEDS: MethylPREDNISolone 40 mg Vial IVP SCH ×2 (10:51→22:22)
[2017-09-30] MEDS: Saliva Substitute 44.3 ML PO SCH ×2 (10:52→18:02)
[2017-09-30] MEDS: Heparin25000 units/250ml 1/2NS 25,000 UNITS/250 ML BAG IV SCH (16:30)
--- NOTE | 2017-09-30 19:43 | PN ---
DATE: 09/30/2017 SUBJECTIVE: The patient is in the ICU 129, bed 1. No fevers and no chills. PHYSICAL EXAMINATION: VITAL SIGNS: The patient's temperature is 97, blood pressure is 120/70, respiratory rate of 18 and heart rate of 78. HEENT: Unremarkable. NECK: Supple. LUNGS: Have decreased breath sounds. HEART: Normal S1 and S2. ABDOMEN: Soft and nontender. LABORATORY DATA: Reveals a white count of 5.6, hemoglobin of 8 and platelets of 123. BUN of 43 and creatinine of 1.2. Urinalysis is noted. Serology is noted. Microbiology is noted, the blood cultures, urine cultures, and Dr. Keys's note is reviewed from today. Dr. Shipman's note from yesterday is also reviewed. Dr. Sanju Rich's progress note is reviewed. The patient had a chest x-ray yesterday which reveals persistent airspace disease in the right lower lobe, consolidation of left lower lobe. ASSESSMENT AND PLAN: This is a 76-year-old female, seen early this morning in the ICU with severe sepsis due to healthcare-associated pneumonia, possible Gram-positive cocci and possible Gram-negative chapito on top of acute diastolic heart failure, atrial fibrillation, chronic obstructive lung disease, dyslipidemia with cefepime and doxycycline day #6 and the patient is much improved. Last procalcitonin was 1 on . We will repeat a procalcitonin today. We will follow with you. Jean Dawn MD
[2017-10-01] MEDS: Oxycodone/Acetaminophen 5/325 mg Tab PO PRN ×3 (00:11→14:07)
--- NOTE | 2017-10-01 00:11 | PN ---
DATE: SUBJECTIVE: The patient is 76 years old, seen and examined, lying in bed, complaining of generalized weakness, generalized aches and pain. Poor oral intake. PHYSICAL EXAMINATION: VITAL SIGNS: She is afebrile, pulse 80, respirations 16 and blood pressure 122/64. LUNGS: Bilateral poor respiratory effort. HEART: S1 and S2 audible. Irregular rate control. ABDOMEN: Soft and nontender. No rebound. No guarding. NEUROLOGIC: She is awake, alert, oriented, able to communicate. EXTREMITIES: Bilateral leg, no edema. LABORATORY DATA: WBC is 5.6, hemoglobin 8.7, hematocrit 27, and platelet of 123. PTT is 62.3. Chemistry; sodium 142, potassium 3.2, chloride 99, CO2 32, BUN 43, creatinine 1.2, and blood sugar of 147. ASSESSMENT: 1. Status post respiratory failure, status post intubation successfully extubated. 2. Chronic atrial fibrillation. 3. Congestive heart failure, improved. 4. Bilateral lower lobe infiltrate. 5. Anemia. 6. Hypokalemia. PLAN: The patient is currently on doxycycline. She is getting aspirin. She is on heparin. She is on cefepime. At this time, the patient is on Coumadin and we will monitor PT/INR. The patient has been transferred to telemetry. We will follow up electrolyte. Out of bed to chair. We will evaluate the patient in a.m. Hellen Shipman MD
--- NOTE | 2017-10-01 01:13 | CP.PCM.PN ---
Subjective - Date & Time of Evaluation Date of Evaluation: 10/01/17 Time of Evaluation: 00:59 - Subjective Subjective: S:K 3.2 mEq. As per nurse, patient is having runs of VTACH. Patient was seen at bedside. She is asymptomatic. Medical record was reviewed. O: Last Vital Signs 3 Temp 98.2 F 09/30/17 20:00 Pulse 82 09/30/17 20:10 Resp 18 09/30/17 20:10 BP 117/50 L 09/30/17 20:00 Pulse Ox 96 09/30/17 20:10 Not in distress. LUNGS: Normal breathing pattern. A:Hypokalemia. Non sustained ventricular tachycardia. P: K-carlos as ordered. Objective - Vital Signs/Intake and Output Vital Signs (last 24 hours): Temp Pulse Resp BP Pulse Ox 98.2 F 82 18 117/50 L 96 09/30/17 20:00 09/30/17 20:10 09/30/17 20:10 09/30/17 20:00 09/30/17 20:10 Intake and Output: 09/30/17 10/01/17 18:59 06:59 Intake Total 630 Output Total 1250 Balance -620 - Medications Medications: Current Medications Acetylcysteine (Acetylcysteine 20%) 4 ml IH [id number] [facility] Last Admin: 09/30/17 20:05 Dose: 4 ml Albuterol Sulfate (Albuterol 0.083% Inhal Lesley (2.5 Mg/3 Ml) Ud) 2.5 mg IH [id number] [facility] Last Admin: 09/30/17 20:06 Dose: 2.5 mg Alprazolam (Xanax) 0.25 mg PO TID PRN; Protocol PRN Reason: Anxiety Stop: 10/05/17 14:01 Last Admin: 09/30/17 22:23 Dose: 0.25 mg Aspirin (Ecotrin) 81 mg PO DAILY [facility] Last Admin: 09/30/17 10:10 Dose: 81 mg Atorvastatin Calcium (Lipitor) 40 mg PO HS [facility] Last Admin: 09/30/17 22:25 Dose: 40 mg Budesonide (Pulmicort Respules) 0.5 mg IH [id number] [facility] Last Admin: 09/30/17 20:06 Dose: 0.5 mg Doxycycline Hyclate (Doryx) 100 mg PO Q12 [facility] PRN Reason: Protocol Stop: 10/07/17 22:01 Last Admin: 09/30/17 22:28 Dose: 100 mg Duloxetine HCl (Cymbalta) 30 mg PO HS [facility] Last Admin: 09/30/17 22:27 Dose: 30 mg Furosemide (Lasix) 40 mg IVP DAILY [facility] Last Admin: 09/30/17 10:52 Dose: 40 mg Heparin Sodium/Sodium Chloride (Heparin 26454 Units/250ml 1/2 Normal Saline) 25 ,000 units in 250 mls @ 8.073 mls/hr IV .Q24H [facility]; 14 UNITS/KG/HR PRN Reason: Protocol Last Titration: 09/30/17 06:45 Dose: 8 units/kg/hr, 4.613 mls/hr Potassium Chloride (Potassium Chloride 10 Meq/100 Ml) 10 meq in 100 mls @ 50 mls/hr IVPB Q2H [facility] Stop: 10/01/17 04:59 Methylprednisolone (Solu-Medrol) 30 mg IVP Q12 [facility] Last Admin: 09/30/17 22:22 Dose: 30 mg Oxycodone/Acetaminophen (Percocet 5/325 Mg Tab) 1 tab PO Q6H PRN PRN Reason: Pain, moderate (4-7) Stop: 10/01/17 20:08 Last Admin: 10/01/17 00:11 Dose: 1 tab Pantoprazole Sodium (Protonix Ec Tab) 40 mg PO ACB [facility] Last Admin: 09/30/17 10:50 Dose: 40 mg Saliva Substitute (Saliva Substitute) 1 ml PO BID [facility] Last Admin: 09/30/17 18:02 Dose: 1 ml Warfarin Sodium (Coumadin) 5 mg PO 1800 [facility] PRN Reason: Protocol - Labs Labs: 09/30/17 05:00 09/30/17 05:00 PT 11.8 SECONDS (9.4-12.5) 09/27/17 06:00 INR 1.03 (0.93-1.08) 09/27/17 06:00 APTT 51.2 Seconds (25.1-36.5) H 09/30/17 19:00
[2017-10-01] MEDS: Acetylcysteine 20% Inhal Soln (4ml) IH SCH ×4 (02:22→20:00)
[2017-10-01] MEDS: Albuterol 0.083% Inhal Sol (2.5 mg/3 mL) UD IH SCH (02:22)
[2017-10-01 06:36] LABS: HEMOGLOBIN 8.4 g/dL (12.0-16.0); MEAN CORPUSCULAR HEMOGLOBIN 31.8 pg (25.0-35.0); MEAN CORPUSCULAR HGB CONC 32.8 g/dl (31.0-37.0); MEAN PLATELET VOLUME 10.4 fl (7.0-11.0); RBC 2.64 10^6/uL (3.5-6.1); RED CELL DISTRIBUTION WIDTH 15.1 % (11.5-14.5); WHITE BLOOD COUNT 7.8 10^3/ul (4.5-11.0)
[2017-10-01 06:45] LABS: CALCIUM 9.2 mg/dL (8.4-10.5)
[2017-10-01] MEDS: Budesonide 0.5 mg/2 ml Inhal Susp UD IH SCH ×2 (07:25→19:51)
[2017-10-01] MEDS: Levalbuterol 1.25 MG/3 ML Inhal Soln UD IH SCH ×3 (07:27→19:50)
--- NOTE | 2017-10-01 08:35 | PN ---
DATE: 10/01/2017(630am-720am) PULMONARY NOTE SUBJECTIVE: The patient appears comfortable this morning. She is not short of breath at rest. She remains very, very weak. PHYSICAL EXAMINATION: VITAL SIGNS: Last temperature recorded is 98.2, pulse on the monitor is 88, respiratory rate 18, last blood pressure recorded 117/50. Oxygen saturation on nasal cannula is 97%. HEENT: Normocephalic, atraumatic. NECK: No JVD. CARDIOVASCULAR: Systolic ejection murmur at the lower left sternal border. Positive S3 gallop. LUNGS: Decreased breath sounds with crackles at both bases. Minimal/less rhonchi. No wheezing. EXTREMITIES: Positive for mild edema. No cyanosis, no clubbing. Calves are nontender to palpation. GI: Abdomen is soft, nontender and nondistended. Bowel sounds are positive. SKIN: No acute rash. NEUROLOGIC: Exam limited at the present time. IMPRESSION: 1. Status post cardiopulmonary resuscitation. 2. Respiratory failure. 3. Advanced chronic obstructive pulmonary disease. 4. Congestive heart failure. 5. Probable underlying pneumonia. 6. Non-ST elevation myocardial infarction. 7. Right lower lobe lung mass. 8. Atelectasis, effusion - left lower lobe. 9. Cardiac arrhythmias. Ventricular tachycardia. PLAN: The patient appears comfortable at the present time. She is not short of breath at rest. She remains very, very weak in appearance. I did discuss the case with the night nurse at length. The night nurse did inform me that the patient had multiple runs of ventricular tachycardia during her shift. On physical exam, there is less bronchospasm noted. In addition, there is a significant decrease in the alveolar-arterial gradient. I will change the nebulizer treatments to Xopenex - given the ventricular tachycardia, and continue with the low-dose intravenous steroids for now. The patient remains on antibiotic therapy - as per Infectious Disease. Temperatures have resolved. Leukocytosis has resolved. Input by Dr. Dawn is noted. The clinical status of the patient is certainly improved - compared to the initial presentation. However, unfortunately, the future status/prognosis for this patient remains very poor. All are aware. I will discuss the above with entire ICU team the next few moments. I will also discuss the above with the attending physician. Iván Keys MD [facility] # [id number] MINDY
[2017-10-01] MEDS: Pantoprazole 40 mg EC Tab PO SCH (09:08)
[2017-10-01] MEDS: MethylPREDNISolone 40 mg Vial IVP SCH ×2 (09:09→21:00)
[2017-10-01] MEDS: Saliva Substitute 44.3 ML PO SCH ×2 (09:09→17:35)
--- NOTE | 2017-10-01 13:26 | PN ---
DATE: 10/01/2017 SUBJECTIVE: The patient is in bed. Was seen early this morning in the ICU, bed 1. No fevers and no chills. PHYSICAL EXAMINATION: VITAL SIGNS: The patient is comfortable in bed, answering questions appropriately with a temperature of 98, blood pressure is 117/50, respiratory of 18, heart rate of 86. HEENT: Unremarkable. NECK: Supple. LUNGS: Have decreased breath sounds. HEART: Normal S1, S2. ABDOMEN: Soft, nontender. LABORATORY DATA: Reveals a white count of 7.8, hemoglobin of 8, platelets of 109. The patient's BUN is 49, creatinine of 1.3, procalcitonin 0.49. Urinalysis is noted. Serology, influenza is negative. Urine for Legionella antigen is negative. Urine for strep antigen is negative. Microbiology reveals the blood cultures are negative. ASSESSMENT AND PLAN: A 76-year-old female who was seen early this morning in the ICU, bed #1 was admitted with severe sepsis due to healthcare-associated pneumonia, gram-positive cocci versus gram-negative chapito and with acute diastolic congestive heart failure on top of chronic congestive heart failure with atrial fibrillation, chronic obstructive lung disease, dyslipidemia and completed 7 days of cefepime and doxycycline with a downward trending of the procalcitonin; from 1 it is down to 0.49 yesterday. Currently, on doxycycline day #7 and off of the cefepime now. The patient is also on Solu-Medrol. We will discontinue the doxycycline after 7-10 days, today is day #7. Jean Dawn MD
[2017-10-01] MEDS ORDERED: Potassium Chloride 20 mEq/15 ml LIQ UD PO STA (16:38)
[2017-10-01] MEDS ORDERED: Oxycodone/Acetaminophen 5/325 mg Tab PO STA (20:28)
--- NOTE | 2017-10-01 22:11 | PN ---
DATE: SUBJECTIVE: The patient is 76 years old, seen and examined, lying in bed, seems to be comfortable, complaining of generalized aches and pain. PHYSICAL EXAMINATION: VITAL SIGNS: She is afebrile, pulse 82, respirations 18, blood pressure 117/60. LUNGS: Bilaterally diffusely decreased breath sounds. HEART: S1, S2 audible. Irregular, rate controlled. ABDOMEN: Soft and nontender. No rebound. No guarding. NEUROLOGICAL: She is awake, alert, and oriented. Able to communicate. LABORATORY EXAMINATION: WBC is 7.8, hemoglobin 8.4, hematocrit 25.6, platelets 109. The patient is on heparin. PTT is 56. Chemistry, sodium 140, potassium 3.1, chloride 98, CO2 of 34, BUN 49, creatinine 1.3, blood sugar of 150. ASSESSMENT: 1. Status post respiratory failure, status post extubation. 2. Bilateral pneumonia. 3. Chronic atrial fibrillation. 4. History of hypertension. 5. Chronic obstructive pulmonary disease. 6. Asthmatic bronchitis. PLAN: The patient has been started on Coumadin. Continue heparin. Supplement potassium. We will follow up patient in a.m. Hellen Shipman MD
[2017-10-02] MEDS: Acetylcysteine 20% Inhal Soln (4ml) IH SCH ×5 (01:41→20:05)
[2017-10-02] MEDS: Levalbuterol 1.25 MG/3 ML Inhal Soln UD IH SCH ×4 (01:49→20:04)
--- NOTE | 2017-10-02 03:02 | CP.PCM.PN ---
Subjective - Date & Time of Evaluation Date of Evaluation: 10/02/17 Time of Evaluation: 02:58 (Seen earlier.) - Subjective Subjective: Patient was seen at bedside. Requests percocet for bodyache. States that she takes percocet at home for bodyaches. No other complaints. This 76 year old woman was admitted with cough , fever, congestion , bilateral pneumonia. Has PMH of HTN, atrial fibrillation, COPD, cervical diskectomy, HLD. compression fracture L1, L2, OA, CHF, chronic anemia. Objective - Vital Signs/Intake and Output Vital Signs (last 24 hours): Temp Pulse Resp BP Pulse Ox 98.8 F 93 H 20 124/58 L 95 10/01/17 20:00 10/01/17 23:30 10/01/17 23:30 10/01/17 20:00 10/01/17 23:30 Intake and Output: 10/01/17 10/02/17 18:59 06:59 Intake Total 900 Output Total 725 Balance 175 - Medications Medications: Current Medications Acetylcysteine (Acetylcysteine 20%) 4 ml IH [id number] [facility] Last Admin: 10/02/17 01:49 Dose: Not Given Alprazolam (Xanax) 0.25 mg PO TID PRN; Protocol PRN Reason: Anxiety Stop: 10/05/17 14:01 Last Admin: 10/02/17 00:16 Dose: 0.25 mg Aspirin (Ecotrin) 81 mg PO DAILY [facility] Last Admin: 10/01/17 09:09 Dose: 81 mg Atorvastatin Calcium (Lipitor) 40 mg PO [facility] Last Admin: 10/01/17 21:00 Dose: 40 mg Budesonide (Pulmicort Respules) 0.5 mg IH [id number] [facility] Last Admin: 10/01/17 19:51 Dose: 0.5 mg Doxycycline Hyclate (Doryx) 100 mg PO Q12 [facility] PRN Reason: Protocol Stop: 10/07/17 22:01 Last Admin: 10/01/17 21:00 Dose: 100 mg Duloxetine HCl (Cymbalta) 30 mg PO [facility] Last Admin: 10/01/17 21:00 Dose: 30 mg Furosemide (Lasix) 40 mg IVP DAILY [facility] Last Admin: 10/01/17 18:06 Dose: Not Given Heparin Sodium/Sodium Chloride (Heparin 50593 Units/250ml 1/2 Normal Saline) 25 ,000 units in 250 mls @ 8.073 mls/hr IV .Q24H ANUJA; 14 UNITS/KG/HR PRN Reason: Protocol Last Admin: 09/30/17 16:30 Dose: 8 units/kg/hr, 4.613 mls/hr Levalbuterol HCl (Xopenex) 1.25 mg IH [id number] [facility] Last Admin: 10/02/17 01:49 Dose: Not Given Methylprednisolone (Solu-Medrol) 30 mg IVP Q12 [facility] Last Admin: 10/01/17 21:00 Dose: 30 mg Pantoprazole Sodium (Protonix Ec Tab) 40 mg PO ACB [facility] Last Admin: 10/01/17 09:08 Dose: 40 mg Saliva Substitute (Saliva Substitute) 1 ml PO BID [facility] Last Admin: 10/01/17 17:35 Dose: 1 ml Warfarin Sodium (Coumadin) 5 mg PO 1800 [facility] PRN Reason: Protocol Last Admin: 10/01/17 17:35 Dose: 5 mg - Labs Labs: 10/01/17 05:40 10/01/17 05:40 PT 11.8 SECONDS (9.4-12.5) 09/27/17 06:00 INR 1.03 (0.93-1.08) 09/27/17 06:00 APTT 56.1 Seconds (25.1-36.5) H 10/01/17 05:40 - Constitutional Appears: Well, In Acute Distress - Head Exam Head Exam: ATRAUMATIC, NORMAL INSPECTION, NORMOCEPHALIC - Eye Exam Eye Exam: Normal appearance - ENT Exam ENT Exam: Normal External Ear Exam - Neck Exam Neck Exam: Normal Inspection - Respiratory Exam Respiratory Exam: NORMAL BREATHING PATTERN - Cardiovascular Exam Cardiovascular Exam: absent: JVD - GI/Abdominal Exam GI & Abdominal Exam: absent: Distended - Rectal Exam Rectal Exam: Deferred - Exam Additional comments: Deferred. - Extremities Exam Extremities Exam: Normal Inspection - Back Exam Back Exam: NORMAL INSPECTION - Neurological Exam Neurological Exam: Alert, Awake, Oriented x3 - Psychiatric Exam Psychiatric exam: Normal Affect, Normal Mood - Skin Skin Exam: Normal Color Assessment and Plan - Assessment and Plan (Free Text) Assessment: Bodyache. Chronic atrial fibrillation. COPD. HTN. HLD. OA. CHF. Chronic anemia. Plan: Percocet 5/325 I PO x 1. Continue present management as per PMD.
[2017-10-02] MEDS: Budesonide 0.5 mg/2 ml Inhal Susp UD IH SCH ×2 (07:42→20:04)
[2017-10-02] MEDS: Pantoprazole 40 mg EC Tab PO SCH (08:23)
--- NOTE | 2017-10-02 08:43 | PN ---
DATE: 10/02/2017(615am--705am) PULMONARY NOTE SUBJECTIVE: The patient appears comfortable this morning. She is not short of breath at rest. She remains very, very weak appearing. PHYSICAL EXAMINATION: VITAL SIGNS: Temperature is 98.1, pulse 82, respirations 18/20, blood pressure 143/74. Oxygen saturation on nasal cannula is 98%. HEENT: Normocephalic, atraumatic. No JVD. CARDIOVASCULAR: Systolic ejection murmur at the lower left sternal border. Positive S3 gallop. LUNGS: Decreased breath sounds at the bases with crackles. Minimal/less rhonchi. No wheezing. EXTREMITIES: Positive for mild edema. No cyanosis. No clubbing. Calves are nontender to palpation. GASTROINTESTINAL: Abdomen is soft, nontender and nondistended. Bowel sounds are positive. Skin: No acute rash. NEUROLOGIC: Limited at the present time. IMPRESSION 1. Status post cardiopulmonary resuscitation. 2. Respiratory failure. 3. Advanced chronic obstructive pulmonary disease. 4. Congestive heart failure. 5. Probable underlying pneumonia. 6. Oei-HD-tljlxqcaq myocardial infarction. 7. Right lower lobe lung mass. 8. Atelectasis, effusion - left lower lobe. 9. Cardiac arrhythmias. Ventricular tachycardia. PLAN: The patient appears comfortable this morning. She is not short of breath at rest. She remains very ,very weak in appearance. I did discuss the case with the night nurse at length. The night nurse stated that the patient had an uneventful night. There have been no additional runs of ventricular tachycardia over the past 24 hours. On physical exam, there is less bronchospasm noted. In addition, the alveolar-arterial gradient is also much less. I will continue the current nebulizer treatments, pulmonary toilet and decrease the intravenous steroids this morning. The patient remains on antibiotic therapy - as per infectious disease. There are no temperatures noted. There is no leukocytosis. Inputs by Cardiology is also noted. Clinical status of the patient is certainly improved - compared to the initial presentation. However, again, unfortunately, the future status/prognosis for this patient remains very poor. I will discuss the above with the entire ICU team in the next few moments. I will discuss the above with the attending physician. Iván Karpman, MD [facility] # [id number] MTDJulia
[2017-10-02] MEDS: Oxycodone/Acetaminophen 5/325 mg Tab PO PRN ×2 (10:57→17:07)
[2017-10-02] MEDS: MethylPREDNISolone 40 mg Vial IVP SCH (11:01)
[2017-10-02] MEDS: Saliva Substitute 44.3 ML PO SCH (11:02)
[2017-10-02 15:53] LABS: ALB/GLOB RATIO 1.1 (1.1-1.8); ALBUMIN 3.2 g/dL (3.0-4.8); CALCIUM 9.8 mg/dL (8.4-10.5)
[2017-10-02] MEDS ORDERED: Potassium Chloride 20 mEq ER Tab PO ONE (16:03)
--- NOTE | 2017-10-02 17:08 | CP.PCM.PN ---
Subjective - Date & Time of Evaluation Date of Evaluation: 10/02/17 Time of Evaluation: 09:40 - Subjective Subjective: Comfortable in bed, not in distress, no diarrhea, no fevers. Objective - Vital Signs/Intake and Output Vital Signs (last 24 hours): Temp Pulse Resp BP Pulse Ox 98.1 F 82 20 143/74 98 10/02/17 04:00 10/02/17 04:00 10/02/17 04:00 10/02/17 04:00 10/02/17 04:00 Intake and Output: 10/02/17 10/02/17 06:59 18:59 Intake Total 288 Output Total 425 Balance -137 - Medications Medications: Current Medications Acetylcysteine (Acetylcysteine 20%) 4 ml IH [id number] [facility] Last Admin: 10/02/17 01:49 Dose: Not Given Alprazolam (Xanax) 0.25 mg PO TID PRN; Protocol PRN Reason: Anxiety Stop: 10/05/17 14:01 Last Admin: 10/02/17 00:16 Dose: 0.25 mg Aspirin (Ecotrin) 81 mg PO DAILY [facility] Last Admin: 10/01/17 09:09 Dose: 81 mg Atorvastatin Calcium (Lipitor) 40 mg PO HS [facility] Last Admin: 10/01/17 21:00 Dose: 40 mg Budesonide (Pulmicort Respules) 0.5 mg IH [id number] [facility] Last Admin: 10/01/17 19:51 Dose: 0.5 mg Doxycycline Hyclate (Doryx) 100 mg PO Q12 [facility] PRN Reason: Protocol Stop: 10/07/17 22:01 Last Admin: 10/01/17 21:00 Dose: 100 mg Duloxetine HCl (Cymbalta) 30 mg PO HS [facility] Last Admin: 10/01/17 21:00 Dose: 30 mg Furosemide (Lasix) 40 mg IVP DAILY [facility] Last Admin: 10/01/17 18:06 Dose: Not Given Heparin Sodium/Sodium Chloride (Heparin 99060 Units/250ml 1/2 Normal Saline) 25 ,000 units in 250 mls @ 8.073 mls/hr IV .Q24H [facility]; 14 UNITS/KG/HR PRN Reason: Protocol Last Admin: 09/30/17 16:30 Dose: 8 units/kg/hr, 4.613 mls/hr Levalbuterol HCl (Xopenex) 1.25 mg IH [id number] [facility] Last Admin: 10/02/17 01:49 Dose: Not Given Methylprednisolone (Solu-Medrol) 30 mg IVP Q12 [facility] Last Admin: 10/01/17 21:00 Dose: 30 mg Pantoprazole Sodium (Protonix Ec Tab) 40 mg PO ACB [facility] Last Admin: 10/01/17 09:08 Dose: 40 mg Saliva Substitute (Saliva Substitute) 1 ml PO BID [facility] Last Admin: 10/01/17 17:35 Dose: 1 ml Warfarin Sodium (Coumadin) 5 mg PO 1800 [facility] PRN Reason: Protocol Last Admin: 10/01/17 17:35 Dose: 5 mg - Labs Labs: 10/01/17 05:40 10/01/17 05:40 PT 11.8 SECONDS (9.4-12.5) 09/27/17 06:00 INR 1.03 (0.93-1.08) 09/27/17 06:00 APTT 56.1 Seconds (25.1-36.5) H 10/01/17 05:40 - Constitutional Appears: Chronically Ill - Head Exam Head Exam: NORMAL INSPECTION - ENT Exam ENT Exam: Mucous Membranes Moist - Neck Exam Neck Exam: absent: Meningismus - Respiratory Exam Respiratory Exam: Decreased Breath Sounds - Cardiovascular Exam Cardiovascular Exam: +S1, +S2 - GI/Abdominal Exam GI & Abdominal Exam: Soft. absent: Tenderness Assessment and Plan - Assessment and Plan (Free Text) Plan: Assessment severe sepsis due to HCAP on top of acute diastolic heart failure, clinically improving atrial fibrillation COPD HTN dyslipidemia history of compression fracture L1-L2 Plan S/P 7 days of Cefepime and on Doxycycline day 8 - complete 7-10 days of PO Doxycycline will continue to monitor clinically
--- NOTE | 2017-10-02 18:21 | PN ---
DATE: 10/02/2017 SUBJECTIVE: The patient is without shortness of breath, without chest pain. She is diffusely weak. PHYSICAL EXAMINATION: VITAL SIGNS: Blood pressure is 143/74, heart rate in the 80s. NECK: Negative JVD. LUNGS: Without rales. HEART: Reveals S1, S2. EXTREMITIES: Without edema. LABORATORY DATA: No laboratories were drawn today. The glucose is 105. IMPRESSION: 1. Status post non-ST elevation myocardial infarction. 2. Multivessel coronary artery disease. 3. Severe chronic obstructive pulmonary disease. 4. Anemia. 5. Lung mass. 6. Weakness. Given these findings, we will continue supportive care. Currently the patient is comfortable. Sanju Rich MD
[2017-10-02] MEDS: Heparin25000 units/250ml 1/2NS 25,000 UNITS/250 ML BAG IV SCH (18:44)
[2017-10-02 19:35] LABS: INR 1.27 (0.93-1.08); PARTIAL THROMBOPLASTIN TIME 52.5 Seconds (25.1-36.5); PROTHROMBIN TIME 14.6 SECONDS (9.4-12.5)
--- NOTE | 2017-10-02 22:43 | PN ---
DATE: 10/02/2017 SUBJECTIVE: The patient is 76 years old seen and examined, lying in the bed, seems to be comfortable. Complained of generalized aches and pain. Shortness of breath is better. No nausea or vomiting. Eating fair. PHYSICAL EXAMINATION: VITAL SIGNS: She is afebrile, pulse 82, respirations 20, blood pressure 115/59. LUNGS: Bilateral fair airflow. Few expiratory rhonchi with soft crackle scattered. HEART: S1 and S2 audible. ABDOMEN: Soft and nontender. No rebound, no guarding. NEUROLOGIC: The patient is awake, alert, oriented, able to communicate. EXTREMITIES: Bilateral leg, no edema. LABORATORY DATA: There is no new labs available today. Chemistry; sodium 140, potassium 3.2, chloride 96, CO2 35, BUN 58, creatinine 1.7, blood sugar of 123. ASSESSMENT: 1. Status post respiratory failure. 2. Chronic obstructive pulmonary disease. 3. Anxiety disorder. 4. Chronic atrial fibrillation. PLAN: I will order for CBC, CMP, PT, INR in a.m. Hellen Shipman MD
[2017-10-03] MEDS: MethylPREDNISolone 40 mg Vial IVP SCH ×3 (01:10→22:07)
[2017-10-03] MEDS: Acetylcysteine 20% Inhal Soln (4ml) IH SCH ×4 (02:12→21:26)
[2017-10-03] MEDS: Levalbuterol 1.25 MG/3 ML Inhal Soln UD IH SCH ×4 (02:12→21:26)
[2017-10-03 06:48] LABS: GRAN # 11.78 (1.4-6.5); GRAN % 91.4 % (50.0-68.0); LYMPH # 0.6 (1.2-3.4); LYMPH % 4.5 % (22.0-35.0); MEAN CELL VOLUME 95.1 fl (80.0-105.0); MEAN CORPUSCULAR HGB CONC 33.7 g/dl (31.0-37.0); MEAN PLATELET VOLUME 10.6 fl (7.0-11.0); MONO # 0.5 (0.1-0.6); MONO % 4.1 % (1.0-6.0); PLATELET COUNT 116 10^3/uL (120.0-450.0); RBC 2.03 10^6/uL (3.5-6.1); RED CELL DISTRIBUTION WIDTH 14.8 % (11.5-14.5); WHITE BLOOD COUNT 12.9 10^3/ul (4.5-11.0)
[2017-10-03 07:04] LABS: INR 1.62 (0.93-1.08); PROTHROMBIN TIME 18.8 SECONDS (9.4-12.5)
[2017-10-03 07:33] LABS: ALBUMIN 3.2 g/dL (3.0-4.8); CALCIUM 9.5 mg/dL (8.4-10.5)
[2017-10-03] MEDS: Budesonide 0.5 mg/2 ml Inhal Susp UD IH SCH ×2 (07:42→21:26)
[2017-10-03 08:00] LABS: HEMOGLOBIN 6.5 g/dL (12.0-16.0)
[2017-10-03] MEDS: Pantoprazole 40 mg EC Tab PO SCH (08:33)
[2017-10-03] MEDS ORDERED: Potassium Chloride 20 mEq ER Tab PO ONE (08:52)
[2017-10-03 09:21] LABS: ANISOCYTOSIS 1+; BAND 3 % (0-2); HYPOCHROMIA 3+; LYMPHOCYTE 5 % (22.0-35.0); MONOCYTE 2 % (1.0-6.0); NEUTROPHIL 90 % (50.0-70.0); OVALOCYTES SLIGHT; POIKILOCYTOSIS SLIGHT; TEAR DROP CELLS SLIGHT
[2017-10-03 09:22] LABS: PLATELET ESTIMATE SL DEC (NORMAL); POLYCHROMASIA 1+; TOXIC GRANULATION 2+
[2017-10-03 09:46] LABS: MAGNESIUM 1.4 mg/dL (1.7-2.2)
[2017-10-03 09:49] LABS: IRON 43 ug/dL (45-180)
[2017-10-03 09:59] LABS: % IRON SATURATION 24 % (20-55); TOTAL IRON BINDING CAPACITY 178 ug/dL (265-497)
[2017-10-03] MEDS: Saliva Substitute 44.3 ML PO SCH ×2 (12:12→17:43)
--- NOTE | 2017-10-03 12:26 | PN ---
DATE: 10/03/2017 SUBJECTIVE: The patient appears comfortable this morning. She is not short of breath at rest. She remains very, very weak appearing. PHYSICAL EXAMINATION: VITAL SIGNS: Temperature 98.4, pulse 88, respirations 16/18, blood pressure 118/67. Oxygen saturation on nasal cannula is 97%. HEENT: Normocephalic, atraumatic. No JVD. CARDIOVASCULAR: Systolic ejection murmur at the lower left sternal border. Positive S3 gallop. LUNGS: Decreased breath sounds at the bases with crackles. Less rhonchi. No wheezing. EXTREMITIES: Positive for mild edema. No cyanosis. No clubbing. Calves are nontender to palpation. GI: Abdomen is soft, nontender and nondistended. Bowel sounds are positive. SKIN: No acute rash. NEUROLOGIC: Exam limited at the present time. IMPRESSION: 1. Status post cardiopulmonary resuscitation. 2. Respiratory failure. 3. Advanced chronic obstructive pulmonary disease. 4. Congestive heart failure. 5. Probable underlying pneumonia. 6. Tkr-HC-avvbiiuxd myocardial infarction. 7. Right lower lobe lung mass. 8. Atelectasis, effusion - left lower lobe. 9. Cardiac arrhythmias. Ventricular tachycardia. PLAN: The patient appears comfortable this morning. She is not short of breath at rest. She remains very, very weak in appearance. She does complain of "pain all over". On physical exam, there is less bronchospasm noted. In addition, the alveolar-arterial gradient is much less. I will continue with the current nebulizer treatments and low-dose intravenous steroids (decreased yesterday) for now. The patient remains on antibiotic therapy - as per Infectious Disease. There are no temperatures noted. The leukocytosis has resolved. Clinical status of the patient is certainly improved - compared to the initial presentation. However, again, unfortunately, the future status/prognosis for this patient remains very poor. All are aware. I will discuss the above with Dr. Shipman. Iván Keys MD [facility]
[2017-10-03] MEDS ORDERED: Magnesium Sulfate 1 gm in D5W 1 GM/100 ML BAG IV ONE (12:44)
--- NOTE | 2017-10-03 13:23 | CP.PCM.CON ---
<Johnna Claire - Last Filed: 10/03/17 16:22> History of Present Illness - History of Present Illness History of Present Illness: GI consult note for Dr Medina's service Reason for consult: Anemia, r/o gi bleeding Patient is a 76 y/o Female with PMHx of chronic afib ( was on Coumadin), CAD, COPD, HTN, HLD, anxiety, L1/L2 compression fractures who initially was sent from sn[facility] on 09/25/17 for generalized weakness and SOB, became unresponsive, had cardiopulmonary arrest, underwent 90 sec of CPR with epi x1, returning to ROSC in about 2 minutes. Patient was suspected to have respiratory failure due to likely pneumonia versus COPD exacerbation, superimposed with NSTEMI. Patient also had CT chest revealing 3.4 x3 mass on the superior aspect of right lower lobe of the lung. Patient was intubated and extubated. Patient was since transferred to med/surg. Patient had blood work this morning revealing hgb of 6.5 from 8.4. GI is consulted to rule out GI bleeding. Patient is lying on the hospital bed, states she's having back pain. Denies abdominal pain, n/v/d. States she's has been loosing weight for the past 2 years. Unable to elaborate how much she'd loss. Had colonoscopy 20 years ago and it was normal, had EGD but doesn't remember the detail. PMHx: as above PSHx: cervical spine, left hip spine surgery, colonoscopy, cardiac cath. FMHx: Denies family history of cancer. Social: heavy tobacco, denies alcohol and illicit drug use. Home meds: as per chart. Review of Systems - Review of Systems All systems: reviewed and no additional remarkable complaints except Review of Systems: 12 point ROS reviewed, all negative except as per HPI. Past Patient History - Infectious Disease Hx of Infectious Diseases: None - Tetanus Immunizations Tetanus Immunization: Unknown - Past Medical History & Family History Past Medical History?: Yes - Past Social History Smoking Status: Heavy Smoker > 10 Cigarettes Daily - CARDIAC Hx Cardiac Disorders: Yes - PULMONARY Hx Chronic Obstructive Pulmonary Disease (COPD): Yes Hx Pneumonia: Yes - NEUROLOGICAL Hx Paralysis: No - HEENT Hx Cataracts: Yes (b/l cataracts no sx) Other/Comment: sx for detached retina right eye 2 days ago 2nd sx same eye uses silicone oil, first sx used gas bubble which did not work, visually impaired right eye sees shadows and diminished peripheral vision - RENAL Hx Chronic Kidney Disease: No - ENDOCRINE/METABOLIC Hx Endocrine Disorders: No - HEMATOLOGICAL/ONCOLOGICAL Hx Blood Transfusions: Yes Hx Blood Transfusion Reaction: No - INTEGUMENTARY Hx Dermatological Problems: No Other/Comment: rle varicone veins, dry skin to feet, buttocks reddened, multiple brown spots on upper back - MUSCULOSKELETAL/RHEUMATOLOGICAL Hx Musculoskeletal Disorders: Yes - GASTROINTESTINAL Hx Gastrointestinal Disorders: No - GENITOURINARY/GYNECOLOGICAL Hx Reproductive Disorders: No - PSYCHIATRIC Hx Emotional Abuse: No Hx Physical Abuse: No Hx Substance Use: No - SURGICAL HISTORY Hx Musculoskeletal Surgery: Yes (left hip replacement) Other/Comment: kyphoplasty - ANESTHESIA Hx Anesthesia Reactions: No Hx Malignant Hyperthermia: No Meds Allergies/Adverse Reactions: Allergies Allergy/AdvReac Type Severity Reaction Status Date / Time No Known Allergies Allergy Verified 09/25/17 04:14 - Medications Medications: Current Medications Acetylcysteine (Acetylcysteine 20%) 4 ml IH [id number] [facility] Last Admin: 10/03/17 07:43 Dose: 4 ml Alprazolam (Xanax) 0.25 mg PO TID PRN; Protocol PRN Reason: Anxiety Stop: 10/05/17 14:01 Last Admin: 10/02/17 14:38 Dose: 0.25 mg Aspirin (Ecotrin) 81 mg PO DAILY [facility] Last Admin: 10/03/17 10:33 Dose: 81 mg Atorvastatin Calcium (Lipitor) 40 mg PO [facility] Last Admin: 10/02/17 21:34 Dose: 40 mg Budesonide (Pulmicort Respules) 0.5 mg IH [id number] [facility] Last Admin: 10/03/17 07:42 Dose: 0.5 mg Doxycycline Hyclate (Doryx) 100 mg PO Q12 [facility] PRN Reason: Protocol Stop: 10/07/17 22:01 Last Admin: 10/03/17 10:34 Dose: 100 mg Duloxetine HCl (Cymbalta) 30 mg PO [facility] Last Admin: 10/02/17 21:34 Dose: 30 mg Furosemide (Lasix) 40 mg IVP DAILY [facility] Last Admin: 10/03/17 10:34 Dose: 40 mg Magnesium Sulfate/Dextrose (Magnesium Sulfate 1 Gm/100 Ml D5w) 1 gm in 100 mls @ 100 mls/hr IV ONCE ONE Stop: 10/03/17 13:43 Levalbuterol HCl (Xopenex) 1.25 mg IH [id number] [facility] Last Admin: 10/03/17 07:42 Dose: 1.25 mg Magnesium Oxide (Mag-Ox) 400 mg PO TID [facility] Methylprednisolone (Solu-Medrol) 20 mg IVP Q12 [facility] Last Admin: 10/03/17 10:34 Dose: 20 mg Oxycodone/Acetaminophen (Percocet 5/325 Mg Tab) 1 tab PO Q6H PRN PRN Reason: Pain, moderate (4-7) Stop: 10/05/17 10:43 Last Admin: 10/02/17 17:07 Dose: 1 tab Pantoprazole Sodium (Protonix Ec Tab) 40 mg PO ACB [facility] Last Admin: 10/03/17 08:33 Dose: 40 mg Saliva Substitute (Saliva Substitute) 1 ml PO BID [facility] Last Admin: 10/03/17 12:12 Dose: 1 ml Warfarin Sodium (Coumadin) 5 mg PO 1800 [facility] PRN Reason: Protocol Last Admin: 10/02/17 17:08 Dose: 5 mg Physical Exam - Constitutional Appears: No Acute Distress, Cachectic, Chronically Ill - Head Exam Head Exam: ATRAUMATIC, NORMAL INSPECTION, NORMOCEPHALIC - Eye Exam Eye Exam: EOMI, Normal appearance, PERRL. absent: Scleral icterus - ENT Exam ENT Exam: Mucous Membranes Dry - Neck Exam Neck exam: Positive for: Normal Inspection - Respiratory Exam Respiratory Exam: Clear to Auscultation Bilateral, NORMAL BREATHING PATTERN. absent: Rales, Rhonchi, Wheezes, Respiratory Distress, Stridor - Cardiovascular Exam Cardiovascular Exam: Irregular Rhythm, REGULAR RHYTHM, +S1, +S2, Systolic Murmur. absent: Gallop, JVD, Rubs - GI/Abdominal Exam GI & Abdominal Exam: Normal Bowel Sounds, Soft. absent: Diminished Bowel Sounds , Distended, Firm, Guarding, Mass, Organomegaly, Rebound, Rigid, Tenderness - Rectal Exam Rectal Exam: absent: Black Stool, Bloody Stool, Hemorrhoids, Fecal Impaction Additional comments: + erythema of the sacral and buttocks region. - Extremities Exam Extremities exam: Positive for: normal inspection. Negative for: pedal edema - Back Exam Back exam: NORMAL INSPECTION - Neurological Exam Neurological exam: Alert, Oriented x3 - Psychiatric Exam Psychiatric exam: Depressed - Skin Skin Exam: Dry, Normal Color Results - Vital Signs Recent Vital Signs: Last Vital Signs Temp 98.3 F 10/03/17 13:05 Pulse 107 H 10/03/17 13:05 Resp 18 10/03/17 13:05 BP 134/80 10/03/17 13:05 Pulse Ox 93 L 10/03/17 07:30 - Labs Result Diagrams: 10/03/17 06:20 10/03/17 06:20 Labs: Laboratory Results - last 24 hr 09/28/17 10/02/17 10/02/17 13:00 15:10 19:10 WBC RBC Hgb Hct MCV MCH MCHC RDW Plt Count MPV Gran % Lymph % (Auto) [place] % (Auto) Eos % (Auto) Baso % (Auto) Gran # Lymph # [place] # Eos # Baso # Neutrophils % (Manual) Band Neutrophils % Lymphocytes % (Manual) Monocytes % (Manual) Toxic Granulation Platelet Evaluation Polychromasia Hypochromasia Poikilocytosis (manual Anisocytosis (manual) Tear Drop Cells Ovalocytes ESR PT 14.6 H INR 1.27 H APTT 52.5 H Sodium 140 Potassium 3.2 L Chloride 96 L Carbon Dioxide 35 H Anion Gap 12 BUN 58 H Creatinine 1.7 H Est GFR ( Amer) 36 Est GFR (Non-Af Amer) 29 Random Glucose 123 H Calcium 9.8 Magnesium Iron TIBC % Saturation Total Bilirubin 0.9 AST 41 H D ALT 41 Alkaline Phosphatase 46 Total Protein 6.1 Albumin 3.2 Globulin 3.0 Albumin/Globulin Ratio 1.1 Influenza Type A Ab <1:8 Influenza Type B Ab <1:8 Blood Type Antibody Screen Crossmatch BBK History Checked 10/03/17 10/03/17 10/03/17 06:20 06:20 06:20 WBC 12.9 H D RBC 2.03 L Hgb 6.5 L* Hct 19.3 L* MCV 95.1 MCH 32.0 MCHC 33.7 RDW 14.8 H Plt Count 116 L MPV 10.6 Gran % 91.4 H Lymph % (Auto) 4.5 L [place] % (Auto) 4.1 Eos % (Auto) 0.0 L Baso % (Auto) 0.0 Gran # 11.78 H Lymph # 0.6 L [place] # 0.5 Eos # 0.0 Baso # 0.00 Neutrophils % (Manual) 90 H Band Neutrophils % 3 H Lymphocytes % (Manual) 5 L Monocytes % (Manual) 2 Toxic Granulation 2+ Platelet Evaluation Sl dec Polychromasia 1+ Hypochromasia 3+ Poikilocytosis (manual Slight Anisocytosis (manual) 1+ Tear Drop Cells Slight Ovalocytes Slight ESR PT 18.8 H INR 1.62 H APTT Sodium 142 Potassium 3.4 L Chloride 97 L Carbon Dioxide 38 H Anion Gap 11 BUN 68 H Creatinine 1.7 H Est GFR ( Amer) 36 Est GFR (Non-Af Amer) 29 Random Glucose 103 Calcium 9.5 Magnesium Iron TIBC % Saturation Total Bilirubin 1.0 AST 55 H D ALT 37 Alkaline Phosphatase 45 Total Protein 6.2 Albumin 3.2 Globulin 3.0 Albumin/Globulin Ratio 1.0 L Influenza Type A Ab Influenza Type B Ab Blood Type Antibody Screen Crossmatch BBK History Checked 10/03/17 10/03/17 10/03/17 06:40 08:49 09:00 WBC RBC Hgb Hct MCV MCH MCHC RDW Plt Count MPV Gran % Lymph % (Auto) [place] % (Auto) Eos % (Auto) Baso % (Auto) Gran # Lymph # [place] # Eos # Baso # Neutrophils % (Manual) Band Neutrophils % Lymphocytes % (Manual) Monocytes % (Manual) Toxic Granulation Platelet Evaluation Polychromasia Hypochromasia Poikilocytosis (manual Anisocytosis (manual) Tear Drop Cells Ovalocytes ESR PT INR APTT 52.2 H Sodium Potassium Chloride Carbon Dioxide Anion Gap BUN Creatinine Est GFR ( Amer) Est GFR (Non-Af Amer) Random Glucose Calcium Magnesium 1.4 L Iron 43 L TIBC 178 L % Saturation 24 Total Bilirubin AST ALT Alkaline Phosphatase Total Protein Albumin Globulin Albumin/Globulin Ratio Influenza Type A Ab Influenza Type B Ab Blood Type Antibody Screen Crossmatch BBK History Checked 10/03/17 10/03/17 09:00 09:00 WBC RBC Hgb Hct MCV MCH MCHC RDW Plt Count MPV Gran % Lymph % (Auto) [place] % (Auto) Eos % (Auto) Baso % (Auto) Gran # Lymph # [place] # Eos # Baso # Neutrophils % (Manual) Band Neutrophils % Lymphocytes % (Manual) Monocytes % (Manual) Toxic Granulation Platelet Evaluation Polychromasia Hypochromasia Poikilocytosis (manual Anisocytosis (manual) Tear Drop Cells Ovalocytes ESR 45 H PT INR APTT Sodium Potassium Chloride Carbon Dioxide Anion Gap BUN Creatinine Est GFR ( Amer) Est GFR (Non-Af Amer) Random Glucose Calcium Magnesium Iron TIBC % Saturation Total Bilirubin AST ALT Alkaline Phosphatase Total Protein Albumin Globulin Albumin/Globulin Ratio Influenza Type A Ab Influenza Type B Ab Blood Type A POSITIVE Antibody Screen Negative Crossmatch See Detail BBK History Checked Patient has bt Assessment & Plan - Assessment and Plan (Free Text) Assessment: Patient is a 76 y/o Female with PMHx of chronic afib ( was on Coumadin), CAD, COPD, HTN, HLD, anxiety, L1/L2 compression fractures who initially was sent from sn[facility] on 09/25/17 for generalized weakness and SOB, became unresponsive, had cardiopulmonary arrest, regained ROSC in about 2 minutes, s/p intubation and extubation. Patient has acute drop in hgb this morning thus GI is being consulted to evaluate for Gi bleeding. HGB dropped from 8.4 to 6.5, with upward trending bun/creat ratio. Upon reviewing the chart, patient was also on heparin drip briefly due to suspicion for Nstemi. Was on Coumadin which was held. Patient is currently on ASA. Acute on chronic anemia r/o Gi bleeding , Upper versus lower Gi bleeding- with differentials including angiodysplasia, neoplasia, versus hemorrhoids, less likely colitis. Thrombocytopenia CAD COPD Lung mass cardiopulmonary arrest Respiratory failure s/p intubation/extubation HTN HLD Compression fractures Chronic afib ( was on Coumadin) Chronic tobacco abuse Plan: - NPO past midnight for possible EGD tomorrow - Patient appears hemodynamically stable - Patient to get 2 units of prbc - Follow up and trend H/H - Continue with PPI - No urgent need of colonoscopy and EGD at this time - Continue with medical management as per primary - Will follow the clinical course Patient seen, examined and case discussed with Gi fellow and Dr Medina. - Date & Time Date: 09/26/17 Time: 14:00 <Jomar Medina - Last Filed: 10/03/17 22:19> Meds - Medications Medications: Current Medications Acetylcysteine (Acetylcysteine 20%) 4 ml IH [id number] [facility] Last Admin: 10/03/17 21:26 Dose: Not Given Alprazolam (Xanax) 0.25 mg PO TID PRN; Protocol PRN Reason: Anxiety Stop: 10/05/17 14:01 Last Admin: 10/02/17 14:38 Dose: 0.25 mg Aspirin (Ecotrin) 81 mg PO DAILY [facility] Last Admin: 10/03/17 10:33 Dose: 81 mg Atorvastatin Calcium (Lipitor) 40 mg PO HS [facility] Last Admin: 10/03/17 22:07 Dose: 40 mg Budesonide (Pulmicort Respules) 0.5 mg IH [id number] [facility] Last Admin: 10/03/17 21:26 Dose: Not Given Doxycycline Hyclate (Doryx) 100 mg PO Q12 [facility] PRN Reason: Protocol Stop: 10/07/17 22:01 Last Admin: 10/03/17 22:07 Dose: 100 mg Duloxetine HCl (Cymbalta) 30 mg PO HS [facility] Last Admin: 10/03/17 22:07 Dose: 30 mg Furosemide (Lasix) 40 mg IVP DAILY [facility] Last Admin: 10/03/17 10:34 Dose: 40 mg Levalbuterol HCl (Xopenex) 1.25 mg IH [id number] [facility] Last Admin: 10/03/17 21:26 Dose: Not Given Magnesium Oxide (Mag-Ox) 400 mg PO TID [facility] Last Admin: 10/03/17 17:43 Dose: 400 mg Methylprednisolone (Solu-Medrol) 20 mg IVP Q12 [facility] Last Admin: 10/03/17 22:07 Dose: 20 mg Oxycodone/Acetaminophen (Percocet 5/325 Mg Tab) 1 tab PO Q6H PRN PRN Reason: Pain, moderate (4-7) Stop: 10/05/17 10:43 Last Admin: 10/03/17 15:50 Dose: 1 tab Pantoprazole Sodium (Protonix Ec Tab) 40 mg PO ACB [facility] Last Admin: 10/03/17 08:33 Dose: 40 mg Saliva Substitute (Saliva Substitute) 1 ml PO BID [facility] Last Admin: 10/03/17 17:43 Dose: 1 ml Warfarin Sodium (Coumadin) 5 mg PO 1800 [facility] PRN Reason: Protocol Last Admin: 10/02/17 17:08 Dose: 5 mg Results - Vital Signs Recent Vital Signs: Last Vital Signs Temp 98.1 F 10/03/17 16:27 Pulse 95 H 10/03/17 16:27 Resp 22 10/03/17 16:27 BP 125/77 10/03/17 16:27 Pulse Ox 100 10/03/17 16:27 - Labs Result Diagrams: 10/03/17 06:20 10/03/17 06:20 Labs: Laboratory Results - last 24 hr 10/03/17 10/03/17 10/03/17 06:20 06:20 06:20 WBC 12.9 H D RBC 2.03 L Hgb 6.5 L* Hct 19.3 L* MCV 95.1 MCH 32.0 MCHC 33.7 RDW 14.8 H Plt Count 116 L MPV 10.6 Gran % 91.4 H Lymph % (Auto) 4.5 L [place] % (Auto) 4.1 Eos % (Auto) 0.0 L Baso % (Auto) 0.0 Gran # 11.78 H Lymph # 0.6 L [place] # 0.5 Eos # 0.0 Baso # 0.00 Neutrophils % (Manual) 90 H Band Neutrophils % 3 H Lymphocytes % (Manual) 5 L Monocytes % (Manual) 2 Toxic Granulation 2+ Platelet Evaluation Sl dec Polychromasia 1+ Hypochromasia 3+ Poikilocytosis (manual Slight Anisocytosis (manual) 1+ Tear Drop Cells Slight Ovalocytes Slight ESR PT 18.8 H INR 1.62 H APTT Sodium 142 Potassium 3.4 L Chloride 97 L Carbon Dioxide 38 H Anion Gap 11 BUN 68 H Creatinine 1.7 H Est GFR ( Amer) 36 Est GFR (Non-Af Amer) 29 Random Glucose 103 Calcium 9.5 Magnesium Iron TIBC % Saturation Total Bilirubin 1.0 Transferrin AST 55 H D ALT 37 Alkaline Phosphatase 45 Ferritin Total Protein 6.2 Albumin 3.2 Globulin 3.0 Albumin/Globulin Ratio 1.0 L Vitamin B12 Folate Blood Type Antibody Screen Crossmatch BBK History Checked 10/03/17 10/03/17 10/03/17 06:40 08:49 09:00 WBC RBC Hgb Hct MCV MCH MCHC RDW Plt Count MPV Gran % Lymph % (Auto) [place] % (Auto) Eos % (Auto) Baso % (Auto) Gran # Lymph # [place] # Eos # Baso # Neutrophils % (Manual) Band Neutrophils % Lymphocytes % (Manual) Monocytes % (Manual) Toxic Granulation Platelet Evaluation Polychromasia Hypochromasia Poikilocytosis (manual Anisocytosis (manual) Tear Drop Cells Ovalocytes ESR PT INR APTT 52.2 H Sodium Potassium Chloride Carbon Dioxide Anion Gap BUN Creatinine Est GFR ( Amer) Est GFR (Non-Af Amer) Random Glucose Calcium Magnesium 1.4 L Iron 43 L TIBC 178 L % Saturation 24 Total Bilirubin Transferrin AST ALT Alkaline Phosphatase Ferritin 441.0 Total Protein Albumin Globulin Albumin/Globulin Ratio Vitamin B12 802 Folate 17.2 Blood Type Antibody Screen Crossmatch BBK History Checked 10/03/17 10/03/17 10/03/17 09:00 09:00 09:00 WBC RBC Hgb Hct MCV MCH MCHC RDW Plt Count MPV Gran % Lymph % (Auto) [place] % (Auto) Eos % (Auto) Baso % (Auto) Gran # Lymph # [place] # Eos # Baso # Neutrophils % (Manual) Band Neutrophils % Lymphocytes % (Manual) Monocytes % (Manual) Toxic Granulation Platelet Evaluation Polychromasia Hypochromasia Poikilocytosis (manual Anisocytosis (manual) Tear Drop Cells Ovalocytes ESR 45 H PT INR APTT Sodium Potassium Chloride Carbon Dioxide Anion Gap BUN Creatinine Est GFR ( Amer) Est GFR (Non-Af Amer) Random Glucose Calcium Magnesium Iron TIBC % Saturation Total Bilirubin Transferrin 122.84 L AST ALT Alkaline Phosphatase Ferritin Total Protein Albumin Globulin Albumin/Globulin Ratio Vitamin B12 Folate Blood Type A POSITIVE Antibody Screen Negative Crossmatch See Detail BBK History Checked Patient has bt Attending/Attestation - Attestation I have personally seen and examined this patient.: Yes I have fully participated in the care of the patient.: Yes I have reviewed all pertinent clinical information: Yes Notes (Text): 10/03/17 22:17 76 year old female with h/o Afib, CAD, COPD, HTN, HLD a/w SOB, cardiac arrest, NSTEMI with drop in Hgb in the setting of anticoagulation. 1. Upper GI bleeding 2. Anemia Plan: - no overt blood loss noted, although hgb dropped significantly and BUN is rising relative to creatinine - patient is at high risk for PUD - Recommend IV PPI and blood transfusion - hold anticoagulation - NPO after MN, though will likely defer EGD unless she has significant bleeding considering her condition/comorbidites
[2017-10-03] MEDS: Magnesium Oxide 400 mg Tab UD PO SCH ×2 (14:53→17:43)
--- NOTE | 2017-10-03 14:59 | PN ---
DATE: SUBJECTIVE: The patient is 76-year-old seen and examined. Mild shortness of breath, states "I do not feel good today." She states she does not have appetite. PHYSICAL EXAMINATION VITAL SIGNS: She is afebrile. Pulse respirations 18, and blood pressure 137/72. LUNGS: Bilateral decreased breath sounds. HEART: S1 and S2, audible. ABDOMEN: Soft, slight epigastric discomfort. NEUROLOGIC: She is awake, alert, oriented, and communicative. LABORATORY DATA: WBC 12.9, hemoglobin 6.5, hematocrit 19.3, and platelets are 116. PT is 18.8 and INR is 1.62. Chemistry sodium 142, potassium 3.4, chloride 97, CO2 30, BUN creatinine 1.7, blood sugar 102, and magnesium is 1.4. ASSESSMENT: 1. Symptomatic anemia. 2. Respiratory insufficiency. 3. Bilateral pneumonia. 4. Status post respiratory failure. 5. Intubation followed by extubation. 6. Chronic atrial fibrillation. 7. Probably gastrointestinal bleed. 8. Hypomagnesemia. PLAN: We will supplement her potassium. I will hold her Coumadin today. Discontinue her heparin. Continue her on doxycycline. GI consult by Dr. Medina has been requested. Potassium has been supplemented and I will supplement magnesium also. We will follow up electrolytes in the a.m. Overall prognosis is poor. The patient has multiple issues that need to be addressed. However, she is DNR. Family does not want aggressive measures, however, wanted to be supported medically. Hellen Shipman MD
[2017-10-03] MEDS: Oxycodone/Acetaminophen 5/325 mg Tab PO PRN (15:50)
[2017-10-03 17:23] LABS: FOLATE 17.2 ng/mL
--- NOTE | 2017-10-03 18:38 | PN ---
DATE: 10/03/2017 SUBJECTIVE: The patient is without shortness of breath, without chest pain. She is weak diffusely. PHYSICAL EXAMINATION: VITAL SIGNS: Blood pressure is 134/80, heart rate is in the 90s. NECK: Negative JVD. LUNGS: Without rales. HEART: S1, S2. EXTREMITIES: Without edema. LABORATORY DATA: Hemoglobin is 6.5. Chemistry, BUN and creatinine 68 and 1.7. IMPRESSION: 1. Status post cardiopulmonary arrest. 2. Marked anemia. 3. History of documented coronary artery disease. 4. Recent non-ST elevation myocardial infarction. 5. Lung mass. 6. Weakness. PLAN: Given these findings, the patient is being evaluated by hematology. The patient may need packed red blood cells. Sanju Rich MD
--- NOTE | 2017-10-04 01:03 | PN ---
DATE: 10/03/2017 SUBJECTIVE: The patient is in bed in no acute distress, nontoxic. PHYSICAL EXAMINATION: VITAL SIGNS: Temperature is 98, blood pressure is 120/70, respiratory rate of 22. HEENT: Examination of HEENT is unremarkable. NECK: Supple. LUNGS: Have decreased breath sounds. HEART: Normal S1, S2. ABDOMEN: Soft, nontender. LABORATORY EXAMINATION: Reveals a white count of 12,900, hemoglobin of 6.5, and platelets of 116. Chemistries reveals a BUN of 68, creatinine of 1.5. Procalcitonin is 0.49. Influenza is negative. Urine for Legionella antigen is negative. The patient is on p.o. doxycycline. ASSESSMENT/PLAN: This is a 76-year-old female who was seen early this morning in room 561, bed 2 with severe sepsis due to healthcare-associated pneumonia on top of acute diastolic congestive heart failure with chronic congestive heart failure and atrial fibrillation, chronic obstructive lung disease, hypertension, dyslipidemia, history of compression fracture and status post seven days of cefepime, day number nine of doxycycline. The patient is at risk for developing nosocomial infections. We will discontinue the doxycycline within the next 24 hours. Jean Dawn MD
[2017-10-04 07:10] LABS: GRAN # 11.6 (1.4-6.5); GRAN % 92.7 % (50.0-68.0); HEMOGLOBIN 8.7 g/dL (12.0-16.0); LYMPH # 0.4 (1.2-3.4); LYMPH % 3.5 % (22.0-35.0); MEAN CELL VOLUME 89.5 fl (80.0-105.0); MEAN CORPUSCULAR HEMOGLOBIN 30.5 pg (25.0-35.0); MEAN CORPUSCULAR HGB CONC 34.1 g/dl (31.0-37.0); MONO # 0.5 (0.1-0.6); MONO % 3.8 % (1.0-6.0); RBC 2.85 10^6/uL (3.5-6.1); RED CELL DISTRIBUTION WIDTH 15.9 % (11.5-14.5); WHITE BLOOD COUNT 12.5 10^3/ul (4.5-11.0)
[2017-10-04 07:25] LABS: INR 1.88 (0.93-1.08); PARTIAL THROMBOPLASTIN TIME 31.9 Seconds (25.1-36.5); PROTHROMBIN TIME 21.9 SECONDS (9.4-12.5)
[2017-10-04 07:38] LABS: CALCIUM 9.9 mg/dL (8.4-10.5); MAGNESIUM 1.9 mg/dL (1.7-2.2)
[2017-10-04] MEDS: Budesonide 0.5 mg/2 ml Inhal Susp UD IH SCH (07:56)
[2017-10-04] MEDS: Levalbuterol 1.25 MG/3 ML Inhal Soln UD IH SCH ×2 (07:59→14:09)
[2017-10-04] MEDS: Acetylcysteine 20% Inhal Soln (4ml) IH SCH ×2 (08:00→14:09)
[2017-10-04] MEDS: Pantoprazole 40 mg EC Tab PO SCH (08:30)
--- NOTE | 2017-10-04 08:34 | PN ---
DATE: 10/04/2017 PULMONARY NOTE SUBJECTIVE: The patient appears comfortable this morning. She is not short of breath at rest. She remains extremely weak appearing. OBJECTIVE: VITALS: Temperature is 98.3, pulse 97, respirations 18/20, blood pressure 148/81. Oxygen saturation on nasal cannula is 92%-100%. HEENT: Normocephalic, atraumatic. No JVD. CARDIOVASCULAR: Systolic ejection murmur at the lower left sternal border. Positive S3 gallop. LUNGS: Decreased breath sounds at the bases with crackles. Minimal bilateral rhonchi. No wheezing. EXTREMITIES: Positive for mild edema. No cyanosis, no clubbing. Calves are nontender to palpation. GI: Abdomen is soft, nontender, and nondistended. Bowel sounds are positive. SKIN: No acute rash. NEUROLOGIC: Limited at the present time. IMPRESSION: 1. Status post cardiopulmonary resuscitation. 2. Respiratory failure. 3. Advanced chronic obstructive pulmonary disease. 4. Congestive heart failure. 5. Probable underlying pneumonia. 6. Non-ST elevation myocardial infarction. 7. Right lower lobe lung mass. 8. Atelectasis, effusion - left lower lobe. 9. Cardiac arrhythmias. Ventricular tachycardia. 10. Worsening anemia. PLAN: The patient appears comfortable this morning. She is not short of breath at rest. She remains extremely weak appearing. On physical exam, only minimal bronchospasm is noted. I will continue with the current nebulizer treatments and low-dose intravenous steroids (decreased yesterday) for now. Repeat a.m. labs are pending. Input by GI and Infectious Disease are noted. Input by Dr. Rich (Cardiology) is also noted. Clinical status of the patient is improved - compared to the initial presentation. However, again, the future status/prognosis for this patient remains very poor. All are aware. I will discuss the above with the attending physician. Iván Keys MD MTDJulia
[2017-10-04] MEDS: Magnesium Oxide 400 mg Tab UD PO SCH (10:30)
[2017-10-04] MEDS: Saliva Substitute 44.3 ML PO SCH (10:30)
[2017-10-04] MEDS: MethylPREDNISolone 40 mg Vial IVP SCH ×2 (11:44→21:21)
--- NOTE | 2017-10-04 12:47 | CP.PCM.PN ---
Subjective - Date & Time of Evaluation Date of Evaluation: 10/04/17 Time of Evaluation: 13:00 - Subjective Subjective: Anxious. Dyspneic, weak. Objective - Vital Signs/Intake and Output Vital Signs (last 24 hours): Temp Pulse Resp BP Pulse Ox 98.3 F 97 H 20 148/91 H 92 L 10/04/17 07:30 10/04/17 07:30 10/04/17 07:30 10/04/17 11:45 10/04/17 07:30 Intake and Output: 10/04/17 10/04/17 06:59 18:59 Intake Total 575 Balance 575 - Medications Medications: Current Medications Acetylcysteine (Acetylcysteine 20%) 4 ml IH [id number] [facility] Last Admin: 10/04/17 08:00 Dose: Not Given Alprazolam (Xanax) 0.25 mg PO TID PRN; Protocol PRN Reason: Anxiety Stop: 10/05/17 14:01 Last Admin: 10/02/17 14:38 Dose: 0.25 mg Aspirin (Ecotrin) 81 mg PO DAILY [facility] Last Admin: 10/04/17 10:30 Dose: Not Given Atorvastatin Calcium (Lipitor) 40 mg PO HS [facility] Last Admin: 10/03/17 22:07 Dose: 40 mg Budesonide (Pulmicort Respules) 0.5 mg IH [id number] [facility] Last Admin: 10/04/17 07:56 Dose: 0.5 mg Doxycycline Hyclate (Doryx) 100 mg PO Q12 [facility] PRN Reason: Protocol Stop: 10/07/17 22:01 Last Admin: 10/04/17 10:30 Dose: Not Given Duloxetine HCl (Cymbalta) 30 mg PO HS [facility] Last Admin: 10/03/17 22:07 Dose: 30 mg Levalbuterol HCl (Xopenex) 1.25 mg IH [id number] [facility] Last Admin: 10/04/17 07:59 Dose: 1.25 mg Magnesium Oxide (Mag-Ox) 400 mg PO DAILY [facility] Last Admin: 10/04/17 10:30 Dose: Not Given Methylprednisolone (Solu-Medrol) 20 mg IVP Q12 [facility] Last Admin: 10/04/17 11:44 Dose: 20 mg Oxycodone/Acetaminophen (Percocet 5/325 Mg Tab) 1 tab PO Q6H PRN PRN Reason: Pain, moderate (4-7) Stop: 10/05/17 10:43 Last Admin: 10/03/17 15:50 Dose: 1 tab Pantoprazole Sodium (Protonix Ec Tab) 40 mg PO ACB [facility] Last Admin: 10/04/17 08:30 Dose: Not Given Saliva Substitute (Saliva Substitute) 1 ml PO BID [facility] Last Admin: 10/04/17 10:30 Dose: Not Given Warfarin Sodium (Coumadin) 5 mg PO 1800 [facility] PRN Reason: Protocol Last Admin: 10/02/17 17:08 Dose: 5 mg - Labs Labs: 10/04/17 06:30 10/04/17 06:30 PT 21.9 SECONDS (9.4-12.5) H 10/04/17 06:30 INR 1.88 (0.93-1.08) H 10/04/17 06:30 APTT 31.9 Seconds (25.1-36.5) 10/04/17 06:30 - Constitutional Appears: Cachectic, Chronically Ill - Eye Exam Eye Exam: Normal appearance, PERRL - ENT Exam ENT Exam: Mucous Membranes Moist, Normal Oropharynx - Respiratory Exam Respiratory Exam: Decreased Breath Sounds, Rhonchi Additional comments: dyspnea - Cardiovascular Exam Cardiovascular Exam: Tachycardia, +S1, +S2 - GI/Abdominal Exam GI & Abdominal Exam: Soft, Normal Bowel Sounds - Extremities Exam Extremities Exam: Normal Capillary Refill, Normal Inspection - Back Exam Back Exam: CVA tenderness (L) - Psychiatric Exam Psychiatric exam: Anxious - Skin Skin Exam: Dry, Pallor Assessment and Plan - Assessment and Plan (Free Text) Assessment: 76 year old female with history of A Fib, CHF, COPD,HTN who was admitted with dyspnea, hypoxia, hypercapnea s/p extubation,sepsis, pneumonia, RI, anemia, lung mass. The patient is anxious, frustrated. States she feels as if she is getting worse. States shes tired if being hospitalized. She is awaiting EGD procedure. I spoke with patients daughter Carolee via phone. Daughter recognizes that her mother does not seem to be improving and that in fact she seems weaker and more debilitated. Daughter is concerned about quality of life and future needs. We arranged to meet tomorrow to discuss options for care. Given multiple comorbidities and guarded/poor prognosis, will offer hospice as an additional option. Time spent in goals of care discussion with daughter, 20 minutes Plan: Palliative support in establishing goals of care
--- NOTE | 2017-10-04 13:04 | CP.PCM.PN ---
<StephenErick - Last Filed: 10/04/17 13:15> Subjective - Date & Time of Evaluation Date of Evaluation: 10/04/17 Time of Evaluation: 10:00 - Subjective Subjective: PGY5 GI Fellow Progress Note Patient seen and examined bedside this morning. The patient is frustrated that she has not eaten/drank today and is thirsty. No events overnight and has not had any episodes of melena, hematochezia or hematemesis since admission. S/P two units of blood yesterday. Admits to generalized fatigue, weakness and back pain. 12 system ROS performed and negative except where stated. Objective - Vital Signs/Intake and Output Vital Signs (last 24 hours): Temp Pulse Resp BP Pulse Ox 98.3 F 97 H 20 148/91 H 92 L 10/04/17 07:30 10/04/17 07:30 10/04/17 07:30 10/04/17 11:45 10/04/17 07:30 Intake and Output: 10/04/17 10/04/17 06:59 18:59 Intake Total 575 Balance 575 - Medications Medications: Current Medications Acetylcysteine (Acetylcysteine 20%) 4 ml IH [id number] [facility] Last Admin: 10/04/17 08:00 Dose: Not Given Alprazolam (Xanax) 0.25 mg PO TID PRN; Protocol PRN Reason: Anxiety Stop: 10/05/17 14:01 Last Admin: 10/02/17 14:38 Dose: 0.25 mg Aspirin (Ecotrin) 81 mg PO DAILY [facility] Last Admin: 10/04/17 10:30 Dose: Not Given Atorvastatin Calcium (Lipitor) 40 mg PO [facility] Last Admin: 10/03/17 22:07 Dose: 40 mg Budesonide (Pulmicort Respules) 0.5 mg IH [id number] [facility] Last Admin: 10/04/17 07:56 Dose: 0.5 mg Doxycycline Hyclate (Doryx) 100 mg PO Q12 [facility] PRN Reason: Protocol Stop: 10/07/17 22:01 Last Admin: 10/04/17 10:30 Dose: Not Given Duloxetine HCl (Cymbalta) 30 mg PO [facility] Last Admin: 10/03/17 22:07 Dose: 30 mg Levalbuterol HCl (Xopenex) 1.25 mg IH [id number] [facility] Last Admin: 10/04/17 07:59 Dose: 1.25 mg Magnesium Oxide (Mag-Ox) 400 mg PO DAILY [facility] Last Admin: 10/04/17 10:30 Dose: Not Given Methylprednisolone (Solu-Medrol) 20 mg IVP Q12 [facility] Last Admin: 10/04/17 11:44 Dose: 20 mg Oxycodone/Acetaminophen (Percocet 5/325 Mg Tab) 1 tab PO Q6H PRN PRN Reason: Pain, moderate (4-7) Stop: 10/05/17 10:43 Last Admin: 10/03/17 15:50 Dose: 1 tab Pantoprazole Sodium (Protonix Ec Tab) 40 mg PO ACB [facility] Last Admin: 10/04/17 08:30 Dose: Not Given Saliva Substitute (Saliva Substitute) 1 ml PO BID [facility] Last Admin: 10/04/17 10:30 Dose: Not Given Warfarin Sodium (Coumadin) 5 mg PO 1800 [facility] PRN Reason: Protocol Last Admin: 10/02/17 17:08 Dose: 5 mg - Labs Labs: 10/04/17 06:30 10/04/17 06:30 PT 21.9 SECONDS (9.4-12.5) H 10/04/17 06:30 INR 1.88 (0.93-1.08) H 10/04/17 06:30 APTT 31.9 Seconds (25.1-36.5) 10/04/17 06:30 - Constitutional Appears: Cachectic, Chronically Ill - Eye Exam Eye Exam: EOMI, PERRL - ENT Exam ENT Exam: Mucous Membranes Dry - Respiratory Exam Respiratory Exam: Decreased Breath Sounds. absent: Rales, Rhonchi, Wheezes - Cardiovascular Exam Cardiovascular Exam: RRR, +S1, +S2, Murmur (holosystolic) - GI/Abdominal Exam GI & Abdominal Exam: Soft, Normal Bowel Sounds. absent: Distended, Firm, Guarding, Rigid, Tenderness, Organomegaly - Extremities Exam Extremities Exam: Normal Inspection. absent: Pedal Edema - Neurological Exam Neurological Exam: Alert, Awake, Oriented x3 - Psychiatric Exam Psychiatric exam: Depressed - Skin Skin Exam: Dry, Warm Assessment and Plan - Assessment and Plan (Free Text) Assessment: Patient is a 76yo female with PMHx significant for atrial fibrillation, CAD, COPD, HTN, HLD who [facility]aise, SOB and subsequently suffered cardiac arrest/NSTEMI s/p ACLS with ROSC , acute respiratory failure s/p mechanical ventilation who had new onset anemia in the setting of anticoagulation. -Anemia -S/P cardiac arrest/NSTEMI -S/P acute respiratory failure requiring mechanical ventilation -Lung mass Plan: -No overt blood loss noted since admission in the form of melena, hematochezia or hematemesis -On PPI therapy and would continue -S/P 2 units PRBCs with appropriate response of HGB -Continue to monitor CBC and for any acute signs of bleeding -Patient/family to meet with staff re: palliative care tomorrow, agree with this approach given new lung mass and multiple ongoing severe co-morbid conditions -No plan for endoscopic interventions at this time, unless overt bleeding noted -Can consider resuming anticoagulation and monitoring CBC on therapy once again -Diet as tolerated Thank you for allowing us to participate in the care of this patient. Will sign off. Please reconsult if needed. <Kaylyn Jackson MD - Last Filed: 10/04/17 17:42> Objective - Vital Signs/Intake and Output Vital Signs (last 24 hours): Temp Pulse Resp BP Pulse Ox 98.3 F 97 H 20 148/91 H 92 L 10/04/17 07:30 10/04/17 07:30 10/04/17 07:30 10/04/17 11:45 10/04/17 07:30 Intake and Output: 10/04/17 10/04/17 06:59 18:59 Intake Total 575 240 Balance 575 240 - Medications Medications: Current Medications Acetylcysteine (Acetylcysteine 20%) 4 ml IH [id number] [facility] Last Admin: 10/04/17 14:09 Dose: Not Given Alprazolam (Xanax) 0.25 mg PO TID PRN; Protocol PRN Reason: Anxiety Stop: 10/05/17 14:01 Last Admin: 10/04/17 15:13 Dose: 0.25 mg Aspirin (Ecotrin) 81 mg PO DAILY [facility] Last Admin: 10/04/17 10:30 Dose: Not Given Atorvastatin Calcium (Lipitor) 40 mg PO HS [facility] Last Admin: 10/03/17 22:07 Dose: 40 mg Budesonide (Pulmicort Respules) 0.5 mg IH [id number] [facility] Last Admin: 10/04/17 07:56 Dose: 0.5 mg Doxycycline Hyclate (Doryx) 100 mg PO Q12 [facility] PRN Reason: Protocol Stop: 10/07/17 22:01 Last Admin: 10/04/17 10:30 Dose: Not Given Duloxetine HCl (Cymbalta) 30 mg PO HS [facility] Last Admin: 10/03/17 22:07 Dose: 30 mg Levalbuterol HCl (Xopenex) 1.25 mg IH [id number] [facility] Last Admin: 10/04/17 14:09 Dose: Not Given Magnesium Oxide (Mag-Ox) 400 mg PO DAILY [facility] Last Admin: 10/04/17 10:30 Dose: Not Given Methylprednisolone (Solu-Medrol) 20 mg IVP Q12 [facility] Last Admin: 10/04/17 11:44 Dose: 20 mg Oxycodone/Acetaminophen (Percocet 5/325 Mg Tab) 1 tab PO Q6H PRN PRN Reason: Pain, moderate (4-7) Stop: 10/05/17 10:43 Last Admin: 10/03/17 15:50 Dose: 1 tab Pantoprazole Sodium (Protonix Ec Tab) 40 mg PO ACB [facility] Last Admin: 10/04/17 08:30 Dose: Not Given Saliva Substitute (Saliva Substitute) 1 ml PO BID [facility] Last Admin: 10/04/17 10:30 Dose: Not Given Warfarin Sodium (Coumadin) 5 mg PO 1800 [facility] PRN Reason: Protocol Last Admin: 10/02/17 17:08 Dose: 5 mg - Labs Labs: 10/04/17 06:30 10/04/17 06:30 PT 21.9 SECONDS (9.4-12.5) H 10/04/17 06:30 INR 1.88 (0.93-1.08) H 10/04/17 06:30 APTT 31.9 Seconds (25.1-36.5) 10/04/17 06:30 Attending/Attestation - Attestation I have personally seen and examined this patient.: Yes I have fully participated in the care of the patient.: Yes I have reviewed all pertinent clinical information, including history, physical exam and plan: Yes Notes (Text): 10/04/17 17:37 Patient seen with GI family on rounds this morning. In a nutshell this is a 76 year old female with PMHx significant for atrial fibrillation, CAD, COPD, HTN, HLD who [facility], SOB and subsequently suffered cardiac arrest/NSTEMI s/p ACLS with ROSC, acute respiratory failure s/p mechanical ventilation who had new onset anemia in the setting of anticoagulation. GI consulted for anemia. Rectal exam with brown stool. No overt Gi bleeding noted. She has a lung mass suspicious for malignancy. Debilitated but appropriately responded to blood transfusions. In her current state risk of invasive endoscopic procedures outweighs the benefit. Palliative care should discuss goals of care with family and consider hospice. May require terminal gauger feeding options if mortality is more than 3-6 months. Currently she is DNR/DNI. There is no GI contraindication to anti coagulation/ anti platelet in event of no overt bleeding. Resuming of above medications should be done on as needed basis if the benefits outweigh the risks after discussion with the seat builder. Diet as tolerated. DVT/GI prophylaxis. Will sign off now. Thank you for allowing us to participate in the care of this patient. Please reconsult if needed.
--- NOTE | 2017-10-04 17:44 | PN ---
DATE: 10/04/2017 CARDIOLOGY FOLLOWUP SUBJECTIVE: The patient is without shortness of breath, without chest pain. PHYSICAL EXAMINATION: VITAL SIGNS: Blood pressure is 148/91, heart rate in the 90s. NECK: Negative JVD. LUNGS: Decreased breath sounds. HEART: S1 and S2. EXTREMITIES: Without edema. LABORATORY DATA: Hemoglobin is 8.7. Chemistries: BUN and creatinine is 80 and 1.9. IMPRESSION AND PLAN: 1. Status post cardiopulmonary arrest. 2. Prerenal azotemia. 3. Anemia. 4. Hypercholesterolemia. 5. Coronary artery disease. PLAN: Given these findings, we will go discontinue her Lasix. The patient is hardly getting any fluids. Sanju Rich MD
[2017-10-04] MEDS: Oxycodone/Acetaminophen 5/325 mg Tab PO PRN (23:14)
--- NOTE | 2017-10-05 00:08 | CON ---
DATE: 10/04/2017 REASON FOR CONSULTATION: Severe anemia, right lower lobe lung mass. HISTORY OF PRESENT ILLNESS: Ms. Coles is a 76-year-old female resident of [facility] who was brought to the ER with respiratory distress. She has history of chronic anemia, atrial fibrillation, CAD, severe COPD. She was admitted with CHF exacerbation. She went into cardiac arrest, resuscitated. She was also found to have non-STEMI. She was intubated, extubated. She has right lower lobe lung mass on CAT scan of the chest done recently. Her hemoglobin declined to 6.7. She received several units of blood transfusion during the hospitalization. No obvious bleeding from any site. PAST MEDICAL HISTORY: Chronic anemia; atrial fibrillation; CAD; COPD; CHF; compression fracture L1, L2. ALLERGIES: NO KNOWN DRUG ALLERGIES. SOCIAL HISTORY: Single, lives with her daughter. Single resident of [facility]. HOME MEDICATIONS: Atorvastatin, Symbicort, aspirin 81 mg daily, folic acid, iron, Percocet, thiamine, Colace, Coumadin. PERSONAL HISTORY: Heavy smoker. REVIEW OF SYSTEMS: As per HPI. Rest of the 12-point review of systems reviewed, negative. PHYSICAL EXAMINATION: GENERAL: Comfortable in bed, in no acute distress, communicative, complaining of back pain. VITAL SIGNS: Afebrile, temperature 98.7, heart rate 80 per minute, respiratory rate 18 per minute, blood pressure 107/68. HEENT: Pallor positive. NECK: No lymphadenopathy. CHEST: Air entry present and equal bilaterally. No added sounds. CARDIOVASCULAR: S1, S2 normal. No murmur, no gallop. ABDOMEN: Soft, nontender. No hepatosplenomegaly. EXTREMITIES: No edema. NEUROLOGIC: Awake, communicative, not alert, not oriented, moving all the limbs. ABDOMEN: Soft, nontender. No hepatosplenomegaly. EXTREMITIES: No edema. LABORATORY DATA: White count 12.9, hemoglobin 6.5, hematocrit 19.3, platelets 116. Today's blood count, white count 12.5, hemoglobin 8.7, platelet count 85, INR 1.8, PT 21.9, creatinine 1.9, potassium 3.4. ASSESSMENT AND PLAN: 1. Severe anemia. 2. Right lower lobe lung mass. 3. Respiratory failure, status post intubation, extubation. 4. Congestive heart failure, acute exacerbation. 5. Sepsis. PLAN: Status post two units of blood transfusion. We will continue to monitor blood count closely. She is on Coumadin for atrial fibrillation and aspirin. She has multiple medical issues, palliative care consultation has been requested. Evaluated by SHARIF Umaña. The patient is DNR/DNI. We would recommend supportive care. PRBC transfusion as needed. If this improved, lung biopsy can be considered but not now with poor performance status and multiple comorbidities. She is not a candidate for treatment for lung cancer. She has leukocytosis and thrombocytopenia. We will monitor the blood count closely. No bleeding. Thank you Dr. Shipman for allowing us to participate in Ms. Coles's care. Gerda Badillo MD
--- NOTE | 2017-10-05 00:17 | PN ---
DATE: 10/04/2017 SUBJECTIVE: The patient is in bed, in no acute distress. PHYSICAL EXAMINATION: VITAL SIGNS: Temperature is 98, blood pressure is 140/90, respiratory rate is 20, and heart rate of 97. HEENT: Unremarkable. NECK: Supple. LUNGS: Have decreased breath sounds. HEART: Normal S1 and S2. ABDOMEN: Soft and nontender. No rebound or guarding. LABORATORY DATA: Reveals a white count of 12,500, hemoglobin of 8, and platelets of 85. BUN of *------* and creatinine of 1.9. Procalcitonin 0.49. Microbiology reveals blood cultures negative. Nasal MRSA is not detected. Urine cultures negative. Sputum has yeast. Review of orders reveals the patient to be on p.o. doxycycline. The patient is on Solu-Medrol. ASSESSMENT AND PLAN: A 76-year-old female who was seen earlier this morning, admitted with severe sepsis due to health-care associated pneumonia on top of acute diastolic congestive heart failure and chronic congestive heart failure, atrial fibrillation, chronic obstructive lung disease, hypertension, and dyslipidemia. Today is day #10 of doxycycline. We will discontinue the doxycycline. No further antibiotics indicated. Mild leukocytosis most likely secondary to Solu-Medrol. The patient is at risk for developing nosocomial infections. Jean Dawn MD
--- NOTE | 2017-10-05 00:31 | PN ---
DATE: SUBJECTIVE: The patient is a 76-year-old, seen and examined, looks lethargic, not eating well. Mild shortness of breath. PHYSICAL EXAMINATION: VITAL SIGNS: She is afebrile. Pulse 97, respirations 20, and blood pressure 148/91. LUNGS: Bilateral diffusely decreased breath sounds. Soft crackles at bases. HEART: S1 and S2 audible. Regular rate and rhythm. ABDOMEN: Soft, nontender. No rebound, no guarding. NEUROLOGIC: She is lethargic, opens eye on verbal command. LABORATORY DATA: WBC is 12.5, hemoglobin 8.7, hematocrit 25, platelets 285. PT 21.9, INR 1.88. Chemistry, sodium 142, potassium 3.4, chloride 96, CO2 of 37, BUN 18, creatinine 1.9, blood sugar of 115. ASSESSMENT: 1. Respiratory insufficiency. 2. Chronic obstructive pulmonary disease. 3. Hypertension. 4. Chronic atrial fibrillation. 5. Deconditioning. 6. Coronary artery disease. 7. Lung mass. PLAN: Her Coumadin is on hold. We will monitor her H and H. Continue her on nebulizer treatment. Continue her on IV steroids. We will reevaluate the patient in a.m. Hellen Shipman MD
[2017-10-05 06:58] LABS: BASO # 0.01 K/mm3 (0.0-2.0); BASO % 0.1 % (0.0-3.0); GRAN # 10.78 (1.4-6.5); GRAN % 88.3 % (50.0-68.0); LYMPH # 0.5 (1.2-3.4); LYMPH % 4.4 % (22.0-35.0); MEAN CELL VOLUME 91.2 fl (80.0-105.0); MEAN CORPUSCULAR HEMOGLOBIN 30.9 pg (25.0-35.0); MEAN CORPUSCULAR HGB CONC 33.9 g/dl (31.0-37.0); MEAN PLATELET VOLUME 10.8 fl (7.0-11.0); MONO # 0.9 (0.1-0.6); MONO % 7.2 % (1.0-6.0); RBC 2.49 10^6/uL (3.5-6.1); RED CELL DISTRIBUTION WIDTH 16.4 % (11.5-14.5); WHITE BLOOD COUNT 12.2 10^3/ul (4.5-11.0)
[2017-10-05 07:20] LABS: INR 1.96 (0.93-1.08); PROTHROMBIN TIME 22.9 SECONDS (9.4-12.5)
[2017-10-05] MEDS: Acetylcysteine 20% Inhal Soln (4ml) IH SCH (07:20)
[2017-10-05] MEDS: Levalbuterol 1.25 MG/3 ML Inhal Soln UD IH SCH ×2 (07:22→13:14)
[2017-10-05] MEDS: Budesonide 0.5 mg/2 ml Inhal Susp UD IH SCH (07:22)
[2017-10-05 07:29] VITALS: BP 136/73; PULSE 89; RESP 21; TEMP 98; O2SAT 100
[2017-10-05] MEDS: Pantoprazole 40 mg EC Tab PO SCH (07:39)
[2017-10-05] MEDS: Oxycodone/Acetaminophen 5/325 mg Tab PO PRN (07:48)
[2017-10-05 07:57] LABS: ALB/GLOB RATIO 1.1 (1.1-1.8); ALBUMIN 3.4 g/dL (3.0-4.8); CALCIUM 9.7 mg/dL (8.4-10.5); HEMOGLOBIN 7.7 g/dL (12.0-16.0)
--- NOTE | 2017-10-05 08:10 | PN ---
DATE: 10/05/2017 SUBJECTIVE: The patient appears comfortable at rest. She is not short of breath. She remains extremely weak appearing. PHYSICAL EXAMINATION VITAL SIGNS: (Last noted in the computer): Temperature is 97.6, pulse is 79, respirations 18, blood pressure 135/75. Oxygen saturation on nasal cannula is 98%. HEENT: Normocephalic, atraumatic. No JVD. CARDIOVASCULAR: Systolic ejection murmur at the lower left sternal border. Positive S3 gallop. LUNGS: Decreased breath sounds at the bases with crackles. Minimal/less bilateral rhonchi. No wheezing. EXTREMITIES: Positive for mild edema. No cyanosis, no clubbing. Calves are nontender to palpation. GI: Abdomen is soft, nontender and nondistended. Bowel sounds are positive. SKIN: No acute rash. NEUROLOGIC: Limited at the present time. IMPRESSION: 1. Status post cardiopulmonary resuscitation. 2. Respiratory failure. 3. Advanced chronic obstructive pulmonary disease. 4. Congestive heart failure. 5. Probable underlying pneumonia. 6. Non-ST elevation myocardial infarction. 7. Right lower lobe lung mass. 8. Atelectasis, effusion - left lower lobe. 9. Cardiac arrhythmias. Ventricular tachycardia. 10. Worsening anemia. PLAN: The patient appears comfortable this morning. She is not short of breath at rest. She remains extremely weak appearing. On physical exam, her bronchospasm is less. In addition, the oxygen saturation on nasal cannula is now 98%. I will continue the current nebulizer treatments and low-dose intravenous steroids for now. Input by Dr. Badillo (Oncology) is noted. Input by Nirmala Mcleod (Palliative Care) is also noted. A family meeting is planned for later today. The clinical status of this patient has certainly improved - compared to the initial presentation. However, again, unfortunately, the overall status/prognosis for this patient remains very poor. All are aware. I will discuss the above with Dr. Shipman. Iván Keys MD [facility]
[2017-10-05 08:29] LABS: HAPTOGLOBIN <15 mg/dL (43-212)
[2017-10-05] MEDS ORDERED: Potassium Chloride 40 mEq/30 ml LIQ UD PO ONE (08:44)
[2017-10-05] MEDS: MethylPREDNISolone 40 mg Vial IVP SCH (09:44)
[2017-10-05] MEDS: Magnesium Oxide 400 mg Tab UD PO SCH (09:44)
[2017-10-05] MEDS ORDERED: Morphine 2 mg/ml ISec IVP PRN (11:14)
--- NOTE | 2017-10-05 12:24 | CP.PCM.PN ---
Subjective - Date & Time of Evaluation Date of Evaluation: 10/05/17 Time of Evaluation: 11:00 - Subjective Subjective: Weak, dyspniec, egernalized pain. Stating she has had enough, wants to be left alone,"wants to " Objective - Vital Signs/Intake and Output Vital Signs (last 24 hours): Temp Pulse Resp BP Pulse Ox 98.0 F 89 21 136/73 100 10/05/17 07:28 10/05/17 07:28 10/05/17 07:28 10/05/17 07:28 10/05/17 07:28 Intake and Output: 10/05/17 10/05/17 06:59 18:59 Intake Total 120 Output Total 600 Balance -480 - Medications Medications: Current Medications Acetylcysteine (Acetylcysteine 20%) 4 ml [facility] [id number] [facility] Last Admin: 10/05/17 07:20 Dose: Not Given Alprazolam (Xanax) 0.25 mg PO TID PRN; Protocol PRN Reason: Anxiety Stop: 10/05/17 14:01 Last Admin: 10/05/17 09:50 Dose: 0.25 mg Aspirin (Ecotrin) 81 mg PO DAILY [facility] Last Admin: 10/05/17 09:44 Dose: 81 mg Atorvastatin Calcium (Lipitor) 40 mg PO [facility] Last Admin: 10/04/17 21:00 Dose: 40 mg Budesonide (Pulmicort Respules) 0.5 mg [facility] [id number] [facility] Last Admin: 10/05/17 07:22 Dose: Not Given Duloxetine HCl (Cymbalta) 30 mg PO [facility] Last Admin: 10/04/17 21:00 Dose: 30 mg Potassium Chloride (Potassium Chloride 10 Meq/100 Ml) 10 meq in 100 mls @ 50 mls/hr IVPB ONCE ONE Stop: 10/05/17 13:00 Last Admin: 10/05/17 11:39 Dose: Not Given Levalbuterol HCl (Xopenex) 1.25 mg [facility] [id number] [facility] Last Admin: 10/05/17 07:22 Dose: Not Given Magnesium Oxide (Mag-Ox) 400 mg PO DAILY [facility] Last Admin: 10/05/17 09:44 Dose: 400 mg Methylprednisolone (Solu-Medrol) 20 mg IVP Q12 [facility] Last Admin: 10/05/17 09:44 Dose: 20 mg Morphine Sulfate (Morphine) 2 mg IVP Q4H PRN PRN Reason: Pain, moderate (4-7) Last Admin: 10/05/17 12:05 Dose: 2 mg Pantoprazole Sodium (Protonix Ec Tab) 40 mg PO ACB [facility] Last Admin: 10/05/17 07:39 Dose: 40 mg Saliva Substitute (Saliva Substitute) 1 ml PO BID ANU[facility] Last Admin: 10/04/17 10:30 Dose: Not Given Warfarin Sodium (Coumadin) 5 mg PO 1800 ANUJA PRN Reason: Protocol Last Admin: 10/02/17 17:08 Dose: 5 mg - Labs Labs: 10/05/17 06:20 10/05/17 06:20 PT 22.9 SECONDS (9.4-12.5) H 10/05/17 06:20 INR 1.96 (0.93-1.08) H 10/05/17 06:20 APTT 31.9 Seconds (25.1-36.5) 10/04/17 06:30 - Constitutional Appears: Cachectic, Chronically Ill - Head Exam Head Exam: NORMOCEPHALIC - Eye Exam Eye Exam: Normal appearance, PERRL - ENT Exam ENT Exam: Mucous Membranes Moist, Normal Oropharynx - Respiratory Exam Respiratory Exam: Decreased Breath Sounds, Rhonchi Additional comments: dyspnea - Cardiovascular Exam Cardiovascular Exam: Tachycardia, +S1, +S2 - GI/Abdominal Exam GI & Abdominal Exam: Soft, Tenderness, Diminished Bowel Sounds - Extremities Exam Extremities Exam: Normal Capillary Refill, Normal Inspection - Neurological Exam Neurological Exam: Alert, Oriented x3 - Skin Skin Exam: Dry, Pallor Assessment and Plan - Assessment and Plan (Free Text) Assessment: 76 year old female with history of COPD, HTN wh was admitted with hypoxia, hypercapnea, s/p intubation,pneumonia, lung mass, left steve thorax,severe anemia. The patient is very weak. She is alert and oriented. She does not want to continue medical interventions. She is dyspneic, with generalized /diffuse pain. She is asking to be allowed to peacefully. Hospice care explained. Patient states she wants to be placed on hospice services. Patients daughter, Carolee advised of patients wishes. Hospice services also explained to daughter. Carolee is in agreeable with this plan. Time spent with patient and family in goals of care, hospice and end of life discussions, 45 minutes Plan: Hospice evaluation for [facility]
--- NOTE | 2017-10-06 04:41 | DS ---
HISTORY OF PRESENT ILLNESS: The patient is a 76-year-old, seen and examined, looks slightly lethargic, came in with fever, shortness of breath, had respiratory distress, was intubated, was in ICU and was successfully extubated, had chronic AFib on anticoagulant, had dropped hemoglobin, was given multiple transfusions. The patient is increasingly lethargic, so daughter made her DNR and requested for hospice care today. So, she is being discharged to hospice care today. PHYSICAL EXAMINATION: GENERAL: She is lethargic. VITAL SIGNS: She is afebrile, pulse 89, respirations 21, blood pressure 137/73. LUNGS: Bilateral fair airflow, bilateral diffusely decreased breath sounds with soft crackle. HEART: S1 and S2 audible. ABDOMEN: Soft, nontender. No rebound, no guarding. NEUROLOGIC: The patient is sleepy and lethargic. LABORATORY DATA: WBC is 12.2, hemoglobin 7.7, hematocrit 22.7, platelet of 92. PT is 22.9, INR 1.96. Chemistry: Sodium 146, potassium 2.8, chloride 96, CO2 of 39, BUN 82, creatinine 2.0, blood sugar of 103. ASSESSMENT: 1. Respiratory failure. 2. Electrolyte imbalance. 3. Hypokalemia. 4. Lethargy and deconditioning. 5. Renal insufficiency. PLAN: The patient is being transferred to hospice care. I will hold off her IV potassium supplementation and give her supportive care. Hellen Shipman MD
[2017-10-06 12:44] LABS: ALBUMIN (PEP) 3.6 g/dL (3.8-4.8); ALPHA-1-GLOBULIN (PEP) 0.5 g/dL (0.2-0.3)
== END 2017-10-05 13:28 | disposition hospice, inpatient (51) | DRG 871 ==
LOC: ED 03:59 → ERH 05:37 → CCU 21:03 → 5RNO 10-02 19:05
PROVIDERS: ADMIT Internal Medicine; ATTEND Internal Medicine
PROC: 5A1945Z Respiratory Ventilation, 24-96 Consecutive Hours (ICD-10-PCS; principal; 2017-09-25)
PROC: 0BH17EZ Insertion of Endotracheal Airway into Trachea, Via Natural or Artificial Opening (ICD-10-PCS; 2017-09-25)
PROC: 5A12012 Performance of Cardiac Output, Single, Manual (ICD-10-PCS; 2017-09-25)
PROC: 30233N1 Transfusion of Nonautologous Red Blood Cells into Peripheral Vein, Percutaneous Approach (ICD-10-PCS; 2017-09-25)
PROC: 3E0F7GC Introduction of Other Therapeutic Substance into Respiratory Tract, Via Natural or Artificial Opening (ICD-10-PCS; 2017-09-26)
PROC: 5A09457 Assistance with Respiratory Ventilation, 24-96 Consecutive Hours, Continuous Positive Airway Pressure (ICD-10-PCS; 2017-09-27)
DX: A41.9 Sepsis, unspecified organism (principal); J18.9 Pneumonia, unspecified organism; I21.4 Non-ST elevation (NSTEMI) myocardial infarction; I50.33 Acute on chronic diastolic (congestive) heart failure; I47.2 Ventricular tachycardia; J96.01 Acute respiratory failure with hypoxia; J96.02 Acute respiratory failure with hypercapnia; D69.6 Thrombocytopenia, unspecified; I11.0 Hypertensive heart disease with heart failure; E83.42 Hypomagnesemia; J44.0 Chronic obstructive pulmonary disease with (acute) lower respiratory infection; M48.56XA Collapsed vertebra, not elsewhere classified, lumbar region, initial encounter for fracture; J44.1 Chronic obstructive pulmonary disease with (acute) exacerbation; I48.2 Chronic atrial fibrillation; D64.9 Anemia, unspecified; M54.12 Radiculopathy, cervical region; E78.5 Hyperlipidemia, unspecified; M15.9 Polyosteoarthritis, unspecified; I35.0 Nonrheumatic aortic (valve) stenosis; I25.10 Atherosclerotic heart disease of native coronary artery without angina pectoris; Z66 Do not resuscitate; R65.20 Severe sepsis without septic shock; E87.6 Hypokalemia; F41.9 Anxiety disorder, unspecified; Z51.5 Encounter for palliative care; N28.9 Disorder of kidney and ureter, unspecified; Y95 Nosocomial condition; F17.210 Nicotine dependence, cigarettes, uncomplicated; H26.9 Unspecified cataract; Z96.642 Presence of left artificial hip joint; Z79.01 Long term (current) use of anticoagulants; Z79.51 Long term (current) use of inhaled steroids; Z79.82 Long term (current) use of aspirin